=== PATIENT | female | born 1965 | race Caucasian/White ===

== ENCOUNTER 2023-10-22 05:40 | Inpatient (IN) | payer OTHER, SELFPAY ==
[2023-10-22] VITALS (8 sets, daily range): BP systolic 87–129; BP diastolic 42–85; BMI 47.0
--- NOTE | 2023-10-22 02:37 | ED.GENMED ---
History of Present Illness
<CARISSA Cuevas - Last Filed: 10/24/23 20:49>
General
Chief Complaint: Abdominal Pain
Source: patient
Exam Limitations: none
Time Seen by Provider: 10/22/23 02:37
Nursing documentation reviewed up to this point in time: agreed with
Travel History
Have you had any contact with someone who has COVID-19?: No
Do you have any symptoms of coronavirus? Fever > 100 degrees, chills, cough, shortness of breath, sore throat, loss of taste or smell, muscle aches, or headache?: Yes
Symptoms:: chills
History of Present Illness
History of Present Illness:
58-year-old female with metastatic breast cancer, issues with terminal ileum pain in the past, PE A-fib CHF DVT hyperlipidemia left lower branch block presents to the ER complaining abdominal pain. She reports pain started around 6:00 after eating.
She feels pain is in her lower abdomina rate region over her umbilical region. She is nauseous with this pain however has not vomited. She reports that she has had issues with her terminal ileum several times in the past. They are unsure of
exact cause of symptoms. She reports was last here in May for this.
Pt denies in urinary frequency urgency or dysuria l
<EILEEN Barnes - Last Filed: 10/22/23 05:29>
History of Present Illness
History of Present Illness:
58-year-old female with metastatic breast cancer, issues with terminal ileum pain in the past, PE A-fib CHF DVT hyperlipidemia left lower branch block presents to the ER complaining abdominal pain. She reports pain started around 6:00 after eating.
She feels pain is in her lower abdomen region over her umbilical region. She is nauseous with this pain however has not vomited. She reports that she has had issues with her terminal ileum several times in the past. They are unsure of exact
cause of symptoms. She reports was last here in May for this.
Pt denies in urinary frequency urgency or dysuria, fever, diarrhea, constipation, edema, cough, CP or SOB.
Past History
<CARISSA Cuevas - Last Filed: 10/24/23 20:49>
Past History
ED Past Medical History: Arrthythmia (Paroxysmal atrial fibrillation), Cancer (Metastatic breast cancer in remission), Other (IBS, diverticulosis, L BBB, Ulcers) and Other (Recurrent partial small bowel obstructions); Negative HTN,
Hypercholesterolemia or NIDDM
ED Past Surgical History: Gynecological (hysterectomy,), Urological (Partial left Nephrectomy) and Other (Skin cancer removal, right mastectomy)
Social History
Tobacco: Former smoker
Alcohol: None
Drug: None
Personal:
Living: with family
Employment: Employed
Family History
Family History: Other (Noncontributory sister passed from breast cancer father passed from gallbladder cancer)
Review of Systems
<CARISSA Cuevas - Last Filed: 10/24/23 20:49>
Review of Systems
Allergies reviewed?: Yes
All Other Systems: ROS reviewed and negative except as documented in HPI and ROS
Constitutional: Reports no symptoms; Denies fever, fatigue or chills
EENT: Reports no symptoms
Respiratory: Reports no symptoms
Cardiac: Reports no symptoms
ABD/GI: Reports abdominal pain and nausea; Denies vomiting, diarrhea or constipated
Musculoskeletal: Reports no symptoms
Skin: Reports no symptoms
Psychiatric: Reports no symptoms
<EILEEN Barnes - Last Filed: 10/22/23 05:29>
Review of Systems
: Reports no symptoms; Denies dysuria or bleeding
Phy Exam
<CARISSA Cuevas - Last Filed: 10/24/23 20:49>
General Physical Exam
General Presentation: no apparent distress
General age: appears stated age
General Skin: warm and dry
General Habitus: normal and obese
General Mental: alert
Gastrointestinal Exam
Gastrointestinal Exam: soft and other (tender joycelyn-umbilical region )
Neurological Exam
Neurological Exam: alert and oriented x3
Musculoskeletal Exam
Musculoskeletal Exam: full ROM
Skin Exam
Skin Exam: normal color and warm/dry
Psychiatric Exam
Psychiatric Exam: normal mood/affect
<EILEEN Barnes - Last Filed: 10/22/23 05:29>
General Physical Exam
General Hydration: appears well hydrated
Eye Exam
Eye Exam: PERRL
Cardiovascular Exam
Cardiovascular Exam: regular rate/rhythm, no edema, no murmur and normal peripheral pulses
Heart Sounds: normal
Pulmonary Exam
Pulmonary Exam: lungs clear, no respiratory distress, no crackles and no wheezing
Gastrointestinal Exam
Gastrointestinal Exam: normal bowel sounds
Course
<CARISSA Cuevas - Last Filed: 10/24/23 20:49>
Orders/Labs/Results
Orders:
Orders
10/22/23 02:46
CT Abd/Pel (IV only)-[facility] only Urgent
Comment:
Reason For Exam: abd pain
0.9% Sodium Chloride 1000 ml [Nss] 1,000 ml IV BOLUS
HYDROmorphone [Dilaudid] 1 mg IV NOW STA
Ondansetron Injectable [Zofran] 4 mg IV NOW STA
10/22/23 02:49
Complete Blood Count/With Diff Urgent
10/22/23 03:36
Comprehensive Metabolic Panel Urgent
Lipase Urgent
10/22/23 04:49
HYDROmorphone [Dilaudid] 0.5 mg IV NOW STA
Ondansetron Injectable [Zofran] 4 mg IV NOW STA
10/22/23 05:05
Lactic Acid Urgent
10/22/23 05:27
Admit/Transfer Patient As Directed
Co-Sign Provider:
Level of Care: Inpatient admission
Assign to:: Medical/Surgical
Physician / Group: Jaswant
Diagnosis: SBO
Reason for Hospitalization: SBO
Expected length of stay greater than two midnights?: Yes
ELOS- Estimated Length of Stay in days: 2
I certify the patient meets the requirements for IP care: Yes
10/22/23 05:28
Code Status As Directed
Resuscitation Status: Full Code
10/22/23 07:27
Acetaminophen [Tylenol] 650 mg PO Q4HPRN PRN
HYDROmorphone [Dilaudid] 0.5 mg IV Q4HPRN PRN
Ondansetron Injectable [Zofran] 4 mg IV Q6HPRN PRN
10/22/23 07:27
Consult Notification Routine
Specialty to Notify: Surgical
Date consulting provider notified: 10/22/23
Time consulting provider notified: 07:30
Notified:: Provider
Comment: TT 7:30
SURGICAL CONSULT Routine
Consulting Provider: Casey Pereira
Was physician already notified: No
Reason for consult: SBO
Activity As Directed
Activity Level: Ambulate
I/O [Intake/ Output] As Directed
Frequency: Per unit guidelines
Vital Signs As Directed
Frequency: Per unit guidelines
Weight As Directed
Frequency: Daily
Oxygen Therapy [O2 Therapy] [RESP] Routine
Titrate/Wean O2 to maintain O2 sat greater than (%): 94
DX Deep Vein Thrombosis Video Routine
10/22/23 08:00
Carvedilol [Coreg] 12.5 mg PO BID
Heparin 5,000 units SC Q12
Sacubitril 97/Valsartan 103 [Entresto 97 mg/103 mg] 1 tab PO BID
palbociclib [Ibrance] 100 mg PO DAILY
10/22/23 08:46
TSH Reflex To Free T4 Routine
10/22/23 12:00
Stsmkjxkc-Tsf-Cwdb [Femara] 2.5 mg PO DAILY@1200
10/22/23 14:45
Urinalysis Reflex To Culture Urgent
Date Specimen was Collected: 10/22/23
Time Specimen was Collected: 14:42
10/23/23 05:57
Basic Metabolic Panel IN AM
Complete Blood Count/No Diff IN AM
10/23/23 Breakfast
NPO
Allow oral meds: Yes
Allow clear liquids: Sips of Clears
NPO with Ice Chips: Yes
Abnormal Lab Results
10/22/23 10/22/23
02:49 03:36
WBC 3.9 L 10^3/uL
(4.8-10.8)
RBC 3.68 L 10^6/uL
(4.20-5.40)
Hgb 11.8 L g/dL
(12.0-16.0)
Hct 35.2 L %
(37.0-47.0)
MCH 32.1 H pg
(27.0-31.0)
RDW 15.7 H %
(11.5-14.5)
Absolute Lymphs (auto) 0.8 L 10^3/uL
(1.2-3.4)
Lymphocytes % 19.3 L %
(20.5-51.1)
Chloride 109 H mmol/L
(98-107)
Glucose 116 H mg/dl
(70-99)
Calcium 8.3 L mg/dl
(8.4-10.2)
Total Protein 6.1 L g/dl
(6.3-8.2)
10/22/23 02:49
10/22/23 03:36
Vital Signs
Initial and Last Documented VS:
Initial Vital Signs
Temp Pulse Resp BP Pulse Ox
99.3 F 101 22 112/80 97
10/22/23 01:43 10/22/23 01:43 10/22/23 01:43 10/22/23 01:43 10/22/23 01:43
Last Documented Vital Signs
Temp Pulse Resp BP Pulse Ox
98.0 F 95 16 110/66 95
10/23/23 07:00 10/23/23 07:00 10/23/23 07:00 10/23/23 08:18 10/23/23 08:20
Supply Person consulted with Physician
Supply Person consulted with physician?: Yes
Name of Physician Consulted: Benjamín
<EILEEN Barnes - Last Filed: 10/22/23 05:29>
Orders/Labs/Results
Orders:
Orders
10/22/23 02:46
CT Abd/Pel (IV only)-DH only Urgent
Comment:
Reason For Exam: abd pain
0.9% Sodium Chloride 1000 ml [Nss] 1,000 ml IV BOLUS
HYDROmorphone [Dilaudid] 1 mg IV NOW STA
Ondansetron Injectable [Zofran] 4 mg IV NOW STA
10/22/23 02:49
Complete Blood Count/With Diff Urgent
10/22/23 03:36
Comprehensive Metabolic Panel Urgent
Lipase Urgent
10/22/23 04:49
HYDROmorphone [Dilaudid] 0.5 mg IV NOW STA
Ondansetron Injectable [Zofran] 4 mg IV NOW STA
10/22/23 05:05
Lactic Acid Urgent
10/22/23 05:27
Admit/Transfer Patient As Directed
Co-Sign Provider:
Level of Care: Inpatient admission
Assign to:: Medical/Surgical
Physician / Group: Jaswant
Diagnosis: SBO
Reason for Hospitalization: SBO
Expected length of stay greater than two midnights?: Yes
ELOS- Estimated Length of Stay in days: 2
I certify the patient meets the requirements for IP care: Yes
10/22/23 05:28
Code Status As Directed
Resuscitation Status: Full Code
10/22/23 07:27
Acetaminophen [Tylenol] 650 mg PO Q4HPRN PRN
HYDROmorphone [Dilaudid] 0.5 mg IV Q4HPRN PRN
Ondansetron Injectable [Zofran] 4 mg IV Q6HPRN PRN
10/22/23 07:27
Consult Notification Routine
Specialty to Notify: Surgical
Date consulting provider notified: 10/22/23
Time consulting provider notified: 07:30
Notified:: Provider
Comment: TT 7:30
SURGICAL CONSULT Routine
Consulting Provider: Casey Pereira
Was physician already notified: No
Reason for consult: SBO
Activity As Directed
Activity Level: Ambulate
I/O [Intake/ Output] As Directed
Frequency: Per unit guidelines
Vital Signs As Directed
Frequency: Per unit guidelines
Weight As Directed
Frequency: Daily
Oxygen Therapy [O2 Therapy] [RESP] Routine
Titrate/Wean O2 to maintain O2 sat greater than (%): 94
DX Deep Vein Thrombosis Video Routine
10/22/23 08:00
Carvedilol [Coreg] 12.5 mg PO BID
Heparin 5,000 units SC Q12
Sacubitril 97/Valsartan 103 [Entresto 97 mg/103 mg] 1 tab PO BID
palbociclib [Ibrance] 100 mg PO DAILY
10/22/23 08:46
TSH Reflex To Free T4 Routine
10/22/23 12:00
Fnvzlcrsj-Tdc-Rjpo [Femara] 2.5 mg PO DAILY@1200
10/22/23 14:45
Urinalysis Reflex To Culture Urgent
Date Specimen was Collected: 10/22/23
Time Specimen was Collected: 14:42
10/23/23 05:57
Basic Metabolic Panel IN AM
Complete Blood Count/No Diff IN AM
10/23/23 Breakfast
NPO
Allow oral meds: Yes
Allow clear liquids: Sips of Clears
NPO with Ice Chips: Yes
Abnormal Lab Results
10/22/23 10/22/23
02:49 03:36
WBC 3.9 L 10^3/uL
(4.8-10.8)
RBC 3.68 L 10^6/uL
(4.20-5.40)
Hgb 11.8 L g/dL
(12.0-16.0)
Hct 35.2 L %
(37.0-47.0)
MCH 32.1 H pg
(27.0-31.0)
RDW 15.7 H %
(11.5-14.5)
Absolute Lymphs (auto) 0.8 L 10^3/uL
(1.2-3.4)
Lymphocytes % 19.3 L %
(20.5-51.1)
Chloride 109 H mmol/L
(98-107)
Glucose 116 H mg/dl
(70-99)
Calcium 8.3 L mg/dl
(8.4-10.2)
Total Protein 6.1 L g/dl
(6.3-8.2)
10/22/23 02:49
10/22/23 03:36
Vital Signs
Initial and Last Documented VS:
Initial Vital Signs
Temp Pulse Resp BP Pulse Ox
99.3 F 101 22 112/80 97
10/22/23 01:43 10/22/23 01:43 10/22/23 01:43 10/22/23 01:43 10/22/23 01:43
Last Documented Vital Signs
Temp Pulse Resp BP Pulse Ox
98.0 F 95 16 110/66 95
10/23/23 07:00 10/23/23 07:00 10/23/23 07:00 10/23/23 08:18 10/23/23 08:20
<Moise Butts DO - Last Filed: 10/22/23 04:50>
Orders/Labs/Results
Orders:
Orders
10/22/23 02:46
CT Abd/Pel (IV only)-[facility] only Urgent
Comment:
Reason For Exam: abd pain
0.9% Sodium Chloride 1000 ml [Nss] 1,000 ml IV BOLUS
HYDROmorphone [Dilaudid] 1 mg IV NOW STA
Ondansetron Injectable [Zofran] 4 mg IV NOW STA
10/22/23 02:49
Complete Blood Count/With Diff Urgent
10/22/23 03:36
Comprehensive Metabolic Panel Urgent
Lipase Urgent
10/22/23 04:49
HYDROmorphone [Dilaudid] 0.5 mg IV NOW STA
Ondansetron Injectable [Zofran] 4 mg IV NOW STA
10/22/23 05:05
Lactic Acid Urgent
10/22/23 05:27
Admit/Transfer Patient As Directed
Co-Sign Provider:
Level of Care: Inpatient admission
Assign to:: Medical/Surgical
Physician / Group: Jaswant
Diagnosis: SBO
Reason for Hospitalization: SBO
Expected length of stay greater than two midnights?: Yes
ELOS- Estimated Length of Stay in days: 2
I certify the patient meets the requirements for IP care: Yes
10/22/23 05:28
Code Status As Directed
Resuscitation Status: Full Code
10/22/23 07:27
Acetaminophen [Tylenol] 650 mg PO Q4HPRN PRN
HYDROmorphone [Dilaudid] 0.5 mg IV Q4HPRN PRN
Ondansetron Injectable [Zofran] 4 mg IV Q6HPRN PRN
10/22/23 07:27
Consult Notification Routine
Specialty to Notify: Surgical
Date consulting provider notified: 10/22/23
Time consulting provider notified: 07:30
Notified:: Provider
Comment: TT 7:30
SURGICAL CONSULT Routine
Consulting Provider: Casey Pereira
Was physician already notified: No
Reason for consult: SBO
Activity As Directed
Activity Level: Ambulate
I/O [Intake/ Output] As Directed
Frequency: Per unit guidelines
Vital Signs As Directed
Frequency: Per unit guidelines
Weight As Directed
Frequency: Daily
Oxygen Therapy [O2 Therapy] [RESP] Routine
Titrate/Wean O2 to maintain O2 sat greater than (%): 94
DX Deep Vein Thrombosis Video Routine
10/22/23 08:00
Carvedilol [Coreg] 12.5 mg PO BID
Heparin 5,000 units SC Q12
Sacubitril 97/Valsartan 103 [Entresto 97 mg/103 mg] 1 tab PO BID
palbociclib [Ibrance] 100 mg PO DAILY
10/22/23 08:46
TSH Reflex To Free T4 Routine
10/22/23 12:00
Fmthhjrlk-Vlu-Ykft [Femara] 2.5 mg PO DAILY@1200
10/22/23 14:45
Urinalysis Reflex To Culture Urgent
Date Specimen was Collected: 10/22/23
Time Specimen was Collected: 14:42
10/23/23 05:57
Basic Metabolic Panel IN AM
Complete Blood Count/No Diff IN AM
10/23/23 Breakfast
NPO
Allow oral meds: Yes
Allow clear liquids: Sips of Clears
NPO with Ice Chips: Yes
Abnormal Lab Results
10/22/23 10/22/23
02:49 03:36
WBC 3.9 L 10^3/uL
(4.8-10.8)
RBC 3.68 L 10^6/uL
(4.20-5.40)
Hgb 11.8 L g/dL
(12.0-16.0)
Hct 35.2 L %
(37.0-47.0)
MCH 32.1 H pg
(27.0-31.0)
RDW 15.7 H %
(11.5-14.5)
Absolute Lymphs (auto) 0.8 L 10^3/uL
(1.2-3.4)
Lymphocytes % 19.3 L %
(20.5-51.1)
Chloride 109 H mmol/L
(98-107)
Glucose 116 H mg/dl
(70-99)
Calcium 8.3 L mg/dl
(8.4-10.2)
Total Protein 6.1 L g/dl
(6.3-8.2)
10/22/23 02:49
10/22/23 03:36
Vital Signs
Initial and Last Documented VS:
Initial Vital Signs
Temp Pulse Resp BP Pulse Ox
99.3 F 101 22 112/80 97
10/22/23 01:43 10/22/23 01:43 10/22/23 01:43 10/22/23 01:43 10/22/23 01:43
Last Documented Vital Signs
Temp Pulse Resp BP Pulse Ox
98.0 F 95 16 110/66 95
10/23/23 07:00 10/23/23 07:00 10/23/23 07:00 10/23/23 08:18 10/23/23 08:20
<CARISSA Cuevas - Last Filed: 10/24/23 20:49>
MDM/Problems Addressed
Differential Diagnosis Includes:
Not limited to terminal ileitis, diverticulitis, constipation, biliary colic
MDM/Problems Addressed:
250:Patient with history of recurrent abdominal pain. She reports she has had terminal ileitis in the past. She reports this does feel similar. She started with abdominal pain around periumbilical area around 6 PM. Mild nausea she denies any
urine frequency urgency or dysuria. Denies any constipation or diarrhea. Patient's last CAT scan was May. She does have history of metastatic breast cancer with partial nephrectomy with normal renal function in May. Will medicate for
pain hydrate and treat nausea. Case discussed with the physician and full care transferred to DR Butts at this time.
<EILEEN Barnes - Last Filed: 10/22/23 05:29>
*Critical Care Note
Total Time (30-74mins, 75-104mins- exclusive of procedures): Not Applicable
<Moise Butts DO - Last Filed: 10/22/23 04:50>
Update Note
Update Note:
CT ABDOMEN AND PELVIS with IV contrast
IMPRESSION:
Comparison: 08/12/2023.
Findings compatible with a small bowel obstruction.
Multiple dilated loops of small bowel measuring up to 3.32 cm. Transition point in the right lower quadrant where the small bowel becomes decompressed and somewhat thickened.
Small amount of free fluid and mesenteric edema. Consider correlation with lactate levels for any signs of ischemia.
Hysterectomy.
Multiple subcentimeter low attenuation lesions in the liver. These appear increased in number compared to the prior. Follow-up advised to exclude metastatic disease.
Right-sided mastectomy.
Sclerotic focus within the L3 vertebral body, unchanged.
ED Attending Note
<CARISSA Cuevas - Last Filed: 10/24/23 20:49>
-
Portions of this chart may have been created with voice recognition software.� Occasional wrong word or��sound alike� substitutions may have occurred due to the inherent limitations of voice recognition software.
<Moise Butts DO - Last Filed: 10/22/23 04:50>
ED Attending Note
Patient seen and examined by attending physician: Yes
I performed the substantive portion of visit, reviewed & personally made and approve the management plan that is documented in note by myself or MORGAN.: Yes
ED Attending Note:
This a pleasant 58-year-old female presents with abdominal pain. She has a history of metastatic breast cancer and has had terminal ileitis in the past. She reports that the pain began around 6 PM just after finishing dinner. She states that the
pain is in her lower abdomen. She does report some nausea without vomiting. States that this pain is similar to her previous terminal ileitis in the past. She is seen by gastroenterology but they have not been able to determine the etiology.
Patient was seen in conjunction with the nurse practitioner and the PA student. I have reviewed and agree with the history and treatment plan presented. On my independent physical exam, patient is awake, alert, and oriented x3, minimal acute
distress resting comfortably on the bed. Abdomen is soft and on distended. Moves all 4 extremities. Skin is warm and dry.
Plan is lab work and CT scan.
Discharge Plan
Departure
Patient Disposition: Admit
Date of Disposition: 10/22/23
Time of Disposition: 04:50
Admit to: Telemetry
Presentation/result/management discussed w/ accepting MD/DO: Hospitalist
Condition: Fair
Discharge Problem:
Small bowel obstruction
Interventions
Interventions:
*Neglect/Abuse Screening Last Done: 10/22/23 01:43
[2023-10-22] MEDS: DILAUDID 1 MG IV (02:53)
[2023-10-22] MEDS: ZOFRAN 4 MG IV ×2 (02:53→04:56)
[2023-10-22] MEDS: NSS 1000 IV (02:53)
[2023-10-22 03:07] LABS: % Immature Granulocytes 0.3 % (0-0.5); % Lymphocytes 19.3 % (20.5-51.1); % Neutrophils 70.4 % (42.2-75.2); Absolute Lymphocytes 0.8 10^3/uL (1.2-3.4); Absolute Monocytes 0.3 10^3/uL (0.1-0.6); Absolute Neutrophils 2.7 10^3/uL (1.4-6.5); Hematocrit 35.2 % (37.0-47.0); Hemoglobin 11.8 g/dL (12.0-16.0); Mean Corp Hgb Conc. 33.5 g/dL (33.0-37.0); Mean Corpuscular Hgb 32.1 pg (27.0-31.0); Mean Corpuscular Volume 95.7 fL (81.0-99.0); Mean Platelet Volume 10.2 fL (7.4-10.4); Nucleated Red Blood Cells % 0 %; Platelet Count 195 10^3/uL (130-400); Red Blood Cell Count 3.68 10^6/uL (4.20-5.40); Red Cell Dist. Width 15.7 % (11.5-14.5); White Blood Cell Count 3.9 10^3/uL (4.8-10.8)
[2023-10-22 04:06] LABS: ALT (SGPT) 14 U/L (0-35); AST (SGOT) 20 U/L (14-36); Albumin 3.6 g/dl (3.5-5.0); Alkaline Phosphatase 87 U/L (38-126); Blood Urea Nitrogen 14 mg/dl (7-17); Calcium 8.3 mg/dl (8.4-10.2); Carbon Dioxide 25 mmol/L (22-30); Chloride 109 mmol/L (98-107); Glucose 116 mg/dl (70-99); Lipase 57 U/L (23-300); Sodium 137 mmol/L (135-145); Total Bilirubin 0.6 mg/dl (0.2-1.3); Total Protein 6.1 g/dl (6.3-8.2); eGFR > 60.00
[2023-10-22] MEDS: DILAUDID 0.5 MG IV (04:57)
--- NOTE | 2023-10-22 05:13 | HPS.HSE ---
Family Physician
-
Family Physician: Pedro Hartmann
Chief Complaint
-
Abd Pain
History of Present Illness
Patient is a 58y F with PMH significant for metastatic breast cancer, history of renal cancer and history of DVT / PE who presents to ED complaining of abdominal pain. Patient states that pain started suddenly around 6 PM this evening after
eating dinner. Patient notes pain in the center of the abdomen near the umbilicus. She reports nausea but no episodes of emesis. She had a normal BM on AM and notes that she has passed a small amount of flatus since the pain began.
Patient reports multiple prior episodes of similar symptoms since her partial L nephrectomy in 2014. Most episodes have been very mild and her last hospitalization for this was about 4 years ago.
Patient describes a 'terminal ileum problem', but it sounds more c/w RLQ transition point and recurrent SBO than IBD / terminal ileitis. She has had colonoscopies / biopsies in the past which have reportedly been normal.
Medical History
Past Medical History
Past Medical History: Reports Other
Additional Past Medical History:
Metastatic Breast Cancer
GERD / Hiatal Hernia
Left Kidney Oncocytoma
Migraine Headaches
PFO
CHF
Anxiety / Depression
Basal Cell Skin Cancer
ASCVD / Carotid Stenosis
History of PE and DVT
Past Surgical History: Reports Other
Additional Past Surgical History:
Left Partial Nephrectomy
Right Mastectomy / Axillary Dissection
Skin Cancer Excisions
EFREN / BSO
Social History
Tobacco: Former Smoker (Quit smoking 20 years ago. Approx 10 pack years total use.)
Alcohol: None
Personal:
Living: With Family
Family History
Family History: Not pertinent
Allergies / Home Medications
Allergies reflects when Allergies were last updated in [employer].
Home Medications with original date entered in [employer]
Allergy/Medication List:
Allergies
Allergy/AdvReac Type Severity Reaction Status Date / Time
No Known Allergies Allergy Verified 10/22/23 01:42
Home Medications
letrozole 2.5 mg tablet 2.5 mg PO DAILY@1200 Cancer 06/01/16
palbociclib 100 mg capsule (Ibrance) 100 mg PO UD Cancer 03/07/18
cholecalciferol (vitamin D3) 50 mcg (2,000 unit) tablet 2,000 units PO DAILY Supplement 11/18/19
Lactobac no.2-Bifidobac no.1-S. thermo 112.5 billion cell capsule (Visbiome) 1 cap PO DAILY Supplement ##0 02/05/20
omeprazole magnesium 20 mg tablet,delayed release (Prilosec OTC) 20 mg PO DAILY Gastrointestinal issue 04/29/20
acetaminophen 325 mg tablet 650 mg PO Q6HPRN PRN mild pain/ fever>100.5F 06/17/20
apixaban 5 mg tablet (Eliquis) 5 mg PO BID #60 tabs 06/18/20
ascorbic acid (vitamin C) 500 mg tablet (Vitamin C) 500 mg PO DAILY 12/16/22
carvedilol 12.5 mg tablet (Coreg) 12.5 mg PO BID 12/16/22
dapagliflozin propanediol 10 mg tablet (Farxiga) 10 mg PO DAILY 12/16/22
ezetimibe 10 mg tablet (Zetia) 10 mg PO Q48H 12/16/22
sacubitril 97 mg-valsartan 103 mg tablet (Entresto) 1 tab PO BID 12/16/22
spironolactone 25 mg tablet 12.5 mg PO DAILY 12/16/22
therapeutic multivitamin 1 tab PO DAILY 12/16/22
Review of Systems
-
History Source: Patient
A 12 point ROS was completed and negative except as noted: Yes
Constitutional: Denies Fever or Chills
Respiratory: Denies Cough or Trouble Breathing
Cardiac: Denies Chest Pain or Palpitations
Abdomen/GI: Reports Abdominal Pain and Nausea; Denies Vomiting, Diarrhea or Constipated
: Denies Dysuria or Frequency
Neurological: Denies Dizzy or Headache
Psych: Denies Depression or Anxiety
Physical Exam
Vital Signs
Vital Signs
Temp Pulse Resp BP Pulse Ox
99.3 F 77 20 102/66 96
10/22/23 01:43 10/22/23 04:00 10/22/23 04:00 10/22/23 04:00 10/22/23 04:00
Physical Exam
General: Other (58y F in mild distress due to abdominal pain.)
HEENT: Moist mucous membranes
Respiratory: Clear; No Wheezes, Rales or Rhonchi
Cardiac: S1/S2, Regular Rhythm and Murmur (II/ SOCORRO)
GI: Soft, Non Distended, Normal Bowel Sounds and Other (Mildly tender in the RUQ. No rebound / guarding. Pos BS.)
Musculoskeletal: No Clubbing, No Cyanosis and No Edema
Neuro: AO x 3
Laboratory Results
-
10/22/23 02:49
10/22/23 03:36
Laboratory Results
Total Bilirubin 0.6 mg/dl (0.2-1.3) 10/22/23 03:36
AST 20 U/L (14-36) 10/22/23 03:36
ALT 14 U/L (0-35) 10/22/23 03:36
Alkaline Phosphatase 87 U/L (38-126) 10/22/23 03:36
Lipase 57 U/L (23-300) 10/22/23 03:36
Impression/Plan
-
A/P: Patient is a 58y F with PMH significant for metastatic breast cancer and prior SBO who presents to ED complaining of abdominal pain starting this evening.
SBO
- Admit for further evaluation and treatment.
- NPO, pain control, supportive care, etc.
- Surgery evaluation.
- Consider NG decompression if symptoms worsen or patient develops emesis, etc.
Metastatic Breast Cancer
- Stable. Continue current med regimen including Letrozole and Ibrance.
Chronic HFrEF
- Stable. No evidence of significant volume overload on exam.
- Hold on 'maintenance' IVFs for now.
- Follow I/Os, daily weights, etc.
- Hold spironolactone until patient tolerating PO diet.
History of DVT / PE
DVT Prophylaxis
- Stable. Hold Eliquis for now in the event that patient requires intervention.
- Resume once patient able to take POs.
- Low-dose subcut heparin prophylaxis for now given history.
GERD / Hiatal Hernia
- Stable. Continue daily PPI.
Code Status: Full
[2023-10-22 05:34] LABS: Lactic Acid 0.9 mmol/L (0.7-2.0)
--- NOTE | 2023-10-22 09:10 | W.PN.HOSP.TC ---
Today's Communication/Plan
-
IV fluids
N.p.o.
Surgery consult
Assessment / Plan
Assessment / Plan
Gen-AAOx3, NAD, morbid obesity
HEENT-NC, AT, anicteric, clear oral mm
Neck-supple
CV-reg, no M, +S1/S2
Lungs-clear B/L
Abd-soft, tender periumbilical area, no guarding
Ext-no edema
Musculoskeletal-no cyanosis, clubbing
Skin-warm and dry
Neuro-grossly non-focal
Psych-calm, cooperative
Small bowel obstruction -this is her second episode of obstruction. Lactate level normal. Last episode was about 4 years ago. Last bowel movement was 2/8 morning. Continue n.p.o., IV fluids, antiemetics, analgesics. General surgery consult. NG
tube if her symptoms worsen.
Metastatic breast cancer -right mastectomy, axillary dissection. CT notes incidental 2 tiny subcentimeter low-attenuation right hepatic lesions too small to characterize. Recommend outpatient hepatic MRI. Sclerotic L3 vertebral focus suspicious
for bony metastatic disease. Follow-up with oncology.
Chronic heart failure reduced EF -stable.
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
GERD/hiatal hernia
History of left renal oncocytoma -left partial nephrectomy.
PFO
Anxiety/depression
Carotid stenosis
Morbid obesity due to excess calories
Full code
Anticipated Discharge: 24 - 48 hours
Subjective/Interval History
-
Date of Service: October 22, 2023
Patient seen and examined. States her abdominal pain comes and goes. Currently denies nausea.
Objective Data
-
Labs:
Laboratory Results
10/22/23 10/22/23
02:49 03:36
WBC 3.9 L
Hgb 11.8 L
Hct 35.2 L
Plt Count 195
Sodium Cancelled 137
Potassium Cancelled 4.0
Chloride Cancelled 109 H
Carbon Dioxide Cancelled 25
BUN Cancelled 14
Creatinine Cancelled 0.9
Glucose Cancelled 116 H
Calcium Cancelled 8.3 L
Total Bilirubin Cancelled 0.6
AST Cancelled 20
ALT Cancelled 14
Alkaline Phosphatase Cancelled 87
Vital Signs:
Vital Signs
Temp Pulse Resp BP Pulse Ox
97.9 F 89 20 115/80 93
10/22/23 07:30 10/22/23 07:30 10/22/23 07:30 10/22/23 07:30 10/22/23 07:30
Review of Systems
-
History Source: Patient
All other systems: Reviewed and negative
[2023-10-22] MEDS: COREG 12.5 MG PO (09:59)
[2023-10-22] MEDS: HEPARIN 5000 UNITS SC ×2 (10:00→20:10)
[2023-10-22] MEDS: ENTRESTO 97 MG/103 MG 1 TAB PO (10:00)
[2023-10-22] MEDS: 0.45%NACL 1000 IV (10:04)
[2023-10-22 10:24] LABS: TSH Reflex To Free T4 3.18 uIU/ml (0.47-4.68)
--- NOTE | 2023-10-22 12:48 | CON.GS ---
Consultation
-
Requesting Provider: Jaswant
Performing Provider: Konstantin
Reason for Consultation: Small bowel obstruction
Medical History
-
Chief Complaint: Abdominal pain, nausea
History of Present Illness:
Patient is a 58-year-old female previously known to our surgical service for prior hospitalizations due to small bowel obstructions. Last episode with surgical consultation 05/05/2020.
She has a prior abdominal surgical history including EFREN/BSO in 2004 and then a laparoscopic assisted left partial nephrectomy in 2014. It was after her partial nephrectomy that she began having symptoms of intermittent bloating, distention nausea
and vomiting. Her episodes typically rather promptly resolve. They were occurring frequently around 2019 but she has done relatively well the past few years.
Her last episode requiring emergency department evaluation alone was in May. She was in her usual baseline state of health until yesterday evening at 6 PM after having a hamburger for dinner she felt colicky abdominal plain, bloating and
nausea same as her previous episodes but more severe which prompted emergency department evaluation. She did not vomit. Her last bowel movement was yesterday and was a regular formed stool prior to her symptoms starting. She does not report any
recent dietary indiscretions that she can associate this episode with.
She states that she feels as though her symptoms have already has begun resolving. No further abdominal pain. Feels as if she has the urge to pass flatus and may be even a bowel movement soon. No nausea.
Past Medical History
Past Medical History: Other (Obesity, hypercholesterolemia, migraine headaches, recurrent small bowel obstructions, left bundle branch block, anxiety disorder, history of stage IV breast cancer with spinal metastasis)
Past Surgical History: Other (Right total mastectomy and axillary lymph node dissection in 2002, EFREN/BSO 2004, lap hand-assisted left partial nephrectomy 2014, multiple Mohs procedures for basal cell carcinoma)
Social History
Tobacco: Non-Smoker
Alcohol: None
Family History
Family History: Reviewed & Not Pertinent
Allergies / Home Medications
Allergy/AdvReac Type Severity Reaction Status Date / Time
No Known Allergies Allergy Verified 10/22/23 01:42
Medication Instructions Recorded Confirmed Type
letrozole 2.5 mg tablet 2.5 mg PO DAILY@1200 Cancer 06/01/16 10/22/23 History
palbociclib 100 mg capsule 100 mg PO DAILY Cancer 03/07/18 10/22/23 History
(Ibrance)
cholecalciferol (vitamin D3) 50 2,000 units PO DAILY Supplement 11/18/19 10/22/23 History
mcg (2,000 unit) tablet
omeprazole magnesium 20 mg 20 mg PO DAILY Gastrointestinal 04/29/20 10/22/23 History
tablet,delayed release (Prilosec issue
OTC)
apixaban 5 mg tablet (Eliquis) 5 mg PO BID #60 tabs 06/18/20 10/22/23 Rx
ascorbic acid (vitamin C) 500 mg 500 mg PO DAILY 12/16/22 10/22/23 History
tablet (Vitamin C)
carvedilol 12.5 mg tablet (Coreg) 12.5 mg PO BID 12/16/22 10/22/23 History
dapagliflozin propanediol 10 mg 10 mg PO DAILY 12/16/22 10/22/23 History
tablet (Farxiga)
ezetimibe 10 mg tablet (Zetia) 10 mg PO Q48H 12/16/22 10/22/23 History
sacubitril 97 mg-valsartan 103 mg 1 tab PO BID 12/16/22 10/22/23 History
tablet (Entresto)
spironolactone 25 mg tablet 12.5 mg PO DAILY 12/16/22 10/22/23 History
Review of Systems
-
History Source: Patient
All other systems: Negative unless noted
A 10 point review of systems was completed, and was negative except as per HPI.
Physical Exam
Vital Signs
Temp Pulse Resp BP Pulse Ox
97.9 F 89 20 115/80 93
10/22/23 07:30 10/22/23 09:59 10/22/23 07:30 10/22/23 09:59 10/22/23 07:30
10/21/23 10/22/23 10/23/23
06:59 06:59 06:59
Actual Weight 127 kg
Lab Results
10/22/23 02:49
10/22/23 03:36
WBC 3.9 10^3/uL (4.8-10.8) L 10/22/23 02:49
Hgb 11.8 g/dL (12.0-16.0) L 10/22/23 02:49
Hct 35.2 % (37.0-47.0) L 10/22/23 02:49
Plt Count 195 10^3/uL (130-400) 10/22/23 02:49
Abs Immat Gran (auto) 0.0 10^3/uL (0-0.05) 10/22/23 02:49
Neutrophils % 70.4 % (42.2-75.2) 10/22/23 02:49
Physical Exam
General: Well Developed, Well Nourished, No Apparent Distress, Comfortable and Other (Lying in hospital bed in her room)
HEENT: Normocephalic, Anicteric and Moist Mucous Membranes
Respiratory: Non Labored Respirations
Cardiac: Regular Rhythm
GI: Soft, Obese and Other (Slightly distended. Minimal periumbilical tenderness. No rebound rigidity or guarding.)
Musculoskeletal: No Edema
Skin: Warm
Neuro: AO x 3
Psych: Calm
Data Reviewed
-
CT Scan: Image Personally Visualized and interpreted, Report Reviewed by me and Discussed with Patient
Labs: Labs Reviewed by me
Assessment / Plan
-
Assessment: 58-year-old female presenting with small bowel obstruction, probable partial with clinical improvement already since emergency department evaluation and admission overnight.
She has had numerous previous occurrences which have all resolved with conservative measures. CT imaging 10/22/2023 reviewed. Approximately moderately dilated loops of small bowel, fluid-filled with small bowel feces sign and transition point
towards the right lower quadrant without evidence of closed-loop obstruction. Some surrounding inflammatory changes but no pneumatosis, no free air, no significant ascites.
In comparison to previous CT imaging this appears very similar to her prior partial obstructions.
Plan: Given clinical stability, improvement since initial evaluation overnight and CT imaging without any radiographic signs suggestive of bowel compromise or immediate threat recommended continued medical management.
Can omit NG tube as she is feeling better and without nausea or vomiting.
Okay for sips of clears/ice chips but would not start clear liquid trays at today
IV fluid hydration
Will see in follow-up tomorrow
[2023-10-22] MEDS: FEMARA 2.5 MG PO (12:58)
--- NOTE | 2023-10-22 15:22 | CM ---
Addendum entered by Milla Araiza 10/22/23 15:26:
Patient reports having VN 20 years ago after breast cancer, denies SNF. Patient confirms Dr. Hartmann as PCP, pharmacy used [facility]. Patient hopeful for discharge tomorrow. CM will continue to follow for discharge planning needs.
Plan; home no needs anticipated.
Original Note:
Patient seen bedside, initial assessment completed. Patient reports she resides with her and son in a multiple story home, is independent with ADLs/IADLs.
[2023-10-22 15:24] LABS: Urine Albumin Negative (Neg - Trace); Urine Bilirubin Negative (Negative); Urine Character Clear (Clear); Urine Color Yellow; Urine Glucose 3+ (Negative); Urine Ketone Negative (Negative); Urine Leukocyte Negative (Negative); Urine Nitrite Negative (Negative); Urine Occult Blood 1+ (Negative); Urine Urobilinogen Negative (Neg - 1+)
[2023-10-22 15:42] LABS: Urine White Cell 0-2 /HPF (0-5)
--- NOTE | 2023-10-22 15:58 | PTCARENOTE ---
Lia Funk, 415-1 bp is 87/42, HR 59. Took readings from both arms. consistant. She has a headache, (possible caffiene withdrawal) Is looking pale. Dr notified. Bolus ordered.
[2023-10-22] MEDS: NSS 500 IV (16:29)
[2023-10-22] MEDS: TYLENOL 650 MG PO (16:32)
--- NOTE | 2023-10-22 16:57 | PTCARENOTE ---
Pt hasn't had a BM today. She reports that she's been passing gas regularly.
[2023-10-22] MEDS: ENTRESTO 97 MG/103 MG PO (20:10)
[2023-10-23] MEDS: 0.45%NACL 1000 IV (00:17)
[2023-10-23 06:00] VITALS: BMI 44.1
[2023-10-23 06:08] LABS: Hematocrit 31.8 % (37.0-47.0); Hemoglobin 10.5 g/dL (12.0-16.0); Mean Corpuscular Hgb 32.5 pg (27.0-31.0); Mean Corpuscular Volume 98.5 fL (81.0-99.0); Mean Platelet Volume 9.6 fL (7.4-10.4); Platelet Count 148 10^3/uL (130-400); Red Blood Cell Count 3.23 10^6/uL (4.20-5.40); Red Cell Dist. Width 15.4 % (11.5-14.5)
[2023-10-23 06:25] LABS: White Blood Cell Count 2.3 10^3/uL (4.8-10.8)
[2023-10-23 06:45] LABS: Blood Urea Nitrogen 10 mg/dl (7-17); Calcium 8.5 mg/dl (8.4-10.2); Carbon Dioxide 23 mmol/L (22-30); Chloride 106 mmol/L (98-107); Estimated Creatinine Clearance 97 ml/min; Glucose 98 mg/dl (70-99); Potassium 3.7 mmol/L (3.5-5.1); Sodium 136 mmol/L (135-145); eGFR > 60.00
[2023-10-23 07:00] VITALS: BP 110/66
[2023-10-23] MEDS: HEPARIN 5000 UNITS SC (08:18)
[2023-10-23] MEDS: ENTRESTO 97 MG/103 MG 1 TAB PO (08:18)
--- NOTE | 2023-10-23 10:51 | W.PN.HOSP.TC ---
Today's Communication/Plan
-
Discharge
Assessment / Plan
Assessment / Plan
Gen-AAOx3, NAD, morbid obesity
HEENT-NC, AT, anicteric, clear oral mm
Neck-supple
CV-reg, no M, +S1/S2
Lungs-clear B/L
Abd-soft, tender periumbilical area, no guarding
Ext-no edema
Musculoskeletal-no cyanosis, clubbing
Skin-warm and dry
Neuro-grossly non-focal
Psych-calm, cooperative
Small bowel obstruction -this is her second episode of obstruction. Lactate level normal. Last episode was about 4 years ago. Last bowel movement was 10/21 morning. Clinically improved. Diet advanced to low residue by general surgery. Patient
eager to go home today.
Metastatic breast cancer -right mastectomy, axillary dissection. CT notes incidental 2 tiny subcentimeter low-attenuation right hepatic lesions too small to characterize. Recommend outpatient hepatic MRI. Sclerotic L3 vertebral focus suspicious
for bony metastatic disease. Follow-up with oncology.
Chronic leukopenia -likely due to Ibrance. Monitor as outpatient.
Chronic heart failure reduced EF -stable.
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
GERD/hiatal hernia
History of left renal oncocytoma -left partial nephrectomy.
PFO
Anxiety/depression
Carotid stenosis
Morbid obesity due to excess calories
Full code
Dispo -stable for discharge today. Outpatient follow-up. updated at the bedside.
32 minutes spent in discharge process.
Anticipated Discharge: Today
Subjective/Interval History
-
Date of Service: October 23, 2023
Patient seen and examined. Feeling much better. Eager to go home today. No complaints.
Objective Data
-
Labs:
Laboratory Results
10/23/23
05:57
WBC 2.3 L*
Hgb 10.5 L
Hct 31.8 L
Plt Count 148 D
Sodium 136
Potassium 3.7
Chloride 106
Carbon Dioxide 23
BUN 10
Creatinine 0.8
Glucose 98
Calcium 8.5
Vital Signs:
Vital Signs
Temp Pulse Resp BP Pulse Ox
98.0 F 95 16 110/66 95
10/23/23 07:00 10/23/23 07:00 10/23/23 07:00 10/23/23 08:18 10/23/23 08:20
I&O
10/22/23 10/23/23 10/24/23
06:59 06:59 06:59
Intake Total 600 / 600
Balance 600 / 600
Review of Systems
-
History Source: Patient
All other systems: Reviewed and negative
--- NOTE | 2023-10-23 10:54 | W.DS.TRANS ---
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
-
Discharge Instructions:
Discharge Diagnosis/Procedures Small bowel obstruction
Diet Low Residue
Activity As tolerated
Driving Restrictions As prior to admission
Bathing Restrictions None
Instructions:
Stand-Alone Forms:
Changes to Home Medications: No
Discharge Medications:
DC Medications w/original date entered in [email or web address]
letrozole 2.5 mg tablet 2.5 mg PO DAILY@1200 Cancer 06/01/16
palbociclib 100 mg capsule (Ibrance) 100 mg PO DAILY Cancer 03/07/18
cholecalciferol (vitamin D3) 50 mcg (2,000 unit) tablet 2,000 units PO DAILY Supplement 11/18/19
omeprazole magnesium 20 mg tablet,delayed release (Prilosec OTC) 20 mg PO DAILY Gastrointestinal issue 04/29/20
apixaban 5 mg tablet (Eliquis) 5 mg PO BID #60 tabs 06/18/20
ascorbic acid (vitamin C) 500 mg tablet (Vitamin C) 500 mg PO DAILY 12/16/22
carvedilol 12.5 mg tablet (Coreg) 12.5 mg PO BID 12/16/22
dapagliflozin propanediol 10 mg tablet (Farxiga) 10 mg PO DAILY 12/16/22
ezetimibe 10 mg tablet (Zetia) 10 mg PO Q48H 12/16/22
sacubitril 97 mg-valsartan 103 mg tablet (Entresto) 1 tab PO BID 12/16/22
spironolactone 25 mg tablet 12.5 mg PO DAILY 12/16/22
Home Medication Changes
Pending Results: No
--- NOTE | 2023-10-23 11:34 | W.PN.GS2 ---
Addendum entered and electronically signed by Ramón Mojica MD 10/23/23 11:56:
I saw and examined the patient.
The Trouble Tracer's note was reviewed and I agree with the note.
Comment: Doing well post-op, abd exam nt, nd, meets criteria for DC
Original Note:
Today's Communication / Plan
-
Dispo planning
Assessment / Plan
-
58 yo female with recurrent sbo's presenting with partial SBO now resolving
AFVSS
Mild leukopenia noted, otherwise labs unremarkable
--Advance to LRD
--Clear for d/c from surgical standpoint once tolerating diet
--OP follow up with Dr. Pryor
Subjective Data
-
Date of Service: October 23, 2023
Patient seen and examined with Dr. Mojica around 0915 this am. She denies n/v. Hungry. Passing flatus. Eager to go home.
Objective Data
-
Intake and Output
10/22/23 10/23/23 10/24/23
06:59 06:59 06:59
Intake Total 600 / 600
Balance 600 / 600
Intake:
Oral fluids 0 / 0
IV fluids (Total) 600 / 600
Other:
Number of approximated MODERATE 3
amounts of urine
Vital Signs
Temp Pulse Resp BP Pulse Ox
98.0 F 95 16 110/66 95
10/23/23 07:00 10/23/23 07:00 10/23/23 07:00 10/23/23 08:18 10/23/23 08:20
Lab Results
10/23/23 05:57
10/23/23 05:57
Calcium 8.5 mg/dl (8.4-10.2) 10/23/23 05:57
Total Bilirubin 0.6 mg/dl (0.2-1.3) 10/22/23 03:36
AST 20 U/L (14-36) 10/22/23 03:36
ALT 14 U/L (0-35) 10/22/23 03:36
Alkaline Phosphatase 87 U/L (38-126) 10/22/23 03:36
Total Protein 6.1 g/dl (6.3-8.2) L 10/22/23 03:36
Albumin 3.6 g/dl (3.5-5.0) 10/22/23 03:36
Physical Exam
-
NAD
ABD soft, nt, nd, inpatient services rn
== END 2023-10-23 12:26 | disposition home or self-care (01) | DRG 389 ==
LOC: 4 WEST ACU 05:40
PROVIDERS: Nurse Practitioner; ADMITTING PHYSICIAN Hospitalist; ATTENDING PHYSICIAN Hospitalist; EMERGENCY PHYSICIAN Student in an Organized Health Care Education/Training Program; FAMILY PHYSICIAN Family Medicine; OTHER PHYSICIAN Surgery
DX: K56.600 Partial intestinal obstruction, unspecified as to cause (principal); C79.51 Secondary malignant neoplasm of bone; I50.22 Chronic systolic (congestive) heart failure; Q21.12 Patent foramen ovale; Z68.41 Body mass index [BMI] 40.0-44.9, adult; E78.00 Pure hypercholesterolemia, unspecified; E11.9 Type 2 diabetes mellitus without complications; I48.0 Paroxysmal atrial fibrillation; I44.7 Left bundle-branch block, unspecified; K21.9 Gastro-esophageal reflux disease without esophagitis; K44.9 Diaphragmatic hernia without obstruction or gangrene; G43.909 Migraine, unspecified, not intractable, without status migrainosus; F32.A Depression, unspecified; F41.9 Anxiety disorder, unspecified; I25.10 Atherosclerotic heart disease of native coronary artery without angina pectoris; D72.819 Decreased white blood cell count, unspecified; I65.29 Occlusion and stenosis of unspecified carotid artery; E66.01 Morbid (severe) obesity due to excess calories; Z85.3 Personal history of malignant neoplasm of breast; Z80.3 Family history of malignant neoplasm of breast; Z87.891 Personal history of nicotine dependence; Z86.718 Personal history of other venous thrombosis and embolism; Z90.5 Acquired absence of kidney; Z90.710 Acquired absence of both cervix and uterus; Z90.11 Acquired absence of right breast and nipple; Z85.828 Personal history of other malignant neoplasm of skin; Z86.711 Personal history of pulmonary embolism
CPT/HCPCS: 74177; 80048; 80053; 81003; 81015; 83605; 83690; 84443; 85025; 85027; 96361; 96374; 96375; 96376; 99285; Q9967

== ENCOUNTER → 2023-12-24 10:01 | Outpatient (REF) | payer OTHER, SELFPAY | LOC: PAVMRI 10:01 | PROVIDERS: ATTENDING PHYSICIAN Internal Medicine Medical Oncology; FAMILY PHYSICIAN Family Medicine | DX: C50.919 Malignant neoplasm of unspecified site of unspecified female breast (principal) | CPT/HCPCS: 74181 ==

== ENCOUNTER 2024-01-01 05:38 | Observation (INO) | payer OTHER, SELFPAY ==
[2024-01-01] VITALS (17 sets, daily range): BP systolic 65–147; BP diastolic 33–77; BMI 47.8; BMI 44.5
[2024-01-01 02:10] LABS: % Basophils 1.7 % (0-2); % Eosinophils 0.6 % (0-6); % Immature Granulocytes 0.4 % (0-0.5); % Lymphocytes 17.9 % (20.5-51.1); % Monocytes 7.3 % (1.7-9.3); % Neutrophils 72.1 % (42.2-75.2); Absolute Basophils 0.1 10^3/uL (0-0.2); Absolute Lymphocytes 0.9 10^3/uL (1.2-3.4); Absolute Monocytes 0.4 10^3/uL (0.1-0.6); Absolute Neutrophils 3.5 10^3/uL (1.4-6.5); Hematocrit 32.7 % (37.0-47.0); Hemoglobin 11.1 g/dL (12.0-16.0); Mean Corp Hgb Conc. 33.9 g/dL (33.0-37.0); Mean Corpuscular Hgb 32.7 pg (27.0-31.0); Mean Corpuscular Volume 96.5 fL (81.0-99.0); Mean Platelet Volume 9.9 fL (7.4-10.4); Nucleated Red Blood Cells % 0 %; Platelet Count 293 10^3/uL (130-400); Red Blood Cell Count 3.39 10^6/uL (4.20-5.40); Red Cell Dist. Width 16.3 % (11.5-14.5); White Blood Cell Count 4.8 10^3/uL (4.8-10.8)
--- NOTE | 2024-01-01 02:14 | ED.GENMED ---
History of Present Illness
General
Chief Complaint: Abdominal Pain
Source: patient
Exam Limitations: none
Time Seen by Provider: 01/01/24 01:31
Nursing documentation reviewed up to this point in time: agreed with
Travel History
Have you had any contact with someone who has COVID-19?: No
Do you have any symptoms of coronavirus? Fever > 100 degrees, chills, cough, shortness of breath, sore throat, loss of taste or smell, muscle aches, or headache?: No
History of Present Illness
History of Present Illness:
The patient is a pleasant 58-year-old female with a past medical history of breast cancer, bowel obstruction, partial nephrectomy, and hysterectomy who comes in with complaints of abdominal pain. Patient reports that the pain started about 24 hours
ago. Is associated with nausea but no vomiting. She reports it feels like obstruction but she is not sure. She reports her pain is primarily in the bellybutton area.
Past History
Past History
ED Past Medical History: Arrthythmia (Paroxysmal atrial fibrillation), Cancer (Metastatic breast cancer in remission) and Other (IBS, diverticulosis, L BBB, Ulcers)
ED Past Surgical History: Gynecological (hysterectomy,), Urological (Partial left Nephrectomy) and Other (Skin cancer removal, right mastectomy)
Social History
Tobacco: Former smoker
Alcohol: None
Drug: None
Personal:
Living: with family
Employment: Other
Family History
Family History: Other (Noncontributory sister passed from breast cancer father passed from gallbladder cancer)
Review of Systems
Review of Systems
Allergies reviewed?: Yes
All Other Systems: ROS reviewed and negative except as documented in HPI and ROS
Constitutional: Reports no symptoms
EENT: Reports no symptoms
Respiratory: Reports no symptoms
Cardiac: Reports no symptoms
ABD/GI: Reports abdominal pain and nausea
: Reports no symptoms
Musculoskeletal: Reports no symptoms
Skin: Reports no symptoms
Neurological: Reports no symptoms
Endocrine: Reports no symptoms
Hematologic/Lymphatic: Reports no symptoms
Psychiatric: Reports no symptoms
Phy Exam
Physical Exam
Physical Exam:
Physical Exam
General: Patient appears uncomfortable
Neck: supple.
Heart: s1/s2 regular rate and rhythm, no murmur. equal radial pulses.
Lungs: no acute respiratory distress. clear bilaterally
Abdomen, slightly diminished bowel sounds. Abdomen is diffusely tender without rebound or guarding. No pulsatile mass
Neuro: alert and oriented. no focal neurological deficits
Skin: no rash
Psychiatric: well kept. interactive and cooperative
Extremities: no edema. no calf tenderness. negative homans. good distal pulses
Course
Orders/Labs/Results
Orders:
Orders
01/01/24 01:24
IV Insert/Care/Rem.- Treatment PRN
01/01/24 01:43
Complete Blood Count/With Diff Urgent
Comprehensive Metabolic Panel Urgent
Lipase Urgent
01/01/24 02:13
0.9% Sodium Chloride 1000 ml [Nss] 1,000 ml IV BOLUS
HYDROmorphone [Dilaudid] 0.5 mg IV NOW STA
01/01/24 02:14
CT Abd/pelvis W Iv Cont Urgent
Comment:
Reason For Exam: periumbilical pain
Ondansetron Injectable [Zofran] 4 mg IV NOW STA
01/01/24 03:20
Morphine Sulfate 4 mg IV NOW STA
01/01/24 04:10
0.9% Sodium Chloride 500 ml [Nss] 500 ml IV ONCE
01/01/24 04:31
0.9% Sodium Chloride 1000 ml [Nss] 1,000 ml IV BOLUS
01/01/24 05:24
Admit/Transfer Patient As Directed
Co-Sign Provider:
Level of Care: Observation services
Assign to:: Medical/Surgical
Physician / Group: Jaswant
Diagnosis: SBO
01/01/24 05:25
Code Status As Directed
Resuscitation Status: Full Code
01/01/24 06:07
Ketorolac [Toradol] 15 mg IV Q6HPRN PRN
Abnormal Lab Results
01/01/24
01:43
RBC 3.39 L 10^6/uL
(4.20-5.40)
Hgb 11.1 L g/dL
(12.0-16.0)
Hct 32.7 L %
(37.0-47.0)
MCH 32.7 H pg
(27.0-31.0)
RDW 16.3 H %
(11.5-14.5)
Absolute Lymphs (auto) 0.9 L 10^3/uL
(1.2-3.4)
Lymphocytes % 17.9 L %
(20.5-51.1)
BUN 18 H mg/dl
(7-17)
Glucose 124 H mg/dl
(70-99)
01/01/24 01:43
01/01/24 01:43
Vital Signs
Initial and Last Documented VS:
Initial Vital Signs
Temp Pulse Resp BP Pulse Ox
99.3 F 99 22 147/77 97
01/01/24 01:09 01/01/24 01:09 01/01/24 01:09 01/01/24 01:09 01/01/24 01:09
Last Documented Vital Signs
Temp Pulse Resp BP Pulse Ox
99.3 F 99 22 110/59 97
01/01/24 01:09 01/01/24 01:09 01/01/24 01:09 01/01/24 05:30 01/01/24 05:30
MDM/Problems Addressed
Differential Diagnosis Includes:
Acute small bowel obstruction, acute diverticulitis, acute appendicitis, acute cholecystitis
MDM/Problems Addressed:
Patient presents with acute abdominal pain
Chronic conditions affecting care: Previous abdomnial surgery
Acute Exacerbation and/or Progression of Chronic Illness:
Patient may have acute on chronic bowel function
*Pulse Oximetry
Patient hypoxic: no
*EKG
Interpreted by ED Provider?: NA
*Spanish Tutor Interpretation
Rate: normal
Interpretation: normal
Rhythm: sinus
*Critical Care Note
Total Time (30-74mins, 75-104mins- exclusive of procedures): Not Applicable
Data Reviewed
Review of Other/Old Records Reveals: Discharge Summary (Discharge summary reviewed from October 2023 when patient was admitted for abdominal pain and found to have a small bowel obstruction)
Source: patient
Patient Management
Discussion with other providers: Hospitalist
ED Attending Note
-
Portions of this chart may have been created with voice recognition software.� Occasional wrong word or��sound alike� substitutions may have occurred due to the inherent limitations of voice recognition software.
Discharge Plan
Departure
Patient Disposition: Admit
Date of Disposition: 01/01/24
Time of Disposition: 04:23
Admit to: Med/Surg
Presentation/result/management discussed w/ accepting MD/DO: Hospitalist
Patient with high blood pressure during this ER visit?: No
Condition: Good
Covid-19: Not Applicable
Discharge Problem:
Small bowel obstruction
Interventions
Interventions:
*Risk Screen - Suicide Last Done: 01/01/24 01:09
*General Assessment Last Done: 01/01/24 01:09
*Neglect/Abuse Screening Last Done: 01/01/24 01:09
*ED COVID-19 Vaccine History Last Done: 01/01/24 01:09
VM-[id number]-[id number] Assessment Last Done: 01/01/24 01:41
[2024-01-01] MEDS: DILAUDID 0.5 MG IV ×2 (02:24→11:42)
[2024-01-01] MEDS: ZOFRAN 4 MG IV (02:25)
[2024-01-01] MEDS: NSS 1000 IV ×3 (02:26→11:43)
--- NOTE | 2024-01-01 02:42 | EDRN ---
Pt placed on 2L NC d/t desating to 88%.
[2024-01-01 02:48] LABS: ALT (SGPT) 17 U/L (0-35); AST (SGOT) 32 U/L (14-36); Albumin 4.3 g/dl (3.5-5.0); Alkaline Phosphatase 79 U/L (38-126); Blood Urea Nitrogen 18 mg/dl (7-17); Calcium 9.4 mg/dl (8.4-10.2); Carbon Dioxide 25 mmol/L (22-30); Chloride 107 mmol/L (98-107); Estimated Creatinine Clearance 85 ml/min; Glucose 124 mg/dl (70-99); Lipase 69 U/L (23-300); Potassium 4.9 mmol/L (3.5-5.1); Sodium 136 mmol/L (135-145); Total Bilirubin 0.7 mg/dl (0.2-1.3); Total Protein 7.2 g/dl (6.3-8.2); eGFR > 60.00
[2024-01-01] MEDS: MORPHINE SULFATE 4 MG IV (03:26)
[2024-01-01] MEDS: NSS 500 IV (04:11)
--- NOTE | 2024-01-01 05:28 | HPS.HSE ---
Family Physician
-
Family Physician: PHYSICIAN PRIVATE
Chief Complaint
-
Abd Pain
History of Present Illness
Patient is a 58y F with PMH significant for metastatic breast cancer, history of renal cancer and history of DVT / PE who presents to ED complaining of abdominal pain that started this evening. Patient has a prior history of recurrent SBO with
her last hospitalization 10/22 - 10/23. Patient states that she had been feeling well until 8:30 PM this evening when she developed sudden onset of abdominal pain. Patient has some nausea but has had no emesis. She presented to the ED for further
evaluation.
CT scan was done in the ED which shows RLQ transition point with associated SBO - similar to her previous CT findings.
Medical History
Past Medical History
Past Medical History: Reports Other
Additional Past Medical History:
Metastatic Breast Cancer
GERD / Hiatal Hernia
Left Kidney Oncocytoma
Migraine Headaches
PFO
CHF
Anxiety / Depression
Basal Cell Skin Cancer
ASCVD / Carotid Stenosis
History of PE and DVT
Past Surgical History: Reports Other
Additional Past Surgical History:
Left Partial Nephrectomy
Right Mastectomy / Axillary Dissection
Skin Cancer Excisions
EFREN / BSO
Social History
Tobacco: Former Smoker (Quit smoking 20 years ago. Approx 10 pack years total use.)
Alcohol: None
Personal:
Living: With Family
Family History
Family History: Not pertinent
Allergies / Home Medications
Allergies reflects when Allergies were last updated in [email or web address].
Home Medications with original date entered in [email or web address]
Allergy/Medication List:
Allergies
Allergy/AdvReac Type Severity Reaction Status Date / Time
No Known Allergies Allergy Verified 01/01/24 01:07
Home Medications
letrozole 2.5 mg tablet 2.5 mg PO DAILY@1200 Cancer 06/01/16
palbociclib 100 mg capsule (Ibrance) 100 mg PO DAILY Cancer 03/07/18
cholecalciferol (vitamin D3) 50 mcg (2,000 unit) tablet 2,000 units PO DAILY Supplement 11/18/19
omeprazole magnesium 20 mg tablet,delayed release (Prilosec OTC) 20 mg PO DAILY Gastrointestinal issue 04/29/20
apixaban 5 mg tablet (Eliquis) 5 mg PO BID #60 tabs 06/18/20
ascorbic acid (vitamin C) 500 mg tablet (Vitamin C) 500 mg PO DAILY 12/16/22
carvedilol 12.5 mg tablet (Coreg) 12.5 mg PO BID 12/16/22
dapagliflozin propanediol 10 mg tablet (Farxiga) 10 mg PO DAILY 12/16/22
ezetimibe 10 mg tablet (Zetia) 10 mg PO Q48H 12/16/22
sacubitril 97 mg-valsartan 103 mg tablet (Entresto) 1 tab PO BID 12/16/22
spironolactone 25 mg tablet 12.5 mg PO DAILY 12/16/22
Review of Systems
-
History Source: Patient
A 12 point ROS was completed and negative except as noted: Yes
Constitutional: Denies Fever or Chills
Respiratory: Denies Cough or Trouble Breathing
Cardiac: Denies Chest Pain or Palpitations
Abdomen/GI: Reports Abdominal Pain and Nausea; Denies Vomiting, Diarrhea or Constipated
: Denies Dysuria or Frequency
Neurological: Denies Dizzy or Headache
Psych: Denies Depression or Anxiety
Physical Exam
Vital Signs
Vital Signs
Temp Pulse Resp BP Pulse Ox
99.3 F 99 22 83/44 98
01/01/24 01:09 01/01/24 01:09 01/01/24 01:09 01/01/24 04:14 01/01/24 04:14
Physical Exam
General: Other (58y F in mild distress due to abdominal pain.)
HEENT: Moist mucous membranes
Respiratory: Clear; No Wheezes, Rales or Rhonchi
Cardiac: S1/S2, Regular Rhythm and Murmur (II/ SOCORRO)
GI: Soft, Non Distended, Normal Bowel Sounds and Other (Mildly tender in the mid-abdomen. No rebound / guarding. Pos BS.)
Musculoskeletal: No Clubbing, No Cyanosis and No Edema
Neuro: AO x 3
Laboratory Results
-
01/01/24:
01/01/24:43
Laboratory Results
Total Bilirubin 0.7 mg/dl (0.2-1.3) 01/01/24:
AST 32 U/L (14-36) 01/01/24:43
ALT 17 U/L (0-35) 01/01/24:43
Alkaline Phosphatase 79 U/L (38-126) 01/01/24:
Lipase 69 U/L (23-300) 01/01/24:43
Impression/Plan
-
A/P: Patient is a 58y F with PMH significant for metastatic breast cancer and prior SBO who presents to ED complaining of abdominal pain starting this evening.
SBO
- Admit for further evaluation and treatment.
- NPO, pain control, supportive care, etc.
- Consider NG decompression if symptoms worsen or patient develops emesis, etc.
- Consider Surgery evaluation if symptoms do not resolve quickly with supportive measures alone.
Metastatic Breast Cancer
- Stable. Continue current med regimen including Letrozole and Ibrance.
- Scheduled for MRI for follow-up of recently noted liver changes.
- Follow-up with usual Oncologist as an outpatient.
Chronic HFrEF
- Stable. No evidence of significant volume overload on exam.
- Follow I/Os, daily weights, etc.
- Hold spironolactone / Farxiga until patient tolerating POs.
History of DVT / PE
DVT Prophylaxis
- Continue Eliquis.
GERD / Hiatal Hernia
- Stable. Continue daily PPI.
Code Status: Full
[2024-01-01] MEDS: TORADOL 15 MG IV (06:15)
--- NOTE | 2024-01-01 10:06 | W.PN.UPDATE ---
Addendum entered and electronically signed by Westley Ivey MD 01/01/24 11:03:
CM contacted that patient having repeat abd pain 04/22
will cancel the discharge
order for IVF/pain meds released for OUTSIDE CUTTER to use
continue on CL diet.
Original Note:
Update Note
Progress Note Update
Patient requested to be discharged home as clinically feeling better
Denies ongoing abdominal pain nausea vomiting
Bowel sound present, passing gas.
Tolerating clear liquid breakfast.
Patient stated of having gone through multiple episodes of ileus/small bowel obstruction and planning to stay on liquid diet for next day or 2 followed by increasing to mechanical soft and low residue diet.
Patient will be discharged home
--- NOTE | 2024-01-01 11:02 | CM ---
CM reviewed medical records. CM met with patient in room. OBS letter signed. Patient is independent and lives with spouse. Patient is active with her PCP.
Patient was due to discharge, but complained to this CM of 8/10 abdominal pain. CM updated bedside RN and hospitalist.
PLAN: home no needs.
[2024-01-01] MEDS: FEMARA 2.5 MG PO (13:05)
[2024-01-01] MEDS: COREG 12.5 MG PO (13:06)
[2024-01-01] MEDS: ENTRESTO 97 MG/103 MG 1 TAB PO ×2 (13:06→20:57)
[2024-01-01] MEDS: PROTONIX IV 40 MG IV (13:07)
[2024-01-01] MEDS: NSS (PRESERVATIVE FREE) 10 ML IV (13:07)
[2024-01-01] MEDS: COREG PO (21:01)
[2024-01-02] MEDS: NSS 1000 IV (02:23)
[2024-01-02 06:00] VITALS: BMI 44.4
[2024-01-02 06:49] LABS: Hematocrit 30.4 % (37.0-47.0); Mean Corp Hgb Conc. 32.9 g/dL (33.0-37.0); Mean Corpuscular Hgb 32.5 pg (27.0-31.0); Mean Corpuscular Volume 98.7 fL (81.0-99.0); Mean Platelet Volume 9.9 fL (7.4-10.4); Platelet Count 262 10^3/uL (130-400); Red Blood Cell Count 3.08 10^6/uL (4.20-5.40); Red Cell Dist. Width 16.5 % (11.5-14.5)
[2024-01-02 07:22] LABS: Blood Urea Nitrogen 8 mg/dl (7-17); Calcium 8.5 mg/dl (8.4-10.2); Carbon Dioxide 21 mmol/L (22-30); Chloride 112 mmol/L (98-107); Estimated Creatinine Clearance > 125 ml/min; Glucose 98 mg/dl (70-99); Potassium 4.3 mmol/L (3.5-5.1); Sodium 136 mmol/L (135-145); eGFR > 60.00
[2024-01-02 07:51] VITALS: BP 92/51
[2024-01-02] MEDS: COREG 12.5 MG PO (08:55)
[2024-01-02] MEDS: ENTRESTO 97 MG/103 MG 1 TAB PO (08:57)
[2024-01-02] MEDS: PROTONIX IV 40 MG IV (08:57)
[2024-01-02] MEDS: NSS (PRESERVATIVE FREE) 10 ML IV (08:57)
--- NOTE | 2024-01-02 11:35 | W.PN.HOSP.TC ---
Addendum entered and electronically signed by Anjum Kessler MD 01/04/24 15:47:
[id number]
Original Note:
Today's Communication/Plan
-
dc today if tolerating lrd
close surgery, pcp f/u.
Assessment / Plan
Assessment / Plan
General: NAD
HEENT: Moist mucous membranes
Respiratory: Clear; No Wheezes, Rales or Rhonchi
Cardiac: S1/S2, Regular Rhythm and Murmur (II/ SOCORRO)
GI: Soft, Non Distended, Normal Bowel Sounds; Non tender; No rebound / guarding. Pos BS.)
Musculoskeletal: No Clubbing, No Cyanosis and No Edema
Neuro: AO x 3
A/P: Patient is a 58y F with PMH significant for metastatic breast cancer and prior SBO who presents to ED complaining of abdominal pain starting this evening.
SBO
- Admit for further evaluation and treatment.
- Patient passing gas, tolerating CLD; If can tolerate LRD - patient desires to be discharged without seeing surgery and understands risks/benefits. Patient non toxic, non distended. will see outpatient surgery
- symptoms resolved
Metastatic Breast Cancer
- Stable. Continue current med regimen including Letrozole and Ibrance.
- Scheduled for MRI for follow-up of recently noted liver changes.
- Follow-up with usual Oncologist as an outpatient.
Chronic HFrEF
- Stable. No evidence of significant volume overload on exam.
- Follow I/Os, daily weights, etc.
- Hold spironolactone / Farxiga until patient tolerating POs.
History of DVT / PE
DVT Prophylaxis
- Continue Eliquis.
GERD / Hiatal Hernia
- Stable. Continue daily PPI.
Code Status: Full
More than 30 minutes spent in discharge including
Final examination of the patient
Summarizing hospital stay
Instructions for continuing care to all relevant caregivers
Preparation of discharge records, prescriptions, and referral forms
Total time spent (35 in minutes):
Anticipated Discharge: Today
Subjective/Interval History
-
Date of Service: January 02, 2024
passing gas on cld. desires to advance diet and dc
Objective Data
-
Labs:
Laboratory Results
01/02/24
06:28
WBC 3.0 L
Hgb 10.0 L
Hct 30.4 L
Plt Count 262
Sodium 136
Potassium 4.3
Chloride 112 H
Carbon Dioxide 21 L
BUN 8
Creatinine 0.6
Glucose 98
Calcium 8.5
Vital Signs:
Vital Signs
Temp Pulse Resp BP Pulse Ox
98.2 F 84 16 92/51 95
01/02/24 07:51 01/02/24 07:51 01/02/24 07:51 01/02/24 07:51 01/02/24 07:51
I&O
01/01/24 01/02/24 01/03/24
06:59 06:59 06:59
Intake Total 990 / 990
Balance 990 / 990
Review of Systems
-
History Source: Patient
All other systems: Reviewed and negative
Data Reviewed
-
CT Scan: Image personally visualized and interpreted and Report Reviewed by me
Labs: Labs Reviewed by me
--- NOTE | 2024-01-02 11:39 | W.DS.TRANS ---
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
-
Discharge Instructions:
Sleep Apnea Risk Low
Discharge Diagnosis/Procedures Mild ileus/sbo
Diet Other diet
Additional Diets low residue diet
Activity As tolerated
Driving Restrictions As prior to admission
Bathing Restrictions OK to Shower
Blood Work bmp in 1 week with pcp
Instructions: Small Bowel Obstruction (DC)
Stand-Alone Forms:
Changes to Home Medications: Yes
Discharge Medications:
DC Medications w/original date entered in [facility]
letrozole 2.5 mg tablet 2.5 mg PO DAILY@1200 Cancer 06/01/16
palbociclib 100 mg capsule (Ibrance) 100 mg PO UD Cancer 03/07/18
cholecalciferol (vitamin D3) 50 mcg (2,000 unit) tablet 2,000 units PO DAILY Supplement 11/18/19
omeprazole magnesium 20 mg tablet,delayed release (Prilosec OTC) 20 mg PO DAILY Gastrointestinal issue 04/29/20
ascorbic acid (vitamin C) 500 mg tablet (Vitamin C) 500 mg PO DAILY Supplement 12/16/22
carvedilol 12.5 mg tablet (Coreg) 12.5 mg PO BID Blood Pressure 12/16/22
dapagliflozin propanediol 10 mg tablet (Farxiga) 10 mg PO DAILY Diabetes 12/16/22
ezetimibe 10 mg tablet (Zetia) 10 mg PO DAILY High Cholesterol 12/16/22
sacubitril 97 mg-valsartan 103 mg tablet (Entresto) 1 tab PO BID Blood Pressure 12/16/22
spironolactone 25 mg tablet 12.5 mg PO DAILY Fluid Retention/Swelling 12/16/22
polyethylene glycol 3350 17 gram oral powder packet (Miralax) 17 g PO DAILY #30 ea 01/01/24
apixaban 5 mg tablet (Eliquis) 5 mg PO BID Blood Clot Prevention/Tx 01/02/24
Home Medication Changes
polyethylene glycol 3350 17 gram oral powder packet (Miralax) 17 g PO DAILY #30 ea 01/01/24
Pending Results: No
[2024-01-02] MEDS: FEMARA 2.5 MG PO (11:58)
--- NOTE | 2024-01-02 12:09 | CM ---
Pt for d/c today
Has ride home with
CM consulted re advance directive
Given information packet on Advance Directives
Plan - home no needs anticipated
[2024-01-02 12:25] VITALS: BP 107/67
== END 2024-01-02 12:33 | disposition home or self-care (01) ==
LOC: 3 WEST ACU 05:38
PROVIDERS: ADMITTING PHYSICIAN Hospitalist; ATTENDING PHYSICIAN Internal Medicine; EMERGENCY PHYSICIAN Emergency Medicine
DX: K56.600 Partial intestinal obstruction, unspecified as to cause (principal); K56.7 Ileus, unspecified; R10.9 Unspecified abdominal pain; K58.9 Irritable bowel syndrome, unspecified; I48.0 Paroxysmal atrial fibrillation; K44.9 Diaphragmatic hernia without obstruction or gangrene; I50.22 Chronic systolic (congestive) heart failure; K21.9 Gastro-esophageal reflux disease without esophagitis; I25.10 Atherosclerotic heart disease of native coronary artery without angina pectoris; Q21.12 Patent foramen ovale; F41.9 Anxiety disorder, unspecified; F32.A Depression, unspecified; Z79.811 Long term (current) use of aromatase inhibitors; Z79.01 Long term (current) use of anticoagulants; Z85.3 Personal history of malignant neoplasm of breast; Z90.5 Acquired absence of kidney; Z79.84 Long term (current) use of oral hypoglycemic drugs; Z86.711 Personal history of pulmonary embolism; Z87.891 Personal history of nicotine dependence; Z90.11 Acquired absence of right breast and nipple; Z90.710 Acquired absence of both cervix and uterus; Z85.828 Personal history of other malignant neoplasm of skin; Z80.0 Family history of malignant neoplasm of digestive organs; Z80.3 Family history of malignant neoplasm of breast; Z86.718 Personal history of other venous thrombosis and embolism; Z85.528 Personal history of other malignant neoplasm of kidney
CPT/HCPCS: 74177; 80048; 80053; 83690; 85025; 85027; 96361; 96374; 96375; 99285; G0378; Q9967

== ENCOUNTER → 2024-01-28 11:02 | Outpatient (REF) | payer OTHER, SELFPAY | LOC: PAVMRI 11:02 | PROVIDERS: ATTENDING PHYSICIAN Internal Medicine Medical Oncology; FAMILY PHYSICIAN Family Medicine | DX: C50.919 Malignant neoplasm of unspecified site of unspecified female breast (principal) | CPT/HCPCS: 74183; A9575 ==

== ENCOUNTER → 2024-02-04 08:28 | Outpatient (REF) | payer OTHER, SELFPAY | LOC: RAD 08:28 | PROVIDERS: ATTENDING PHYSICIAN Internal Medicine Medical Oncology; FAMILY PHYSICIAN Family Medicine | DX: C50.919 Malignant neoplasm of unspecified site of unspecified female breast (principal) | CPT/HCPCS: 71250; 78306; A9503 ==

== ENCOUNTER 2024-04-30 23:55 | Observation (INO) | payer OTHER, SELFPAY ==
[2024-04-30 18:59] VITALS: BMI 44.6
[2024-04-30 19:03] VITALS: BP 152/90
[2024-04-30] MEDS: ZOFRAN 4 MG IV (19:16)
[2024-04-30 19:22] LABS: Hematocrit 34.6 % (37.0-47.0); Hemoglobin 11.8 g/dL (12.0-16.0); Mean Corp Hgb Conc. 34.1 g/dL (33.0-37.0); Mean Corpuscular Volume 96.6 fL (81.0-99.0); Mean Platelet Volume 9.6 fL (7.4-10.4); Platelet Count 258 10^3/uL (130-400); Red Blood Cell Count 3.58 10^6/uL (4.20-5.40); Red Cell Dist. Width 16.4 % (11.5-14.5); White Blood Cell Count 4.6 10^3/uL (4.8-10.8)
[2024-04-30 19:32] LABS: Lactic Acid 1.2 mmol/L (0.7-2.0)
[2024-04-30 19:35] LABS: ALT (SGPT) 16 U/L (0-35); AST (SGOT) 24 U/L (14-36); Albumin 4.5 g/dl (3.5-5.0); Alkaline Phosphatase 85 U/L (38-126); Blood Urea Nitrogen 14 mg/dl (7-17); Calcium 9.8 mg/dl (8.4-10.2); Carbon Dioxide 24 mmol/L (22-30); Chloride 104 mmol/L (98-107); Glucose 114 mg/dl (70-99); Lipase 69 U/L (23-300); Potassium 4.3 mmol/L (3.5-5.1); Sodium 137 mmol/L (135-145); Total Bilirubin 0.6 mg/dl (0.2-1.3); Total Protein 7.1 g/dl (6.3-8.2); eGFR > 60.00
[2024-04-30 19:40] LABS: % Basophils 1.1 % (0-2); % Eosinophils 0.9 % (0-6); % Immature Granulocytes 0.4 % (0-0.5); % Lymphocytes 29.9 % (20.5-51.1); % Monocytes 9.3 % (1.7-9.3); % Neutrophils 58.4 % (42.2-75.2); Absolute Basophils 0.1 10^3/uL (0-0.2); Absolute Lymphocytes 1.4 10^3/uL (1.2-3.4); Absolute Monocytes 0.4 10^3/uL (0.1-0.6); Absolute Neutrophils 2.7 10^3/uL (1.4-6.5); Nucleated Red Blood Cells % 0 %
[2024-04-30] MEDS: MORPHINE SULFATE 4 MG IV (20:12)
[2024-04-30 20:45] VITALS: BP 110/61
[2024-04-30 21:00] VITALS: BP 106/60
--- NOTE | 2024-04-30 21:24 | ED.GENMED ---
History of Present Illness
General
Chief Complaint: Abdominal Pain
Source: patient
Exam Limitations: none
Time Seen by Provider: 04/30/24 19:38
History of Present Illness
History of Present Illness:
58-year-old female presents with nausea, abdominal pain and abdominal distention. Patient states she has a history of bowel obstructions and 'inflammation of the ileum'. Patient states she has been considered for surgery. Symptoms began earlier
this afternoon. No chest pain. No fevers. No hematochezia or melena.
Past History
Past History
ED Past Medical History: Arrthythmia (Paroxysmal atrial fibrillation), Cancer (Metastatic breast cancer in remission) and Other (IBS, diverticulosis, L BBB, Ulcers, small bowel obstruction)
ED Past Surgical History: Gynecological (hysterectomy,), Urological (Partial left Nephrectomy) and Other (Skin cancer removal, right mastectomy)
Social History
Tobacco: Former smoker
Alcohol: None
Drug: None
Personal:
Living: with family
Employment: Other
Family History
Family History: Other (Noncontributory sister passed from breast cancer father passed from gallbladder cancer)
Phy Exam
Physical Exam
Physical Exam:
CONSTITUTIONAL Patient alert and oriented to person, place and time. Well-appearing. Vital signs reviewed.
HEAD atraumatic, normocephalic.
EYES eyelids normal to inspection, Pupils equally round and reactive to light, Extraocular muscles intact, Conjunctiva normal, Sclera normal.
NECK normal range of motion, Trachea midline, no jugular venous distention.
RESPIRATORY CHEST No respiratory distress noted, Chest expansion equal,
ABDOMEN mild gross distention of the abdomen. Normoactive bowel sounds. Moderate periumbilical tenderness
BACK normal inspection, no obvious deformities
UPPER EXTREMITY range of motion normal, Motor strength normal, no cyanosis, no edema.
LOWER EXTREMITY range of motion normal, Motor strength normal, no cyanosis, no edema.
NEURO Speech normal, No focal motor deficits, [place] coma scale 15, Memory normal, Cranial Nerves intact to screening exam.
SKIN skin warm, dry, and normal in color.
PSYCHIATRIC patient oriented to person place and time, Normal affect.
Course
Orders/Labs/Results
Orders:
Orders
04/30/24 19:13
CBC/With Diff [Complete Blood Count/With Diff] Urgent
CMP [Comprehensive Metabolic Panel] Urgent
Lactate Level [Lactic Acid] Urgent
Lipase Urgent
04/30/24 19:15
Ondansetron Injectable [Zofran] 4 mg .ROUTE .STK-MED ONE
04/30/24 19:16
Ondansetron Injectable [Zofran] 4 mg IV NOW STA
04/30/24 19:52
Morphine Sulfate 4 mg IV NOW STA
04/30/24 19:53
CT Abd/pelvis W Iv Cont Urgent
Comment:
Reason For Exam: periumbilical pain
04/30/24 22:00
Flush (0.9% Sodium Chloride) [Flush (Nss)] See Dose Instructions IV PER PROTOCOL
04/30/24 22:04
NSS 1000mL Bolus WIDE OPEN 0.9% Sodium Chloride 1000 ml [Nss] 1,000 ml IV BOLUS
Abnormal Lab Results
04/30/24
19:13
WBC 4.6 L 10^3/uL
(4.8-10.8)
RBC 3.58 L 10^6/uL
(4.20-5.40)
Hgb 11.8 L g/dL
(12.0-16.0)
Hct 34.6 L %
(37.0-47.0)
MCH 33.0 H pg
(27.0-31.0)
RDW 16.4 H %
(11.5-14.5)
Glucose 114 H mg/dl
(70-99)
04/30/24 19:13
04/30/24 19:13
Vital Signs
Initial and Last Documented VS:
Initial Vital Signs
Temp Pulse Resp BP Pulse Ox
98.1 F 99 22 152/90 98
04/30/24 19:03 04/30/24 19:03 04/30/24 19:03 04/30/24 19:03 04/30/24 19:03
Last Documented Vital Signs
Temp Pulse Resp BP Pulse Ox
98.1 F 99 22 106/60 96
04/30/24 19:03 04/30/24 19:03 04/30/24 19:03 04/30/24 21:00 04/30/24 21:15
MDM/Problems Addressed
MDM/Problems Addressed:
Partial small bowel obstruction, internal hernia
*Radiology
Radiology exam reviewed: preliminary read by ED provider (No free air noted) and radiology read reviewed
*Pulse Oximetry
Patient hypoxic: no
*Critical Care Note
Total Time (30-74mins, 75-104mins- exclusive of procedures): Not Applicable
Data Reviewed
Review of Other/Old Records Reveals: Discharge Summary (Prior discharge summary reviewed)
Source: patient and spouse
Further Testing Considered But Not Given:
Considered NG tube the patient feels a bit better.
Patient Management
Discussion with other providers: Hospitalist
Escalation/DeEscalation of care consider admission/obs:
58-year-old female presents with abdominal pain distention. This time appears to be partial small bowel obstruction. Given her history, admit. Stable
ED Attending Note
-
Portions of this chart may have been created with voice recognition software.� Occasional wrong word or��sound alike� substitutions may have occurred due to the inherent limitations of voice recognition software.
Discharge Plan
Departure
Patient Disposition: Admit
Date of Disposition: 04/30/24
Time of Disposition: 21:24
Admit to: Med/Surg
Presentation/result/management discussed w/ accepting MD/DO: Hospitalist
Discharge Problem:
Partial small bowel obstruction
Prescriptions:
No Action
letrozole 2.5 MG tablet
2.5 mg PO DAILY@1200
Ibrance 100 MG capsule
100 mg PO UD
Patient Comments:
12/16/22--21 days on; 7 days off, PATIENT WILL START HER 7 DAYS OFF ON 12/17/22
Rx Instructions:
take for 21 days then off for 7 days
cholecalciferol (vitamin D3) 2,000 UNITS tablet
2,000 units PO DAILY
omeprazole magnesium [Prilosec OTC] 20 MG tablet,delayed release (DR/EC)
20 mg PO DAILY
carvedilol [Coreg] 12.5 mg Tablet
12.5 mg PO BID
spironolactone 25 mg Tablet
12.5 mg PO DAILY
ascorbic acid (vitamin C) [Vitamin C] 500 mg Tablet
500 mg PO DAILY
ezetimibe [Zetia] 10 mg Tablet
10 mg PO DAILY
dapagliflozin propanediol [Farxiga] 10 mg tablet
10 mg PO DAILY
Entresto 97-103 mg Tablet
1 tab PO BID
polyethylene glycol 3350 [Miralax] 17 gram powder in packet
17 g PO DAILY Qty: 30 2RF
Eliquis 5 MG tablet
5 mg PO BID
Referrals:
Pedro Hartmann DO [Family Provider] -
Interventions
Interventions:
*Risk Screen - Suicide Last Done: 04/30/24 20:39
*General Assessment Last Done: 04/30/24 20:39
*Neglect/Abuse Screening Last Done: 04/30/24 20:39
*ED COVID-19 Vaccine History Last Done: 04/30/24 20:39
KD-Xsvksi-[id number] Assessment Last Done: 04/30/24 20:39
Discharge Date and Time
Print Language: ALBANIAN
[2024-04-30 22:00] VITALS: BP 106/62
[2024-04-30] MEDS: NSS 1000 IV (22:22)
[2024-04-30 23:00] VITALS: BP 104/56
--- NOTE | 2024-04-30 23:15 | HPS.HSE ---
Family Physician
-
Family Physician: Pedro Hartmann
Chief Complaint
-
n/v, abdominal pain
History of Present Illness
The patient is a 58 yo woman with PMH significant for metastatic breast cancer, history of renal cancer and history of DVT / PE, multiple admissions for SBO, recent admission 12/2023 here for mild ileus and SBO, who presents due to mid abdominal pain
that started this afternoon around 1 pm, associated with nausea and dry heaving. Prior to this, she was feeling well. She is followed by Oncology outpatient for liver lesions suspected to be metastatic lesions from breast cancer, with serial
imaging, not on active chemotherapy. She said she just passed gas this evening. No bowel movements, and has had some easing up of abdominal pain since receiving pain meds and anti-emetics in the ED. No fever, no CP, no SOB, no CARMONA, no active n/v, no
diarrhea, no bleeding.
Medical History
Past Medical History
Past Medical History: Reports Other
Additional Past Medical History:
Metastatic Breast Cancer
GERD / Hiatal Hernia
Left Kidney Oncocytoma
Migraine Headaches
PFO
CHF
Anxiety / Depression
Basal Cell Skin Cancer
ASCVD / Carotid Stenosis
History of PE and DVT
Past Surgical History: Reports Other
Additional Past Surgical History:
Left Partial Nephrectomy
Right Mastectomy / Axillary Dissection
Skin Cancer Excisions
EFREN / BSO
Social History
Tobacco: Former Smoker (Quit smoking 20 years ago. Approx 10 pack years total use.)
Alcohol: None
Personal:
Living: With Family
Family History
Family History: Not pertinent
Allergies / Home Medications
Allergies reflects when Allergies were last updated in [facility].
Home Medications with original date entered in [facility]
Allergy/Medication List:
Allergies
Allergy/AdvReac Type Severity Reaction Status Date / Time
No Known Allergies Allergy Verified 04/30/24 19:06
Home Medications
letrozole 2.5 mg tablet 2.5 mg PO DAILY@1200 Cancer 06/01/16
palbociclib 100 mg capsule (Ibrance) 100 mg PO UD Cancer 03/07/18
cholecalciferol (vitamin D3) 50 mcg (2,000 unit) tablet 2,000 units PO DAILY Supplement 11/18/19
omeprazole magnesium 20 mg tablet,delayed release (Prilosec OTC) 20 mg PO DAILY Gastrointestinal issue 04/29/20
ascorbic acid (vitamin C) 500 mg tablet (Vitamin C) 500 mg PO DAILY Supplement 12/16/22
carvedilol 12.5 mg tablet (Coreg) 12.5 mg PO BID Blood Pressure 12/16/22
dapagliflozin propanediol 10 mg tablet (Farxiga) 10 mg PO DAILY Diabetes 12/16/22
ezetimibe 10 mg tablet (Zetia) 10 mg PO DAILY High Cholesterol 12/16/22
sacubitril 97 mg-valsartan 103 mg tablet (Entresto) 1 tab PO BID Blood Pressure 12/16/22
spironolactone 25 mg tablet 12.5 mg PO DAILY Fluid Retention/Swelling 12/16/22
apixaban 5 mg tablet (Eliquis) 5 mg PO BID Blood Clot Prevention/Tx 01/02/24
Review of Systems
-
A 12 point ROS was completed and negative except as noted: Yes
Physical Exam
Vital Signs
Vital Signs
Temp Pulse Resp BP Pulse Ox
98.1 F 99 22 106/60 96
04/30/24 19:03 04/30/24 19:03 04/30/24 19:03 04/30/24 21:00 04/30/24 21:15
Physical Exam
General: Well Developed, Well Nourished, No Apparent Distress, Comfortable and Conversant
HEENT: NormoCephalic, Anicteric and Moist mucous membranes
Respiratory: Clear
Cardiac: S1/S2 and Regular Rhythm
GI: Soft, Tender (mild tenderness mid abdominal region, without peritoneal signs) and Other (decreased bowel sounds)
Musculoskeletal: No Clubbing, No Cyanosis and No Edema
Skin: Warm and Dry
Neuro: AO x 3 and No Motor Deficits
Laboratory Results
-
04/30/24 19:
04/30/24:
Laboratory Results
Lactic Acid 1.2 mmol/L (0.7-2.0) 04/30/24:
Total Bilirubin 0.6 mg/dl (0.2-1.3) 04/30/24:
AST 24 U/L (14-36) 04/30/24:
ALT 16 U/L (0-35) 04/30/24:
Alkaline Phosphatase 85 U/L (38-126) 04/30/24:
Lipase 69 U/L (23-300) 04/30/24:
Data Reviewed
-
CT Scan: Report Reviewed by me
Impression/Plan
-
IMPRESSION:The patient is a 58 yo woman with PMH significant for metastatic breast cancer, history of renal cancer s/p partial nephrectomy, and history of DVT / PE, multiple admissions for SBO, recent admission 12/2023 here for mild ileus and SBO,
who presents due to mid abdominal pain that started this afternoon around 1 pm, associated with nausea and dry heaving. Prior to this, she was feeling well. She is followed by Oncology outpatient for liver lesions suspected to be metastatic lesions
from breast cancer (followed for over 20 years) with serial imaging, not on active chemotherapy. She said she passed gas this evening. No bowel movements, and has had some easing up of abdominal pain since receiving pain meds and anti-emetics in the
ED. No fever, no CP, no SOB, no CARMONA, no active n/v, no diarrhea, no bleeding.
#Partial SBO
-admit obs status, close clinical monitoring
-CT abdomen and pelvis: 1. Partial distal small bowel obstruction with likely a few low-grade transition points possibly in the setting of internal hernia(s). 2. Slight interval progression of scattered small hypoattenuating hepatic lesions,
suspicious for metastatic disease.
-Surgery consultation placed
-cont IVF
-IV pain meds prn, IV anti-emetics prn
-bowel rest overnight
-NG tube if vomiting
-repeat labs in am
#Known liver metastatic lesions
-follows OP with Oncology
Chronic medical conditions:
Metastatic Breast Cancer
GERD / Hiatal Hernia
Left Kidney Oncocytoma
Migraine Headaches
PFO
CHF
Anxiety / Depression
Basal Cell Skin Cancer
ASCVD / Carotid Stenosis
History of PE and DVT
DVT proph - PCDs
Full code
[2024-05-01 00:24] VITALS: BP 102/55
--- NOTE | 2024-05-01 02:00 | PTCARENOTE ---
Pt arrived from ED via stretcher, ambulated independently to bed. no issues. aaox3, cooperative. denies nausea. c/o mild abd pain, states 'It's better than when I came in. I passed from gas downstairs.' Oriented to room. call calvert within reach.
[2024-05-01 02:10] VITALS: BP 119/50
[2024-05-01 02:11] VITALS: BMI 43.7
[2024-05-01 02:21] VITALS: BMI 43.7
[2024-05-01] MEDS: NSS 1000 IV (02:23)
--- NOTE | 2024-05-01 06:37 | W.PN.HOSP.TC ---
Today's Communication/Plan
-
discharge
Assessment / Plan
Assessment / Plan
Physical Exam
General: Well Developed, Well Nourished, No Apparent Distress, Comfortable and Conversant
HEENT: NormoCephalic, Anicteric and Moist mucous membranes
Respiratory: Clear
Cardiac: S1/S2 and Regular Rhythm
GI: Soft nontender bowel sounds present
Musculoskeletal: No Clubbing, No Cyanosis and No Edema
Skin: Warm and Dry
Neuro: AO x 3 and No Motor Deficits
IMPRESSION:The patient is a 58 yo woman with PMH significant for metastatic breast cancer, history of renal cancer s/p partial nephrectomy, and history of DVT / PE, multiple admissions for SBO, recent admission 12/2023 here for mild ileus and SBO,
who presents due to mid abdominal pain that started this afternoon around 1 pm, associated with nausea and dry heaving. Prior to this, she was feeling well. She is followed by Oncology outpatient for liver lesions suspected to be metastatic lesions
from breast cancer (followed for over 20 years) with serial imaging, not on active chemotherapy. She said she passed gas this evening. No bowel movements, and has had some easing up of abdominal pain since receiving pain meds and anti-emetics in the
ED. No fever, no CP, no SOB, no CARMONA, no active n/v, no diarrhea, no bleeding.
#Partial SBO
-CT abdomen and pelvis: 1. Partial distal small bowel obstruction with likely a few low-grade transition points possibly in the setting of internal hernia(s). 2. Slight interval progression of scattered small hypoattenuating hepatic lesions,
suspicious for metastatic disease.
-Surgery consultation appreciated
-Pain since resolved overnight after passing gas, endorses flatus, tolerated low residue diet breakfast
#Known liver metastatic lesions
-follows OP with Oncology
Chronic medical conditions:
Metastatic Breast Cancer
GERD / Hiatal Hernia
Left Kidney Oncocytoma
Migraine Headaches
PFO
CHF
Anxiety / Depression
Basal Cell Skin Cancer
ASCVD / Carotid Stenosis
History of PE and DVT
DVT proph - PCDs
Full code
Medically stable for discharge home with outpatient follow up recommendations.
Discussed with patient and patient's Riccardo at bedside.
Total Time Preparing Discharge __40 minutes including examination of the patient, summary of the hospital stay, instructions for continuing care to all relevant caregivers; and preparation of discharge records, prescriptions, and referral
forms if necessary.
Anticipated Discharge: Today
Subjective/Interval History
-
Date of Service: May 01, 2024
Reports feeling well. Tolerated low residue diet this morning. Denies current abd pain. Endorses flatus. Denies new acute issues. Eager to go home. Riccardo present during evaluation.
Objective Data
-
Labs:
Laboratory Results
04/30/24 05/01/24
19:13 06:00
WBC 4.6 L Pending
Hgb 11.8 L Pending
Hct 34.6 L Pending
Plt Count 258 Pending
Sodium 137 Pending
Potassium 4.3 Pending
Chloride 104 Pending
Carbon Dioxide 24 Pending
BUN 14 Pending
Creatinine 1.0 Pending
Glucose 114 H Pending
Calcium 9.8 Pending
Total Bilirubin 0.6
AST 24
ALT 16
Alkaline Phosphatase 85
Vital Signs:
Vital Signs
Temp Pulse Resp BP Pulse Ox
98.2 F 80 16 119/50 94
05/01/24 02:10 05/01/24 02:10 05/01/24 02:10 05/01/24 02:10 05/01/24 03:11
[2024-05-01 07:50] VITALS: BP 106/48
[2024-05-01] MEDS: COREG 12.5 MG PO (08:13)
[2024-05-01] MEDS: ALDACTONE 12.5 MG PO (08:13)
[2024-05-01] MEDS: VITAMIN D3 (cholecalciferol) 50 MCG PO (08:14)
[2024-05-01] MEDS: ENTRESTO 97 MG/103 MG 1 TAB PO (08:14)
[2024-05-01] MEDS: PROTONIX 40 MG PO (08:14)
[2024-05-01] MEDS: ELIQUIS 5 MG PO (08:14)
[2024-05-01] MEDS: FARXIGA 10 MG PO (08:14)
[2024-05-01] MEDS: VITAMIN C 500 MG PO (08:14)
--- NOTE | 2024-05-01 09:26 | CON.GS ---
Medical History
-
Chief Complaint: abdominal pain
History of Present Illness:
58 yo female with a history of dvt/pe on Eliquis, breast cancer dx in 2002 with mets to spine tx with XRT in 2014 and recent possible mets to liver although not confirmed with biopsy on Ibrance and letrozole, partial left nephrectomy with path
benign, EFREN/BSO in 2004 and history of recurrent sbo's which she notes began after her nephrectomy with pain usually near the umbilicus, last admitted in december for the same. She notes that she developed this pain again yesterday afternoon with
nausea and dry heaving. She presented through the ED for evaluation and was admitted for management. Since presentation, she has had interim resolution of pain. No further nausea and vomiting. On exam, the abdomen is not tender or distended.
Past Medical History
Past Medical History: Cancer (Basal cell of skin: Mohs. Breast: dx 2002 with spinal mets in 2014 for which she had xrt, new ?liver mets but too small to bx (follows at [facility])), Hypercholesterolemia and Other (migraines, obesity, recurrent SBO's,
left BBB, anxiety)
Past Surgical History: Gynecological (EFREN/BSO 2004), Urological (robotic partial left nephrectomy (benign mass) 2014) and Other (Mohs for basal cell ca)
Social History
Tobacco: Non-Smoker
Alcohol: None
Family History
Family History: Reviewed & Not Pertinent
Allergies / Home Medications
Allergy/AdvReac Type Severity Reaction Status Date / Time
No Known Allergies Allergy Verified 04/30/24 19:06
�Medication �Instructions �Recorded �Confirmed �Type
letrozole 2.5 mg tablet 2.5 mg PO DAILY@1200 Cancer 06/01/16 04/30/24 History
palbociclib 100 mg capsule 100 mg PO UD Cancer 03/07/18 04/30/24 History
(Ibrance)
cholecalciferol (vitamin D3) 50 2,000 units PO DAILY Supplement 11/18/19 04/30/24 History
mcg (2,000 unit) tablet
omeprazole magnesium 20 mg 20 mg PO DAILY Gastrointestinal 04/29/20 04/30/24 History
tablet,delayed release (Prilosec issue
OTC)
ascorbic acid (vitamin C) 500 mg 500 mg PO DAILY Supplement 12/16/22 04/30/24 History
tablet (Vitamin C)
carvedilol 12.5 mg tablet (Coreg) 12.5 mg PO BID Blood Pressure 12/16/22 04/30/24 History
dapagliflozin propanediol 10 mg 10 mg PO DAILY Diabetes 12/16/22 04/30/24 History
tablet (Farxiga)
ezetimibe 10 mg tablet (Zetia) 10 mg PO DAILY High Cholesterol 12/16/22 04/30/24 History
sacubitril 97 mg-valsartan 103 mg 1 tab PO BID Blood Pressure 12/16/22 04/30/24 History
tablet (Entresto)
spironolactone 25 mg tablet 12.5 mg PO DAILY Fluid 12/16/22 04/30/24 History
Retention/Swelling
apixaban 5 mg tablet (Eliquis) 5 mg PO BID Blood Clot 01/02/24 04/30/24 History
Prevention/Tx
Review of Systems
-
History Source: Patient
All other systems: Negative unless noted
A 10 point review of systems was completed, and was negative except as per HPI.
Physical Exam
Vital Signs
Temp Pulse Resp BP Pulse Ox
98.1 F 78 16 106/48 95
05/01/24 07:50 05/01/24 08:13 05/01/24 07:50 05/01/24 08:14 05/01/24 07:50
04/30/24 05/01/24 05/02/24
06:59 06:59 06:59
Actual Weight 119.04 kg
Body Mass Index (BMI) 43.7
Lab Results
WBC 4.6 10^3/uL (4.8-10.8) L 08/18/24 19:13
Hgb 11.8 g/dL (12.0-16.0) L 04/30/24 19:13
Hct 34.6 % (37.0-47.0) L 04/30/24 19:13
Plt Count 258 10^3/uL (130-400) 04/30/24 19:13
Abs Immat Gran (auto) 0.0 10^3/uL (0-0.05) 04/30/24 19:13
Neutrophils % 58.4 % (42.2-75.2) 04/30/24 19:13
Physical Exam
General: Well Developed and Well Nourished
HEENT: Moist Mucous Membranes
Respiratory: Non Labored Respirations
GI: Soft, Non Tender and Non Distended
Skin: Warm
Neuro: Awake, Alert and AO x 3
Psych: Calm
Assessment / Plan
-
58 yo female with a history of dvt/pe on Eliquis, breast cancer dx in 2002 with mets to spine tx with XRT in 2014 and recent possible mets to liver although not confirmed with biopsy on Ibrance and letrozole, partial left nephrectomy with path
benign, EFREN/BSO in 2004 and history of recurrent sbo's. CT imaging reviewed which is similar to prior partial obstructions with transition point in the lower abdomen. She has had interim resolution of symptoms. Passing flatus. Exam is benign. AFVSS.
No leukoctyosis.
--Will advance diet to low residue
--Clear for d/c later today if tolerating diet
--Discussed outpatient follow up for scheduled dx lap given pattern of recurrence, she will d/w her oncologist.
--- NOTE | 2024-05-01 10:34 | CM ---
Reviewed the chart notes and spoke with the patient at the bedside. The patient is admitted under observational status. The observational letter was provided and explained. The patient had no questions with regards to the letter.
The patient resides with her spouse in a two story home with one step to enter. The patient reports no DME/SNF in the past, but had VN years ago after breast surgery. Patient could not recall the name of the agency. The patient confirmed her
pharmacy of choice is the [facility] Yarely Dang continues to be available to patient/family and is monitoring medical plan for needs at discharge.
Plan: Discharge to home when medically stable. No needs anticipated at this time.
[2024-05-01 10:45] LABS: Blood Urea Nitrogen 13 mg/dl (7-17); Calcium 8.9 mg/dl (8.4-10.2); Carbon Dioxide 23 mmol/L (22-30); Chloride 109 mmol/L (98-107); Estimated Creatinine Clearance 98 ml/min; Glucose 100 mg/dl (70-99); Magnesium 2.1 mg/dl (1.6-2.3); Potassium 4.3 mmol/L (3.5-5.1); Sodium 136 mmol/L (135-145); eGFR > 60.00
[2024-05-01 10:56] LABS: Hemoglobin 10.3 g/dL (12.0-16.0); Mean Corp Hgb Conc. 33.2 g/dL (33.0-37.0); Mean Corpuscular Hgb 32.9 pg (27.0-31.0); Mean Platelet Volume 9.8 fL (7.4-10.4); Platelet Count 199 10^3/uL (130-400); Red Blood Cell Count 3.13 10^6/uL (4.20-5.40); Red Cell Dist. Width 16.6 % (11.5-14.5); White Blood Cell Count 2.8 10^3/uL (4.8-10.8)
[2024-05-01] MEDS: FEMARA 2.5 MG PO (11:46)
--- NOTE | 2024-05-01 11:55 | W.DCSUMMARY ---
Discharge Summary
Discharge Data
Date of Admission: 04/30/24
Date of Discharge: 05/01/24
-
Pending Results: No
Discharge Plan
-
Patient Disposition: Home (Routine Discharge)
Discharge Diagnosis/Procedures: Partial Small Bowel Obstruction
Mild Anemia
Metastatic Breast Cancer
Condition: Fair
Diet: Low Fiber
Activity: As tolerated
Driving Restrictions: As prior to admission
Bathing Restrictions: None
Blood Work: Please repeat CBC, obtain B12 Folate levels, and iron studies with Primary Care Provider in 1 week of discharge- for further evaluation mild anemia
Activity Restrictions/Additional Instructions:
Please follow up with primary care provider and oncologist in 1 week of discharge. Follow up with surgeon in 4-6 weeks of discharge.
Instructions: Low Fiber Diet
Referrals:
Pedro Hartmann DO [Family Provider] - in one week
Casey Pereira MD [Active] - in four to six weeks
Prescriptions:
Continued
letrozole 2.5 MG tablet
2.5 mg PO DAILY@1200
Ibrance 100 MG capsule
100 mg PO UD
Patient Comments:
12/16/22--21 days on; 7 days off, PATIENT WILL START HER 7 DAYS OFF ON 12/17/22
Rx Instructions:
take for 21 days then off for 7 days
cholecalciferol (vitamin D3) 2,000 UNITS tablet
2,000 units PO DAILY
omeprazole magnesium [Prilosec OTC] 20 MG tablet,delayed release (DR/EC)
20 mg PO DAILY
carvedilol [Coreg] 12.5 mg Tablet
12.5 mg PO BID
spironolactone 25 mg Tablet
12.5 mg PO DAILY
ascorbic acid (vitamin C) [Vitamin C] 500 mg Tablet
500 mg PO DAILY
ezetimibe [Zetia] 10 mg Tablet
10 mg PO DAILY
dapagliflozin propanediol [Farxiga] 10 mg tablet
10 mg PO DAILY
Entresto 97-103 mg Tablet
1 tab PO BID
Eliquis 5 MG tablet
5 mg PO BID
Discharge Orders:
Discharge Patient (As Directed); Ordered 05/01/24
Ordered By: Leonardo Ray
Discharge Date and Time
Print Language: [place] ISLAND[place]
[2024-05-01 12:33] VITALS: BP 94/41
[2024-05-01 12:40] VITALS: BP 102/62
== END 2024-05-01 13:22 | disposition home or self-care (01) ==
LOC: 2 SOUTH 23:55
PROVIDERS: ADMITTING PHYSICIAN Internal Medicine; ATTENDING PHYSICIAN Internal Medicine; CONSULT PHYSICIAN Surgery; EMERGENCY PHYSICIAN Emergency Medicine; FAMILY PHYSICIAN Family Medicine
DX: K56.600 Partial intestinal obstruction, unspecified as to cause (principal); D64.9 Anemia, unspecified; R10.9 Unspecified abdominal pain; I48.0 Paroxysmal atrial fibrillation; K58.9 Irritable bowel syndrome, unspecified; K44.9 Diaphragmatic hernia without obstruction or gangrene; C78.7 Secondary malignant neoplasm of liver and intrahepatic bile duct; C50.919 Malignant neoplasm of unspecified site of unspecified female breast; E66.9 Obesity, unspecified; E78.00 Pure hypercholesterolemia, unspecified; K21.9 Gastro-esophageal reflux disease without esophagitis; G43.909 Migraine, unspecified, not intractable, without status migrainosus; Q21.12 Patent foramen ovale; F41.9 Anxiety disorder, unspecified; F32.A Depression, unspecified; I25.10 Atherosclerotic heart disease of native coronary artery without angina pectoris; Z85.3 Personal history of malignant neoplasm of breast; Z85.038 Personal history of other malignant neoplasm of large intestine; Z87.891 Personal history of nicotine dependence; Z90.11 Acquired absence of right breast and nipple; Z90.710 Acquired absence of both cervix and uterus; Z85.828 Personal history of other malignant neoplasm of skin; Z90.5 Acquired absence of kidney; Z80.0 Family history of malignant neoplasm of digestive organs; Z80.3 Family history of malignant neoplasm of breast; Z85.528 Personal history of other malignant neoplasm of kidney; Z86.718 Personal history of other venous thrombosis and embolism; Z86.711 Personal history of pulmonary embolism; Z79.811 Long term (current) use of aromatase inhibitors; Z79.84 Long term (current) use of oral hypoglycemic drugs; Z68.41 Body mass index [BMI] 40.0-44.9, adult; Z92.3 Personal history of irradiation
CPT/HCPCS: 74177; 80048; 80053; 83605; 83690; 83735; 85025; 85027; 96361; 96374; 96375; 99285; G0378; Q9967

== ENCOUNTER → 2024-06-12 08:17 | Outpatient (REF) | payer OTHER, SELFPAY ==
--- NOTE | 2024-06-12 09:50 | CARDSERVLU ---
Echocardiogram with Lumason completed after protocol screening completed. Allergies verified.
Patent IV site: __left AC___
IV site flushed with 0.9% NaCl pre and post administration.
Diluted bolus method utilized to enhance visualization of ventricular mcadams.
Total volume given: _3.0__ mL
Patient tolerated all procedures well without complications.
#22 sary placed Left AC. INT removed. dsg applied. pressure held. No bleeding noted.
== END ==
LOC: RCS 08:17
PROVIDERS: ATTENDING PHYSICIAN Internal Medicine Cardiovascular Disease; FAMILY PHYSICIAN Family Medicine
DX: I42.0 Dilated cardiomyopathy (principal)
CPT/HCPCS: 93307; Q9957

== ENCOUNTER 2024-06-25 02:37 | Emergency (ER) | payer OTHER, SELFPAY ==
[2024-06-25 02:38] VITALS: BP 126/64
--- NOTE | 2024-06-25 02:56 | ED.GENMED ---
History of Present Illness
<Omari Singh MD, Resident - Last Filed: 06/25/24 04:41>
General
Chief Complaint: Cough
Source: patient, records and family
Time Seen by Provider: 06/25/24 02:45
Travel History
Have you traveled to any high risk areas for coronavirus over the past 14 days?: No
Have you had any contact with someone who has COVID-19?: No
Do you have any symptoms of coronavirus? Fever > 100 degrees, chills, cough, shortness of breath, sore throat, loss of taste or smell, muscle aches, or headache?: No
History of Present Illness
History of Present Illness:
Lia Funk, 58-year-old female with metastatic breast cancer on palbociclib, history of recurrent neutropenia and chronic heart failure with reduced ejection fraction, has had worsening cough, sore throat, and chest congestion over the past
couple of days. Also notes intermittent chills and fatigue. She was scheduled to see pulmonology for suspected asthma/COPD since she has had chronic cough for the past 2 years, but came to the emergency when the cough got significantly worse acutely.
Past History
<Omari Singh MD, Resident - Last Filed: 06/25/24 04:41>
Past History
ED Past Medical History: Arrthythmia (Paroxysmal atrial fibrillation), Cancer (Metastatic breast cancer) and Other (IBS, diverticulosis, L BBB, Ulcers, small bowel obstruction)
ED Past Surgical History: Gynecological (hysterectomy,), Urological (Partial left Nephrectomy) and Other (Skin cancer removal, right mastectomy)
Social History
Tobacco: Former smoker
Alcohol: None
Drug: None
Personal:
Living: with family
Employment: Other
Family History
Family History: Other (Noncontributory sister passed from breast cancer father passed from gallbladder cancer)
Review of Systems
<Omari Singh MD, Resident - Last Filed: 06/25/24 04:41>
Review of Systems
Allergies reviewed?: Yes
All Other Systems: ROS reviewed and negative except as documented in HPI and ROS
Phy Exam
<Omari Singh MD, Resident - Last Filed: 06/25/24 04:41>
General Physical Exam
General Presentation: well appearing and no apparent distress
General Skin: warm and dry
General Habitus: normal
General Mental: alert
General Hydration: appears well hydrated
ENT Exam
ENT Exam: EOMI, pharynx normal, neck supple and normocephalic
Eye Exam
Eye Exam: PERRL, cornea clear and conjunctiva normal
Cardiovascular Exam
Cardiovascular Exam: regular rate/rhythm, no edema, no murmur and normal peripheral pulses
Pulmonary Exam
Pulmonary Exam: lungs clear, no respiratory distress, no stridor and other (coarse breath sounds at bases)
Gastrointestinal Exam
Gastrointestinal Exam: normal bowel sounds, non tender, soft, no organomegaly, no pulsatile mass and non distended
Neurological Exam
Neurological Exam: alert, oriented x3, no motor deficits and speech normal
Musculoskeletal Exam
Musculoskeletal Exam: full ROM and no edema
Skin Exam
Skin Exam: normal color, warm/dry, no rash and no petechia
Psychiatric Exam
Psychiatric Exam: normal mood/affect
Course
<Omari Singh MD, Resident - Last Filed: 06/25/24 04:41>
Orders/Labs/Results
Orders:
Orders
06/25/24 02:45
CR Chest - 2 Views Urgent
Comment:
Reason For Exam: cough; chest congestion
06/25/24 03:24
COVID-19 Antigen Urgent
Source: Nasal Swab
Complete Blood Count/With Diff Urgent
Comprehensive Metabolic Panel Urgent
Lactic Acid Urgent
Influenza A+B Rapid Molecular Urgent
ANNALISA Source: Nasal Swab
Specimen Description:
06/25/24 03:47
Acetaminophen [Tylenol] 1,000 mg PO NOW STA
06/25/24 03:56
Add On- LAB Stat
Tests Added?: diff to CBC
06/25/24 03:59
Ipratropium/Albuterol Sulfate [Duoneb] 3 ml INH R NOW STA
06/25/24 04:31
Dexamethasone [Decadron] 10 mg PO NOW STA
Abnormal Lab Results
06/25/24
03:24
WBC 2.4 L* 10^3/uL
(4.8-10.8)
RBC 3.25 L 10^6/uL
(4.20-5.40)
Hgb 10.5 L g/dL
(12.0-16.0)
Hct 31.2 L %
(37.0-47.0)
MCH 32.3 H pg
(27.0-31.0)
RDW 15.6 H %
(11.5-14.5)
Glucose 118 H mg/dl
(70-99)
SARS-CoV-2 Antigen Positive A
(Negative)
06/25/24 03:24
06/25/24 03:24
Vital Signs
Initial and Last Documented VS:
Initial Vital Signs
Temp Pulse Resp BP
98.8 F 102 26 126/64
06/25/24 02:38 06/25/24 02:38 06/25/24 02:38 06/25/24 02:38
Last Documented Vital Signs
Temp Pulse Resp BP Pulse Ox
98.8 F 89 20 136/66 98
06/25/24 02:38 06/25/24 04:00 06/25/24 04:00 06/25/24 04:00 06/25/24 04:00
<Tyler Rogers MD - Last Filed: 06/25/24 04:38>
Orders/Labs/Results
Orders:
Orders
06/25/24 02:45
CR Chest - 2 Views Urgent
Comment:
Reason For Exam: cough; chest congestion
06/25/24 03:24
COVID-19 Antigen Urgent
Source: Nasal Swab
Complete Blood Count/With Diff Urgent
Comprehensive Metabolic Panel Urgent
Lactic Acid Urgent
Influenza A+B Rapid Molecular Urgent
ANNALISA Source: Nasal Swab
Specimen Description:
06/25/24 03:47
Acetaminophen [Tylenol] 1,000 mg PO NOW STA
06/25/24 03:56
Add On- LAB Stat
Tests Added?: diff to CBC
06/25/24 03:59
Ipratropium/Albuterol Sulfate [Duoneb] 3 ml INH R NOW STA
06/25/24 04:31
Dexamethasone [Decadron] 10 mg PO NOW STA
Abnormal Lab Results
06/25/24
03:24
WBC 2.4 L* 10^3/uL
(4.8-10.8)
RBC 3.25 L 10^6/uL
(4.20-5.40)
Hgb 10.5 L g/dL
(12.0-16.0)
Hct 31.2 L %
(37.0-47.0)
MCH 32.3 H pg
(27.0-31.0)
RDW 15.6 H %
(11.5-14.5)
Glucose 118 H mg/dl
(70-99)
SARS-CoV-2 Antigen Positive A
(Negative)
06/25/24 03:24
06/25/24 03:24
Vital Signs
Initial and Last Documented VS:
Initial Vital Signs
Temp Pulse Resp BP
98.8 F 102 26 126/64
06/25/24 02:38 06/25/24 02:38 06/25/24 02:38 06/25/24 02:38
Last Documented Vital Signs
Temp Pulse Resp BP Pulse Ox
98.8 F 89 20 136/66 98
06/25/24 02:38 06/25/24 04:00 06/25/24 04:00 06/25/24 04:00 06/25/24 04:00
<Omari Singh MD, Resident - Last Filed: 06/25/24 04:41>
*Critical Care Note
Total Time (30-74mins, 75-104mins- exclusive of procedures): Not Applicable
ED Attending Note
<Omari Singh MD, Resident - Last Filed: 06/25/24 04:41>
-
Portions of this chart may have been created with voice recognition software.� Occasional wrong word or��sound alike� substitutions may have occurred due to the inherent limitations of voice recognition software.
<Tyler Rogers MD - Last Filed: 06/25/24 04:38>
ED Attending Note
Patient seen and examined by attending physician: Yes
I performed a history and physical exam of patient and discussed management with resident, I reviewed resident's note and agree with documented findings and plan of care.: Yes
ED Attending Note:
I have seen and evaluated the patient with a [id number] encounter. I have spoken to the resident and involved in the medical history, the physical exam, medical decision making.
Evaluation and management service: agree unless noted differently below.
Results interpretation: agree unless noted differently below.
Focused HPI: 58-year-old female with past medical history of hypertension, hyperlipidemia, CHF, atrial fibrillation, DVT on Eliquis, metastatic breast cancer currently on chemotherapy via [facility]; she presents today for evaluation of
worsening cough and sore throat. Patient reports that she has a chronic cough but over the past 4 days cough has worsened particularly when she lays flat at night. She says that she is having significant sore throat. She says she is having
generalized bodyaches and she is coughing so hard she has some soreness in her ribs. She denies any shortness of breath. She denies any abdominal pain, nausea or diarrhea; she has had 1 or 2 episodes of posttussive emesis but no other vomiting.
She has had some hoarseness. She says that her son was sick recently with similar.
Physical exam: Tachycardic, mild tachypnea with respiratory rate of 20, normal pulse ox on room air. She has scattered wheezing bilaterally, no increased work of breathing. No cardiac rubs gallops or murmurs. Abdomen soft nontender. No edema in
her extremities. She has some slight pharyngeal injection, no tonsillar enlargement or exudate and midline uvula, no trismus, no drooling.
Medical Decision Makin-year-old female presents with acute on chronic cough and sore throat, malaise for the past 4 days. Vitals and exam as above. Check labs including a CBC and a CMP. Check COVID and flu. Check chest x-ray. Can treat
with a DuoNeb and Tylenol. Reassess after the above.
Labs reviewed: CBC shows stable leukopenia, stable anemia, CMP no clinically significant abnormalities. COVID was positive which fits with clinical picture. Chest x-ray reviewed by me shows no pneumonia or other acute pathology. Clinical
reassessment patient feeling better, no wheezing on lung auscultation still occasional coughing. Had a long discussion with the patient�we spoke about potentially starting on Paxlovid but patient declined. Prefers to pursue supportive care. Given
that she did have wheezing and has significant sore throat reasonable to give a dose of dexamethasone here. Can prescribe albuterol for home. Advised to take Tylenol as needed and drink plenty of fluids. Spoke in detail about return precautions.
All questions answered.
Discharge Plan
Departure
Patient Disposition: Home (Routine Discharge)
Date of Disposition: 06/25/24
Time of Disposition: 04:36
Patient with high blood pressure during this ER visit?: No
Discharge Problem:
COVID-19, Bronchitis, Pharyngitis
Instructions: COVID-19 ED
Prescriptions:
New
albuterol sulfate 90 mcg/actuation HFA aerosol inhaler
2 puff inhalation Q6H PRN (Reason: shortness of breath or wheezing) Qty: 6.7 0RF
No Action
letrozole 2.5 MG tablet
2.5 mg PO DAILY@1200
Ibrance 100 MG capsule
100 mg PO UD
Patient Comments:
12/16/22--21 days on; 7 days off, PATIENT WILL START HER 7 DAYS OFF ON 12/17/22
Rx Instructions:
take for 21 days then off for 7 days
cholecalciferol (vitamin D3) 2,000 UNITS tablet
2,000 units PO DAILY
omeprazole magnesium [Prilosec OTC] 20 MG tablet,delayed release (DR/EC)
20 mg PO DAILY
carvedilol [Coreg] 12.5 mg Tablet
12.5 mg PO BID
spironolactone 25 mg Tablet
12.5 mg PO DAILY
ascorbic acid (vitamin C) [Vitamin C] 500 mg Tablet
500 mg PO DAILY
ezetimibe [Zetia] 10 mg Tablet
10 mg PO DAILY
dapagliflozin propanediol [Farxiga] 10 mg tablet
10 mg PO DAILY
Entresto 97-103 mg Tablet
1 tab PO BID
Eliquis 5 MG tablet
5 mg PO BID
Referrals:
Pedro Hartmann DO [Family Provider] - Call in 1-3 days for appt
Stand Alone Forms: Return to Work
Activity Restrictions/Additional Instructions:
Thank you for visiting the Emergency Department at [facility].
1. Please schedule a follow up appointment as directed. Call first thing tomorrow morning to make an appointment.
2. If indicated, please take your medications as instructed and indicated on discharge paperwork.
3. If any of your symptoms do not improve, or persist, or become more severe within 6-12 hours, please return to the emergency department for further care.
4. Please return to the emergency department if you develop a headache, neck pain/stiffness, fever greater than 100.4F, chest pain, shortness of breath, persistent nausea, vomiting, slurred speech, difficulty walking, numbness/tingling, weakness,
signs of infection or any other symptoms that are worrisome to you.
Please call [phone] if you have any questions.
Interventions
Interventions:
*Risk Screen - Suicide Last Done: 06/25/24 02:38
*General Assessment Last Done: 06/25/24 03:14
*Neglect/Abuse Screening Last Done: 06/25/24 02:38
*ED COVID-19 Vaccine History Last Done: 06/25/24 03:14
ED-EENT Assessment Last Done: 06/25/24 03:36
ED- Pulmonary Assessment Last Done: 06/25/24 03:36
Discharge Date and Time
Print Language: COLOMBI[place]
[2024-06-25 03:43] LABS: COVID-19 Antigen Positive (Negative)
[2024-06-25 03:48] LABS: Hematocrit 31.2 % (37.0-47.0); Hemoglobin 10.5 g/dL (12.0-16.0); Mean Corp Hgb Conc. 33.7 g/dL (33.0-37.0); Mean Corpuscular Hgb 32.3 pg (27.0-31.0); Mean Platelet Volume 10.2 fL (7.4-10.4); Platelet Count 191 10^3/uL (130-400); Red Blood Cell Count 3.25 10^6/uL (4.20-5.40); Red Cell Dist. Width 15.6 % (11.5-14.5); White Blood Cell Count 2.4 10^3/uL (4.8-10.8)
[2024-06-25 03:49] LABS: Lactic Acid 0.7 mmol/L (0.7-2.0)
[2024-06-25 03:50] LABS: ALT (SGPT) 20 U/L (0-35); AST (SGOT) 29 U/L (14-36); Albumin 3.9 g/dl (3.5-5.0); Alkaline Phosphatase 73 U/L (38-126); Blood Urea Nitrogen 11 mg/dl (7-17); Calcium 8.7 mg/dl (8.4-10.2); Carbon Dioxide 22 mmol/L (22-30); Chloride 107 mmol/L (98-107); Glucose 118 mg/dl (70-99); Potassium 3.8 mmol/L (3.5-5.1); Sodium 142 mmol/L (135-145); Total Bilirubin 0.3 mg/dl (0.2-1.3); Total Protein 6.6 g/dl (6.3-8.2); eGFR > 60.00
[2024-06-25 04:00] VITALS: BP 136/66
[2024-06-25] MEDS: TYLENOL 1000 MG PO (04:02)
[2024-06-25] MEDS: DUONEB 3 ML INH (04:02)
[2024-06-25] MEDS: DECADRON 10 MG PO (04:38)
[2024-06-25 05:23] LABS: Absolute Neutrophils -Man Diff 1.2 10^3/uL (1.4-6.5); Anisocytosis 1+; Atypical Lymphocytes 5 %; Band Neutrophils 3 % (0-3); Eosinophils 3 % (0-6); Lymphocytes 22 % (20-51); Monocytes 16 % (2-9); Normal RBC Morphology No; Platelets Checked Yes; Segmented Neutrophils 50 % (42-75); Total Cells Counted 100
[2024-06-25 05:24] LABS: Ovalocytes 1+; Target Cells 1+
[2024-06-25 05:28] LABS: Hypochromasia 1+; Stomatocytes 2+; Tear Drop Red Blood Cells Occasional
== END 2024-06-25 04:45 | disposition home or self-care (01) ==
LOC: EMR 02:37
PROVIDERS: Student in an Organized Health Care Education/Training Program; EMERGENCY PHYSICIAN Emergency Medicine; FAMILY PHYSICIAN Family Medicine
DX: U07.1 COVID-19 (principal); J40 Bronchitis, not specified as acute or chronic; J02.9 Acute pharyngitis, unspecified; C50.919 Malignant neoplasm of unspecified site of unspecified female breast; I48.0 Paroxysmal atrial fibrillation; I50.22 Chronic systolic (congestive) heart failure; Z90.710 Acquired absence of both cervix and uterus; Z90.11 Acquired absence of right breast and nipple; Z87.891 Personal history of nicotine dependence; Z90.5 Acquired absence of kidney
CPT/HCPCS: 94640; 99284; 71046; 80053; 83605; 85025; 87502; 87811

== ENCOUNTER 2024-08-01 10:19 | Inpatient (IN) | payer OTHER, SELFPAY ==
[2024-08-01] VITALS (20 sets, daily range): BP systolic 90–150; BP diastolic 35–88; BMI 42.1; BMI 41.8
--- NOTE | 2024-08-01 03:22 | ED.GENMED ---
History of Present Illness
General
Chief Complaint: Abdominal Pain
Source: patient
Exam Limitations: none
Time Seen by Provider: 08/01/24 02:24
Nursing documentation reviewed up to this point in time: agreed with
History of Present Illness
History of Present Illness:
Patient presents to ED secondary to sudden onset of flank/back pain radiating to her lower abdomen, shortly after having dinner around 7 PM. Patient reports intermittent symptoms since then, along with nausea sensation without vomiting. Denies
diarrhea. Denies fever. Denies trauma. Denies difficulty urination. Patient unfortunately has had similar symptoms in the past, including recent admission to the hospital for partial bowel obstruction. Patient is currently receiving active
chemo treatment for metastatic breast cancer.
Past History
Past History
ED Past Medical History: Arrthythmia (Paroxysmal atrial fibrillation), Cancer (Metastatic breast cancer) and Other (IBS, diverticulosis, L BBB, Ulcers, small bowel obstruction)
ED Past Surgical History: Gynecological (hysterectomy,), Urological (Partial left Nephrectomy) and Other (Skin cancer removal, right mastectomy)
Social History
Tobacco: Former smoker
Alcohol: None
Drug: None
Personal:
Living: with family
Employment: Other
Family History
Family History: Other (Noncontributory sister passed from breast cancer father passed from gallbladder cancer)
Review of Systems
Review of Systems
Allergies reviewed?: Yes
All Other Systems: ROS reviewed and negative except as documented in HPI and ROS
Constitutional: Reports no symptoms
Cardiac: Reports no symptoms
ABD/GI: Reports abdominal pain and nausea; Denies vomiting
: Reports flank pain
Musculoskeletal: Reports no symptoms
Skin: Reports no symptoms
Neurological: Reports no symptoms
Phy Exam
Physical Exam
Physical Exam:
Physical Exam
General: mild painful distress, not acutely ill. afebrile
Head: nc/at. eomi
Neck: supple. no meningeal signs.
Heart: s1/s2 regular rate and rhythm, no murmur. equal radial pulses.
Lungs: no acute respiratory distress. clear bilaterally
Abdomen: normal bowel sounds. mild RUQ/epigastric tenderness to palpation
Neuro: alert and oriented. no focal neurological deficits
Skin: no rash
Psychiatric: well kept. interactive and cooperative
Extremities: no edema. no calf tenderness.
Course
Orders/Labs/Results
Orders:
Orders
08/01/24 02:55
HYDROmorphone [Dilaudid] 0.5 mg IV NOW STA
Ondansetron Injectable [Zofran] 4 mg IV NOW STA
US Abdomen Complete/Upper Urgent
Comment:
Reason For Exam: RUQ pain
08/01/24 02:56
CR Obstruct Series W/pa Chest Urgent
Comment:
Reason For Exam: abdominal pain
08/01/24 03:22
Complete Blood Count/With Diff Urgent
Comprehensive Metabolic Panel Urgent
Lipase Urgent
08/01/24 05:14
HYDROmorphone [Dilaudid] 0.5 mg IV NOW STA
Iohexol [Omnipaque] See Protocol PO NOW STA
Pantoprazole [Protonix IV] 40 mg IV NOW STA
08/01/24 05:15
CT Abd/pel W Iv And Oral Contr Urgent
Comment:
Reason For Exam: abdominal pain
08/01/24 Breakfast
NPO
Allow oral meds: Yes
Allow clear liquids: Sips of Clears
08/01/24 07:27
Urinalysis Reflex To Culture Urgent
Date Specimen was Collected: 08/01/24
Time Specimen was Collected: 06:09
Urine Microscopic Reflex Cult Urgent
Urine Culture Urgent
ANNALISA Source: U
Specimen Description:
Date Specimen was Collected: 08/01/24
Time Specimen was Collected: 06:09
08/01/24 09:35
Admit/Transfer Patient As Directed
Co-Sign Provider:
Level of Care: Inpatient admission
Assign to:: Medical/Surgical
Physician / Group: Lonnie Castillo
Transfer to: Telemetry
Diagnosis: Small bowel obstruction
Patient Condition: Fair
Reason for Telemetry: Medication for Arrhythmia
Date to Stop Telemetry: 08/03/24
Time to Stop Telemetry: 11:00
Reason for Hospitalization: Small bowel obstruction
Expected length of stay greater than two midnights?: Yes
ELOS- Estimated Length of Stay in days: 3
I certify the patient meets the requirements for IP care: Yes
Reason for Overnight Stay: Standard of Care
PRN Pain Medication Management As Directed
May give lesser potent ordered pain med per pt: Yes
preference::
Protocol:: Medication orders for pain may be administered in a
manner that supports deferring to patient preference
when the pt is:
- Requesting an ordered lesser potent pain medication.
Least to most potent pain medications are defined
as: acetaminophen < NSAID < tramadol < opioids
(morphine, oxycodone, hydromorphone).
- Requesting a lesser dose of the same medication IF
ORDERED.
- Requesting a less intrusive route of administration
if both routes are prescribed by the provider (PO <
IV).
08/01/24 10:14
Ondansetron Injectable [Zofran] 4 mg IV Q6HPRN PRN
08/01/24 12:15
EKG [Electrocardiogram (*1)] Routine
Reason for Study: QTc Monitoring
08/01/24 13:28
DX DVT Prevention Inpt Video Routine
DX Deep Vein Thrombosis Video Routine
08/01/24 14:30
Heparin 5,000 units SC Q12
08/01/24 20:00
Carvedilol [Coreg] 12.5 mg PO BID
Fluticasone/Salmeterol 115/21 [Advair Hfa 115/21 Mcg Inhaler] 2 puff INH R BID
Sacubitril 97/Valsartan 103 [Entresto 97 mg/103 mg] 1 tab PO BID
08/02/24 08:00
Dapagliflozin [Farxiga] 10 mg PO DAILY
Ezetimibe [Zetia] 10 mg PO DAILY
Pantoprazole [Protonix IV] 40 mg IV DAILY
Spironolactone [Aldactone] 12.5 mg PO DAILY
08/03/24 11:00
DC Protocol for Telemetry ONCE
Abnormal Lab Results
08/01/24 08/01/24
03:22 07:27
RBC 3.42 L 10^6/uL
(4.20-5.40)
Hgb 11.1 L g/dL
(12.0-16.0)
Hct 34.9 L %
(37.0-47.0)
MCV 102.0 H fL
(81.0-99.0)
MCH 32.5 H pg
(27.0-31.0)
MCHC 31.8 L g/dL
(33.0-37.0)
RDW 17.6 H %
(11.5-14.5)
Absolute Lymphs (auto) 0.8 L 10^3/uL
(1.2-3.4)
Absolute Monos (auto) 0.8 H 10^3/uL
(0.1-0.6)
Neutrophils % 76.6 H %
(42.2-75.2)
Lymphocytes % 11.1 L %
(20.5-51.1)
Monocytes % 10.4 H %
(1.7-9.3)
Glucose 123 H mg/dl
(70-99)
Ur Occult Blood Reflex 2+ A
(Negative)
Leukocyte Esterase Rfl 2+ A
(Negative)
Urine RBC 11-15 A /HPF
(0-2)
Urine WBC (Reflex) 26-30 A /HPF
(0-5)
Urine Bacteria (Reflex) Few A
(Negative)
Urine Glucose 3+ A
(Negative)
08/01/24 03:22
08/01/24 03:22
Vital Signs
Initial and Last Documented VS:
Initial Vital Signs
Temp Pulse Resp BP Pulse Ox
99.0 F 95 20 133/77 96
08/01/24 02:03 08/01/24 02:03 08/01/24 02:03 08/01/24 02:03 08/01/24 02:03
Last Documented Vital Signs
Temp Pulse Resp BP Pulse Ox
98.7 F 88 18 108/51 96
08/02/24 11:05 08/02/24 11:05 08/02/24 11:05 08/02/24 11:05 08/02/24 11:05
MDM/Problems Addressed
MDM/Problems Addressed:
Patient with an unremarkable initial workup, including blood work, x-ray, and abdominal ultrasound. However, in light of patient's ongoing persistent abdominal pain, as well as previous history of bowel obstruction, will order CT abdomen pelvis at
this time.
*Critical Care Note
Total Time (30-74mins, 75-104mins- exclusive of procedures): Not Applicable
ED Attending Note
-
Portions of this chart may have been created with voice recognition software.� Occasional wrong word or��sound alike� substitutions may have occurred due to the inherent limitations of voice recognition software.
Discharge Plan
Departure
Patient Disposition: Admit
Date of Disposition: 08/01/24
Time of Disposition: 08:54
Admit to: Med/Surg
Presentation/result/management discussed w/ accepting MD/DO: Hospitalist
Condition: Fair
Discharge Problem:
Small bowel obstruction
Interventions
Interventions:
*Risk Screen - Suicide Last Done: 08/01/24 02:03
*General Assessment Last Done: 08/01/24 02:03
*Neglect/Abuse Screening Last Done: 08/01/24 02:03
ED- Fall Risk Assessment Last Done: 08/01/24 02:03
*ED COVID-19 Vaccine History Last Done: 08/01/24 02:03
*Nursing Disposition Last Done: 08/01/24 16:23
JL-Oacetg-Ogbmkyvaoi Assessment Last Done: 08/01/24 07:32
Discharge Date and Time
Discharge Date/Time: 08/01/24 16:23
[2024-08-01] MEDS: ZOFRAN 4 MG IV ×2 (03:25→12:00)
[2024-08-01] MEDS: DILAUDID 0.5 MG IV ×2 (03:26→05:27)
[2024-08-01 03:41] LABS: % Basophils 0.7 % (0-2); % Eosinophils 1.1 % (0-6); % Immature Granulocytes 0.1 % (0-0.5); % Lymphocytes 11.1 % (20.5-51.1); % Monocytes 10.4 % (1.7-9.3); % Neutrophils 76.6 % (42.2-75.2); Absolute Basophils 0.1 10^3/uL (0-0.2); Absolute Eosinophils 0.1 10^3/uL (0-0.7); Absolute Lymphocytes 0.8 10^3/uL (1.2-3.4); Absolute Monocytes 0.8 10^3/uL (0.1-0.6); Absolute Neutrophils 5.7 10^3/uL (1.4-6.5); Hematocrit 34.9 % (37.0-47.0); Hemoglobin 11.1 g/dL (12.0-16.0); Mean Corp Hgb Conc. 31.8 g/dL (33.0-37.0); Mean Corpuscular Hgb 32.5 pg (27.0-31.0); Mean Platelet Volume 10.2 fL (7.4-10.4); Nucleated Red Blood Cells % 0 %; Platelet Count 206 10^3/uL (130-400); Red Blood Cell Count 3.42 10^6/uL (4.20-5.40); Red Cell Dist. Width 17.6 % (11.5-14.5); White Blood Cell Count 7.4 10^3/uL (4.8-10.8)
[2024-08-01 04:02] LABS: ALT (SGPT) 30 U/L (0-35); AST (SGOT) 35 U/L (14-36); Albumin 3.7 g/dl (3.5-5.0); Alkaline Phosphatase 90 U/L (38-126); Blood Urea Nitrogen 14 mg/dl (7-17); Calcium 9.1 mg/dl (8.4-10.2); Carbon Dioxide 26 mmol/L (22-30); Chloride 106 mmol/L (98-107); Estimated Creatinine Clearance 99 ml/min; Glucose 123 mg/dl (70-99); Lipase 107 U/L (23-300); Potassium 4.3 mmol/L (3.5-5.1); Sodium 140 mmol/L (135-145); Total Bilirubin 0.8 mg/dl (0.2-1.3); Total Protein 6.4 g/dl (6.3-8.2); eGFR > 60.00
[2024-08-01] MEDS: PROTONIX IV 40 MG IV (05:30)
[2024-08-01] MEDS: OMNIPAQUE 50 ML PO (05:33)
[2024-08-01 08:12] LABS: Urine Albumin Negative (Neg - Trace); Urine Bilirubin Negative (Negative); Urine Character Clear (Clear); Urine Color Yellow; Urine Glucose 3+ (Negative); Urine Ketone Negative (Negative); Urine Leukocyte 2+ (Negative); Urine Nitrite Negative (Negative); Urine Occult Blood 2+ (Negative); Urine Specific Gravity 1.025 (<1.030); Urine Urobilinogen Negative (Neg - 1+)
[2024-08-01 08:27] LABS: Urine Squamous Cell 16-20 /LPF (Few); Urine Urothelial Cell 0-2 /LPF (FEW)
[2024-08-01 08:29] LABS: Urine Bacteria Few (Negative); Urine White Cell 26-30 /HPF (0-5)
--- NOTE | 2024-08-01 10:49 | EDRN ---
I texted the attending to place a PRN pain med order for this pt
--- NOTE | 2024-08-01 10:58 | CON.GS ---
Medical History
-
Chief Complaint: Abdominal pain and nausea
History of Present Illness:
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
spine tx with XRT in 2014 and presumed liver mets (no biopsy) follows at [facility] on Capecitabine. Ms. Funk has had recurrent issues with SBO's with previous admissions this year in October, December, and most recently in April. Previous episodes
have resolved quickly with medical management. Current episode began yesterday evening. Was feeling well prior to this. No clear dietary indiscretion, last meal was a turkey sandwich with lettuce and tomato. Continues to have some crampy
abdominal discomfort and mild nausea. No episodes of emesis. No fevers or chills. No flatus or SBO since onset of symptoms.
Past Medical History
Past Medical History: Cancer (Skin, stage IV Breast with known mets or spine and liver) and Other (Obesity, DVT/PE)
Past Surgical History: Gynecological (EFREN/BSO), Urological (RAL L partial nephrectomy) and Other (R mastectomy and ALND)
Social History
Tobacco: Non-Smoker
Alcohol: None
Drug: None
Family History
Family History: Reviewed & Not Pertinent
Allergies / Home Medications
Allergy/AdvReac Type Severity Reaction Status Date / Time
No Known Allergies Allergy Verified 08/01/24 02:02
�Medication �Instructions �Recorded �Confirmed �Type
cholecalciferol (vitamin D3) 50 2,000 units PO DAILY Supplement 11/18/19 08/01/24 History
mcg (2,000 unit) tablet
omeprazole magnesium 20 mg 20 mg PO DAILY Gastrointestinal 04/29/20 08/01/24 History
tablet,delayed release (Prilosec issue
OTC)
ascorbic acid (vitamin C) 500 mg 500 mg PO DAILY Supplement 12/16/22 08/01/24 History
tablet (Vitamin C)
carvedilol 12.5 mg tablet (Coreg) 12.5 mg PO BID Blood Pressure 12/16/22 08/01/24 History
dapagliflozin propanediol 10 mg 10 mg PO DAILY Diabetes 12/16/22 08/01/24 History
tablet (Farxiga)
ezetimibe 10 mg tablet (Zetia) 10 mg PO DAILY High Cholesterol 12/16/22 08/01/24 History
sacubitril 97 mg-valsartan 103 mg 1 tab PO BID Heart Failure 12/16/22 08/01/24 History
tablet (Entresto)
spironolactone 25 mg tablet 12.5 mg PO DAILY heart failure/BP 12/16/22 08/01/24 History
apixaban 5 mg tablet (Eliquis) 5 mg PO BID Blood Clot 01/02/24 08/01/24 History
Prevention/Tx
benzonatate 100 mg capsule 100 mg PO TID PRN cough 08/01/24 08/01/24 History
capecitabine 500 mg tablet 1,500 mg PO UD Cancer 08/01/24 08/01/24 History
eqqaosyrv-DQZ-oenqcyyocvrbf tablet 1 tab PO DAILYPRN PRN cough 08/01/24 08/01/24 History
fluticasone propionate 115 2 puff inhalation R BID 08/01/24 08/01/24 History
mcg-salmeterol 21 mcg/actuation Lung/Breathing Issues
HFA inhaler
Review of Systems
-
A 10 point review of systems was completed, and was negative except as per HPI.
Physical Exam
Vital Signs
Temp Pulse Resp BP Pulse Ox
99.0 F 87 22 150/58 95
08/01/24 02:03 08/01/24 10:19 08/01/24 10:19 08/01/24 10:19 08/01/24 10:00
07/31/24 08/01/24 08/02/24
06:59 06:59 06:59
Actual Weight 118.2 kg
Body Mass Index (BMI) 42.1
Lab Results
08/01/24 03:22
08/01/24 03:22
WBC 7.4 10^3/uL (4.8-10.8) 08/01/24 03:22
Hgb 11.1 g/dL (12.0-16.0) L 08/01/24 03:22
Hct 34.9 % (37.0-47.0) L 08/01/24 03:22
Plt Count 206 10^3/uL (130-400) 08/01/24 03:22
Abs Immat Gran (auto) 0.0 10^3/uL (0-0.05) 08/01/24 03:22
Neutrophils % 76.6 % (42.2-75.2) H 08/01/24 03:22
Physical Exam
General: Well Developed, Well Nourished, No Apparent Distress and Pain
HEENT: Normocephalic and Anicteric
Respiratory: Non Labored Respirations
Cardiac: Regular Rhythm
GI: Soft, Tender (mild RIGHT abdomen and epigastrium), Obese and Other (No diffuse peritonitis)
Skin: Warm and Dry
Neuro: Nonfocal/Grossly Intact
Data Reviewed
-
CT Scan: Image Personally Visualized and interpreted and Report Reviewed by me
Labs: Labs Reviewed by me
Old Records: Reviewed
Assessment / Plan
-
Patient is a 58 yo F p/w recurrent SBO secondary to adhesions possible malignant
Patient well versed on the natural history and pathophysiology of bowel obstructions. Recent CT scan imaging with increased number of hepatic lesions was relayed to the patient. High risk for surgical intervention at this time given recent Eliquis
use. High risk for wound related complications secondary to obesity, diabetes, and chemotherapy. Given her persistent issues she likely will need operative intervention at some point in time. Recommend medical management for now with bowel rest,
fluid hydration, and NGT compression as needed. Repeat abdominal x-ray to follow contrast progression later this afternoon. All questions answered.
-- NPO, IVF
-- NGT if persistent nausea or emesis, risks and benefits relayed
-- Repeat abd X-ray this afternoon for contrast progression
-- Hold Eliquis
[2024-08-01] MEDS: DILAUDID 1 MG IV (11:54)
--- NOTE | 2024-08-01 14:21 | EDRN ---
Pharmacy was asked at [id number] to verify ordered meds and schedule them for admin
--- NOTE | 2024-08-01 14:27 | HPS.HSE ---
Addendum entered and electronically signed by Lonnie Castillo MD 08/02/24 00:41:
Attending Addendum-
I performed a history and physical exam of the patient and discussed his management with the resident. I reviewed the resident's note and agree with the documented findings and plan of care CC/HPI- patient with multiple episodes of SBO. Presents
from home with with complaints of worsening abd distention vomiting x 1. last BM 2 days ago not passing flatus Full 12 point ROS reviewed and negative except as documented Exam- vitals reviewed in EMR GEN-NAD heart tachycardic lungs clear
abd distended decreased BS TTP generalized no rebound guarding LE no edema
Plan:
# SBO
- monitor closely
- malignancy related
- CT a/p 08/01-
1. Distal small bowel obstruction with transition point in the right lower quadrant.
2. Interval progression of hepatic metastases.
- NPO/IVF
- surg c/s- may need surgical intervention
# Chronic HFrEF
- monitor fluid status closely
- cont IVF for now while npo
- last echo 06/12- EF 35-40%
- cont spirino, entresto, farxiga
- strict I and O/daily wts
# Stage IV Breast Ca
- met to liver
- appears worse per CT
- hold cepecitabine for now
# Paroxysmal A fib with RVR
- tele
- start lopressor IV
- hold coreg
- hold eliquis
# H/O DVT/PE
- hold eliquis
-cont DVT proph
# HLD
- hold zetia
# GERD
- cont IV protonix
Time spent coordinating care, review of plan of care with resident, personally reviewed previous records in EMR, med rec, labs, radiology, d/w nursing, family �- 79 mins
Original Note:
Family Physician
-
Family Physician: Pedro Hartmann
Chief Complaint
-
Abdominal pain, nausea, emesis.
History of Present Illness
58-year-old female with past medical history significant for paroxysmal A-fib, metastatic breast cancer currently on capecitabine chemotherapy (14 days on 7 days off cycle), recurrent partial small bowel obstructions, IBS, diverticulosis, HFrEF
presents to the hospital for evaluation of sudden onset back and abdominal pain, nausea associated with emesis for 4 hours. She had a sudden onset right sided back pain/flank pain that radiated into her right lower quadrant, was sharp and and
cramping in nature, 7-8/10 in intensity when she came to the ER, associated with mild nausea and she threw up her dinner (turkey sandwich) but no bilious or bloody emesis. She reports to have had similar symptoms before but they would subside in
few hours with passing of flatus.
Her last bowel movement was day before yesterday night, she did not have bowel movements after that, she states that she has IBS and her bowel movements has not changed from her baseline. Denies having diarrhea or blood in her stools. She denies
having fever, chest pain, shortness of breath, blurring of vision, dizziness, lightheadedness, increased or decreased urinary frequency, hesitancy, urgency, recent weight gain greater than 5 pounds in 1 week. She continues to have some intermittent
cramping abdominal discomfort, and mild nausea but no emesis over the last 12 hours.
Of note she was admitted to hospital for partial small bowel obstruction in October, December and April of 2024, that spontaneously resolved in 2 days.
Medical History
Past Medical History
Past Medical History: Reports Other (Paroxysmal A-fib, obesity, anxiety, DVT/PE (on Eliquis, last dose scheduled for 07/31), metastatic breast cancer with mets to liver, no biopsy done, IBS, diverticulosis, LBBB, small bowel obstruction, ulcers,
HFrEF-EF 36 to 40%, and mets to spine s/p radiation therapy in 2014.)
Past Surgical History: Reports Other (Basal cell carcinoma excision from face, robotic partial left nephrectomy, status post open abdominal EFREN/BSO )
Social History
Tobacco: Former Smoker (20 pack years, quit smoking in 2002.)
Alcohol: None
Drug: None
Personal:
Living: With Family
Employment: Employed
Family History
Family History: Not pertinent
Allergies / Home Medications
Allergies reflects when Allergies were last updated in [facility].
Home Medications with original date entered in [facility]
Allergy/Medication List:
Allergies
Allergy/AdvReac Type Severity Reaction Status Date / Time
No Known Allergies Allergy Verified 08/01/24 02:02
Home Medications
cholecalciferol (vitamin D3) 50 mcg (2,000 unit) tablet 2,000 units PO DAILY Supplement 11/18/19
omeprazole magnesium 20 mg tablet,delayed release (Prilosec OTC) 20 mg PO DAILY Gastrointestinal issue 04/29/20
ascorbic acid (vitamin C) 500 mg tablet (Vitamin C) 500 mg PO DAILY Supplement 12/16/22
carvedilol 12.5 mg tablet (Coreg) 12.5 mg PO BID Blood Pressure 12/16/22
dapagliflozin propanediol 10 mg tablet (Farxiga) 10 mg PO DAILY Diabetes 12/16/22
ezetimibe 10 mg tablet (Zetia) 10 mg PO DAILY High Cholesterol 12/16/22
sacubitril 97 mg-valsartan 103 mg tablet (Entresto) 1 tab PO BID Heart Failure 12/16/22
spironolactone 25 mg tablet 12.5 mg PO DAILY heart failure/BP 12/16/22
apixaban 5 mg tablet (Eliquis) 5 mg PO BID Blood Clot Prevention/Tx 01/02/24
benzonatate 100 mg capsule 100 mg PO TID PRN cough 08/01/24
capecitabine 500 mg tablet 1,500 mg PO UD Cancer 08/01/24
jajfxkbzd-ZOO-lawnfxieayyjw tablet 1 tab PO DAILYPRN PRN cough 08/01/24
fluticasone propionate 115 mcg-salmeterol 21 mcg/actuation HFA inhaler 2 puff inhalation R BID Lung/Breathing Issues 08/01/24
Review of Systems
-
History Source: Patient
Constitutional: Reports No Symptoms
EENT: Reports No Symptoms
Respiratory: Reports No Symptoms
Cardiac: Reports No Symptoms
Abdomen/GI: Reports Abdominal Pain, Nausea, Vomiting and Other (bloated, no flatus)
: Reports Flank Pain
Musculoskeletal: Reports No Symptoms
Skin: Reports No Symptoms
Neurological: Reports No Symptoms
Endocrine: Reports No Symptoms
Hematologic/Lymphatic: Reports No Symptoms
Psych: Reports No Symptoms
Physical Exam
Vital Signs
Vital Signs
Temp Pulse Resp BP Pulse Ox
99.0 F 96 22 127/88 96
08/01/24 02:03 08/01/24 14:00 08/01/24 11:00 08/01/24 14:00 08/01/24 14:00
Physical Exam
General: No Apparent Distress, Comfortable and Obese
HEENT: Moist mucous membranes and Atraumatic
Respiratory: Clear; No Wheezes, Rales or Rhonchi
Cardiac: S1/S2, Regular Rhythm and Tachycardia
GI: Soft, Non Tender and Other (obese, could not comment on distension, bowel sounds diminished.)
Genito-urinary: Clear Urine
Musculoskeletal: Other (b/l ankle edema notes, patient states that oit is her baseline)
Skin: Warm
Neuro: Awake and Nonfocal/grossly intact
Hematologic/Lymphatic: No Lymphadenopathy
Psych: Calm
Laboratory Results
-
08/01/24 03:22
08/01/24 03:22
Laboratory Results
Total Bilirubin 0.8 mg/dl (0.2-1.3) 08/01/24 03:22
AST 35 U/L (14-36) 08/01/24 03:22
ALT 30 U/L (0-35) 08/01/24 03:22
Alkaline Phosphatase 90 U/L (38-126) 08/01/24 03:22
Lipase 107 U/L (23-300) 08/01/24 03:22
Impression/Plan
-
IMPRESSION:
58-year-old female with past medical history of recurrent partial small bowel obstructions, paroxysmal A-fib, breast carcinoma with mets to liver on capecitabine therapy, IBS, diverticulosis, HFrEF with EF 35 to 40%, presents to the hospital for
evaluation of right lower quadrant pain, nausea and emesis-diagnosed with small bowel obstruction.
PLAN:
Small bowel obstruction-
As evidenced by CT abdomen-distal small bowel obstruction with transition point in right lower quadrant.
She is mildly nauseous but does not have active emesis.
Currently patient's vital signs are stable except for tachypnea and mild hypoxia secondary to pain.
N.p.o., IV maintenance fluids at 80
Repeat abdominal x-ray in the noon to assess for the contrast progression.
General surgery consulted, on board, appreciate inputs.
Patient on Eliquis, Eliquis held.
Chronic HFrEF-
Most recent echo on 06/12/2024-showed evidence of reduced ejection fraction at 35 to 40%
Patient on guideline directed medical therapy, dapagliflozin, Entresto, spironolactone, carvedilol.
Hold patient dapagliflozin because of her n.p.o.
Carvedilol oral medication held, patient started on IV metoprolol with holding parameters.
Monitor I's and O's, monitor weight, monitor renal function closely.
Paroxysmal A-fib-
Patient is on rate control with carvedilol and Eliquis for stroke prevention.
[id number] score-at 5.
Eliquis held for SBO management.
Hypertension-
Metoprolol IV 5 mg every 6 hourly with holding parameters.
Metastatic breast carcinoma-
Mets to spine, XRT in 2015, spine mets in remission.
Mets to liver, no biopsy done.
Today the CT abdomen showed worsening liver mets.
On capecitabine 14 days on, 7 days of regimen. Last dose on 07/31 morning.
DVT/PE -
On Eliquis. Eliquis on hold. Patient is started on heparin 5000 units.
DVT prophylaxis-
Heparin 5000 units SC every 12 hours.
CODE STATUS full code
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
[2024-08-01] MEDS: HEPARIN 5000 UNITS SC ×2 (14:43→20:53)
[2024-08-01] MEDS: NSS 1000 IV (15:12)
--- NOTE | 2024-08-01 16:39 | PTCARENOTE ---
Pt received from ED via stretcher. Pt AAOX3. Pt ambulated with steady gait to stretcher and then to 338-2. Pt oriented to staff and environment.
[2024-08-01] MEDS: ADVAIR HFA 115/21 MCG INHALER 2 PUFF INH (19:52)
[2024-08-01] MEDS: ENTRESTO 97 MG/103 MG 1 TAB PO (20:53)
[2024-08-01] MEDS: LOPRESSOR IV (23:36)
[2024-08-02 03:00] VITALS: BP 107/63
[2024-08-02] MEDS: NSS 1000 IV ×2 (03:47→15:31)
[2024-08-02] MEDS: LOPRESSOR IV (05:29)
[2024-08-02 05:42] LABS: Hematocrit 33.7 % (37.0-47.0); Hemoglobin 10.6 g/dL (12.0-16.0); Mean Corp Hgb Conc. 31.5 g/dL (33.0-37.0); Mean Corpuscular Hgb 32.9 pg (27.0-31.0); Mean Corpuscular Volume 104.7 fL (81.0-99.0); Mean Platelet Volume 10.5 fL (7.4-10.4); Platelet Count 182 10^3/uL (130-400); Red Blood Cell Count 3.22 10^6/uL (4.20-5.40); Red Cell Dist. Width 17.7 % (11.5-14.5); White Blood Cell Count 6.1 10^3/uL (4.8-10.8)
[2024-08-02 06:04] LABS: Blood Urea Nitrogen 10 mg/dl (7-17); Calcium 8.2 mg/dl (8.4-10.2); Carbon Dioxide 24 mmol/L (22-30); Chloride 106 mmol/L (98-107); Estimated Creatinine Clearance 113 ml/min; Glucose 99 mg/dl (70-99); Potassium 3.9 mmol/L (3.5-5.1); Sodium 138 mmol/L (135-145); eGFR > 60.00
[2024-08-02 07:15] VITALS: BP 99/55
[2024-08-02] MEDS: ADVAIR HFA 115/21 MCG INHALER 2 PUFF INH ×2 (07:46→20:00)
[2024-08-02] MEDS: NSS (PRESERVATIVE FREE) 10 ML IV (08:28)
[2024-08-02] MEDS: FARXIGA 10 MG PO (08:28)
[2024-08-02] MEDS: ENTRESTO 97 MG/103 MG 1 TAB PO ×2 (08:28→20:45)
[2024-08-02] MEDS: ZETIA 10 MG PO (08:28)
[2024-08-02] MEDS: HEPARIN 5000 UNITS SC ×2 (08:29→20:45)
[2024-08-02] MEDS: ALDACTONE 12.5 MG PO (08:29)
[2024-08-02] MEDS: PROTONIX IV 40 MG IV (08:29)
--- NOTE | 2024-08-02 08:37 | W.PN.HOSP.TC ---
Addendum entered and electronically signed by Lonnie Castillo MD 08/02/24 23:20:
Attending Addendum-
I saw and evaluated the patient. I reviewed the resident�s note and agree with findings and plan as documented in the resident�s note. Sub- patient crying when advised to stay. 'This cancer is getting worse and i wanna go home!' No BM states she
passed flatus. Full 12 point ROS reviewed and negative except as documented Exam- vitals reviewed in EMR GEN-NAD heart RRR no M/R/Glungs clear abd mild distended decreased BS mild TTP generalized no rebound guarding LE no edema
Plan:
# SBO
- resolving
- malignancy related
- CT a/p 08/01-
1. Distal small bowel obstruction with transition point in the right lower quadrant.
2. Interval progression of hepatic metastases.
- abd x ray 08/01- personally reviewed contrast passing through colon
- advance to CLD->LRD if lawanda
# Chronic HFrEF
- monitor fluid status closely
- restart meds
- DC IVF
- last echo 06/12- EF 35-40%
- cont spirino, entresto, farxiga
- strict I and O/daily wts
# Stage IV Breast Ca
- met to spine and liver
- liver mets appears worse per CT
- hold cepecitabine for now
- send images to patients primary onc
# Paroxysmal A fib with RVR
- tele
- resolved
- restart coreg
- restart eliquis as OP
# H/O DVT/PE
- hold eliquis
- cont DVT proph
# HLD
- hold zetia
# GERD
- cont IV protonix
CODE- FULL
Dispo DC in am
Patient consented to discuss, was alone, time spent explanation of advance directives, changes in health status, patient�s health care wishes if the patient becomes unable to make health decisions, goals of care, code status, and prognosis 'im still
going to fight this!' - 16 minutes
Time spent coordinating care, review of plan of care with resident, personally reviewed previous records in EMR, med rec, labs, radiology, d/w nursing/surg, total time documented is exclusive of any additional time listed that was spent in advance
care planning discussion -� 55 minutes
Original Note:
Today's Communication/Plan
-
discontinue IV lopressor
Resume home dose medications - Carvedilol and Farxiga.
Clear liquids till noon, and advance to low residue in the night.
If tolerates well, plan for discharge tomorrow.
Assessment / Plan
Assessment / Plan
Assessment -
58-year-old female with a past medical history significant for GERD and bowel obstructions, A-fib, metastatic breast cancer cardiology on capecitabine therapy presented to the hospital for abdominal pain nausea and emesis and is diagnosed with,
small bowel obstruction.
Plan -
Small bowel obstruction-
As evidenced by CT abdomen-distal small bowel obstruction with transition point in right lower quadrant.
Patient's nausea improved, and stated that she passed significant amount of gas however with no bowel movements.
Currently patient's vital signs are stable, no
N.p.o., IV maintenance fluids at 80
Repeat abdominal x-ray in the evening yesterday-transition of contrast into the colon present
General surgery on board,
Patient on Eliquis, Eliquis held.
Chronic HFrEF-
Most recent echo on 06/12/2024-showed evidence of reduced ejection fraction at 35 to 40%
Patient on guideline directed medical therapy, dapagliflozin, Entresto, spironolactone, carvedilol.
Resume dapaglifozin
resume carvedilol.
Monitor I's and O's, monitor weight, monitor renal function closely.
Paroxysmal A-fib-
Patient is on rate control with carvedilol and Eliquis for stroke prevention.
[id number] score-at 5.
Eliquis held for SBO management. Will resume Eliquis beginning tomorrow if cleared from surgery.
Hypertension-
Metoprolol IV 5 mg every 6 hourly with holding parameters.
Metastatic breast carcinoma-
Mets to spine, XRT in 2014, spine mets in remission.
Mets to liver, no biopsy done.
Today the CT abdomen showed worsening liver mets.
On capecitabine 14 days on, 7 days of regimen. Last dose on 07/31 morning.
DVT/PE -
On Eliquis. Eliquis on hold. Patient is started on heparin 5000 units.
DVT prophylaxis-
Heparin 5000 units SC every 12 hours.
CODE STATUS full code
Anticipated Discharge: Within 24 hours
Subjective/Interval History
-
Date of Service: August 02, 2024
Patient stated that she passed gas, she was not in pain overnight. However she did not have a bowel movement. Patient is requesting if she can go home as she knows the whole drill.
Objective Data
-
Labs:
Laboratory Results
08/02/24
05:13
WBC 6.1
Hgb 10.6 L
Hct 33.7 L
Plt Count 182
Sodium 138
Potassium 3.9
Chloride 106
Carbon Dioxide 24
BUN 10
Creatinine 0.7
Glucose 99
Calcium 8.2 L
Vital Signs:
Vital Signs
Temp Pulse Resp BP Pulse Ox
98.6 F 88 16 99/55 96
08/02/24 07:15 08/02/24 07:50 08/02/24 07:50 08/02/24 07:15 08/02/24 07:50
I&O
08/01/24 08/02/24 08/03/24
06:59 06:59 06:59
Intake Total 0 / 0
Balance 0 / 0
Review of Systems
-
History Source: Patient
Constitutional: Reports No Symptoms
EENT: Reports No Symptoms Reported
Respiratory: Reports No Symptoms
Cardiac: Reports No Symptoms
Abdomen/GI: Reports Nausea and Constipated; Denies Vomiting, Pain or Bloated
Breast: Reports No Symptoms
Genitourinary: Reports No Symptoms
Musculoskeletal: Reports No Symptoms
Skin: Reports No Symptoms
Neuro: Reports No Symptoms
Endocrine: Reports No Symptoms
Hematologic / Lymphatic: Reports No Symptoms
Allergy / Immunology: Reports No Symptoms
Physical Exam
-
General: No Apparent Distress and Comfortable
HEENT: Moist Mucous Membranes
Respiratory: Clear to Auscultation; Negative Wheezes, Rales or Rhonchi
Cardiac: Regular Rhythm, S1/S2 and Tachycardic; Negative Murmur, Rub or Gallop
GI: Soft, Nontender, Nondistended and Normal Bowel Sounds
Genito-urinary: No Costovertebral Tender
Musculoskeletal: No Clubbing, No Cyanosis and No Edema
Skin: Warm
Neuro: AO x 3 and No Motor Deficits
Psych: Calm
[2024-08-02 10:26] VITALS: BMI 41.9
--- NOTE | 2024-08-02 10:31 | W.PN.GS2 ---
Today's Communication / Plan
-
CLD --> LRD
Assessment / Plan
-
58F with resolving pSBO
AFVSS, pain and nausea resolved, passing flatus
She is well versed in SBO mgmt, having been through this many times
Plan to trial CLD, if she tolerates can do LRD next meal and DC when tolerating
Subjective Data
-
Date of Service: August 02, 2024
Resolution of symptoms, denies n/v, passing flatus, denies abd pain, anxious to adv diet
Objective Data
-
Intake and Output
08/01/24 08/02/24 08/03/24
06:59 06:59 06:59
Intake Total 0 / 0
Balance 0 / 0
Intake:
Oral fluids 0 / 0
Other:
Number of approximated MODERATE 2
amounts of urine
Vital Signs
Temp Pulse Resp BP Pulse Ox
98.6 F 88 16 99/55 96
08/02/24 07:15 08/02/24 07:50 08/02/24 07:50 08/02/24 07:15 08/02/24 07:50
Lab Results
08/02/24 05:13
08/02/24 05:13
Calcium 8.2 mg/dl (8.4-10.2) L 08/02/24 05:13
Total Bilirubin 0.8 mg/dl (0.2-1.3) 08/01/24 03:22
AST 35 U/L (14-36) 08/01/24 03:22
ALT 30 U/L (0-35) 08/01/24 03:22
Alkaline Phosphatase 90 U/L (38-126) 08/01/24 03:22
Total Protein 6.4 g/dl (6.3-8.2) 08/01/24 03:22
Albumin 3.7 g/dl (3.5-5.0) 08/01/24 03:22
Physical Exam
-
Gen: NAD
Abd: soft, nt, nd, obese
[2024-08-02 11:05] VITALS: BP 108/51
[2024-08-02 11:35] LABS: Folate 17.7 ng/ml (2.76-20); Vitamin B12 341 pg/ml (239-931)
[2024-08-02] MEDS: LOPRESSOR 5 MG IV (12:13)
[2024-08-02 15:09] VITALS: BP 114/60
--- NOTE | 2024-08-02 16:29 | CM ---
Alert awake oriented patient who lives with her Lyndon in a 2 story home with 2 steps to enter and 11 steps to bed/bathroom. She is independent in activates of daily living.She does drive .Offered VN she declined need. Observation letter
given explained signed on chart.
No VN in past . No SNF hx
Pharmacy [facility]
PCP Dr Hartmann
PLAN Home with no needs
[2024-08-02 19:15] VITALS: BP 110/47
[2024-08-02 23:02] VITALS: BP 104/49
[2024-08-03 03:10] VITALS: BP 109/47
[2024-08-03] MEDS: NSS 1000 IV (04:23)
[2024-08-03 05:38] LABS: Hematocrit 31.8 % (37.0-47.0); Mean Corp Hgb Conc. 31.4 g/dL (33.0-37.0); Mean Corpuscular Hgb 32.7 pg (27.0-31.0); Mean Corpuscular Volume 103.9 fL (81.0-99.0); Mean Platelet Volume 10.3 fL (7.4-10.4); Platelet Count 183 10^3/uL (130-400); Red Blood Cell Count 3.06 10^6/uL (4.20-5.40); White Blood Cell Count 4.9 10^3/uL (4.8-10.8)
[2024-08-03 06:00] VITALS: BMI 41.9
[2024-08-03 06:07] LABS: Blood Urea Nitrogen 8 mg/dl (7-17); Calcium 8.4 mg/dl (8.4-10.2); Carbon Dioxide 22 mmol/L (22-30); Chloride 108 mmol/L (98-107); Estimated Creatinine Clearance 113 ml/min; Glucose 89 mg/dl (70-99); Potassium 3.9 mmol/L (3.5-5.1); Sodium 139 mmol/L (135-145); eGFR > 60.00
[2024-08-03 07:22] VITALS: BP 122/70
--- NOTE | 2024-08-03 08:09 | W.PN.HOSP.TC ---
Addendum entered and electronically signed by Lonnie Castillo MD 08/04/24 00:14:
Attending Addendum-
I saw and evaluated the patient. I reviewed the resident�s note and agree with findings and plan as documented in the resident�s note. Sub- No BM states she passed flatus. no n/v. lawanda diet 'Im going home today!' Full 12 point ROS reviewed and
negative except as documented Exam- vitals reviewed in EMR GEN-NAD heart RRR no M/R/Glungs clear abd mild distended decreased BS mild TTP generalized no rebound guarding LE no edema
Plan:
# SBO
- resolved
- malignancy related
- CT a/p 08/01-
1. Distal small bowel obstruction with transition point in the right lower quadrant.
2. Interval progression of hepatic metastases.
- abd x ray 08/01- personally reviewed contrast passing through colon
- lawanda LRD- DC home d/w surg
# Chronic HFrEF
- last echo 06/12- EF 35-40%
- cont spirino, entresto, farxigas
# Stage IV Breast Ca
- met to spine and liver
- liver mets appears worse per CT
- hold cepecitabine for now
- send images to patients primary onc
- f/u as OP
# Paroxysmal A fib with RVR
- tele
- resolved
- restart coreg
- restart eliquis as OP
# H/O DVT/PE
- hold eliquis
- cont DVT proph
# HLD
- hold zetia
# GERD
- cont IV protonix
CODE- FULL
Dispo DC home
Time spent coordinating care, DC planning, review of DC plan of care with resident, transition of care, review of records, med rec/scripts sent electronically, consults, notes, d/w consultants/surg, nursing, family, and CM� 35 mins
Original Note:
Today's Communication/Plan
-
[facility] for discharge if cleared by surgery.
Assessment / Plan
Assessment / Plan
Assessment -
58-year-old female with a past medical history significant for GERD and bowel obstructions, A-fib, metastatic breast cancer cardiology on capecitabine therapy presented to the hospital for abdominal pain nausea and emesis and is diagnosed with,
small bowel obstruction.
Plan -
Small bowel obstruction-
As evidenced by CT abdomen-distal small bowel obstruction with transition point in right lower quadrant.
Patient's nausea improved, and stated that she passed significant amount of gas however with no bowel movements.
Currently patient's vital signs are stable, no
Diet advanced to Low residue yesteray, Patient tolerated low residue diet well.
Repeat abdominal x-ray in the evening yesterday-transition of contrast into the colon present
General surgery on board,
Patient on Eliquis, Eliquis held.
Chronic HFrEF-
Most recent echo on 06/12/2024-showed evidence of reduced ejection fraction at 35 to 40%
Patient on guideline directed medical therapy, dapagliflozin, Entresto, spironolactone, carvedilol.
Resume dapaglifozin
resume carvedilol.
Monitor I's and O's, monitor weight, monitor renal function closely.
Paroxysmal A-fib-
Patient is on rate control with carvedilol and Eliquis for stroke prevention.
[id number] score-at 5.
Eliquis held for SBO management. Will resume Eliquis beginning tomorrow if cleared from surgery.
Hypertension-
Metoprolol IV 5 mg every 6 hourly with holding parameters.
Metastatic breast carcinoma-
Mets to spine, XRT in 2014, spine mets in remission.
Mets to liver, no biopsy done.
Today the CT abdomen showed worsening liver mets.
On capecitabine 14 days on, 7 days of regimen. Last dose on 07/31 morning.
DVT/PE -
On Eliquis. Eliquis on hold. Patient is started on heparin 5000 units.
DVT prophylaxis-
Heparin 5000 units SC every 12 hours.
CODE STATUS full code
Anticipated Discharge: Within 24 hours
Subjective/Interval History
-
Date of Service: August 03, 2024
No symptoms overnight, No bowel movements yet, but was able to tolerate low residue diet, and pass flatus.
Objective Data
-
Labs:
Laboratory Results
08/03/24
05:09
WBC 4.9
Hgb 10.0 L
Hct 31.8 L
Plt Count 183
Sodium 139
Potassium 3.9
Chloride 108 H
Carbon Dioxide 22
BUN 8
Creatinine 0.7
Glucose 89
Calcium 8.4
Vital Signs:
Vital Signs
Temp Pulse Resp BP Pulse Ox
98 F 90 18 122/70 93
08/03/24 07:22 08/03/24 07:22 08/03/24 07:22 08/03/24 07:22 08/03/24 07:22
I&O
08/02/24 08/03/24 08/04/24
06:59 06:59 06:59
Intake Total 0 / 0 2700 / 2700
Balance 0 / 0 2700 / 2700
Physical Exam
-
General: No Apparent Distress and Comfortable
HEENT: Moist Mucous Membranes
Respiratory: Clear to Auscultation; Negative Wheezes, Rales or Rhonchi
Cardiac: S1/S2; Negative Murmur, Rub or Gallop
GI: Soft, Nontender, Nondistended and Normal Bowel Sounds
Musculoskeletal: No Edema
Neuro: AO x 3
Psych: Calm
[2024-08-03] MEDS: ADVAIR HFA 115/21 MCG INHALER 2 PUFF INH (08:17)
[2024-08-03 08:53] VITALS: BP 126/82
[2024-08-03] MEDS: PROTONIX IV 40 MG IV (10:19)
[2024-08-03] MEDS: HEPARIN SC ×2 (10:20→10:49)
[2024-08-03] MEDS: NSS (PRESERVATIVE FREE) 10 ML IV (10:20)
[2024-08-03] MEDS: ENTRESTO 97 MG/103 MG 1 TAB PO (10:22)
[2024-08-03] MEDS: FARXIGA 10 MG PO (10:23)
[2024-08-03] MEDS: ZETIA 10 MG PO (10:23)
[2024-08-03] MEDS: ALDACTONE 12.5 MG PO (10:24)
--- NOTE | 2024-08-03 10:32 | W.DS.TRANS ---
DC Summary - Business Support Liaison
-
Discharge Instructions:
Sleep Apnea Risk Intermediate
Discharge Diagnosis/Procedures Partial small bowel obstruction
Diet Low Residue
Additional Diets Advance diet as tolerated
Activity No restrictions
Driving Restrictions As prior to admission
Bathing Restrictions None
Instructions: Small Bowel Obstruction (DC)
Stand-Alone Forms:
Changes to Home Medications: No
Discharge Medications:
DC Medications w/original date entered in Evernote
cholecalciferol (vitamin D3) 50 mcg (2,000 unit) tablet 2,000 units PO DAILY Supplement 11/18/19
omeprazole magnesium 20 mg tablet,delayed release (Prilosec OTC) 20 mg PO DAILY Gastrointestinal issue 04/29/20
ascorbic acid (vitamin C) 500 mg tablet (Vitamin C) 500 mg PO DAILY Supplement 12/16/22
carvedilol 12.5 mg tablet (Coreg) 12.5 mg PO BID Blood Pressure 12/16/22
dapagliflozin propanediol 10 mg tablet (Farxiga) 10 mg PO DAILY Diabetes 12/16/22
ezetimibe 10 mg tablet (Zetia) 10 mg PO DAILY High Cholesterol 12/16/22
sacubitril 97 mg-valsartan 103 mg tablet (Entresto) 1 tab PO BID Heart Failure 12/16/22
spironolactone 25 mg tablet 12.5 mg PO DAILY heart failure/BP 12/16/22
apixaban 5 mg tablet (Eliquis) 5 mg PO BID Blood Clot Prevention/Tx 01/02/24
benzonatate 100 mg capsule 100 mg PO TID PRN cough 08/01/24
capecitabine 500 mg tablet 1,500 mg PO UD Cancer 08/01/24
kxowcariw-QDO-nftcwtrifueyp tablet 1 tab PO DAILYPRN PRN cough 08/01/24
fluticasone propionate 115 mcg-salmeterol 21 mcg/actuation HFA inhaler 2 puff inhalation R BID Lung/Breathing Issues 08/01/24
dapagliflozin propanediol 10 mg tablet 10 mg PO DAILY Heart Failure 30 days #30 tabs 08/03/24
ondansetron HCl 4 mg tablet 4 mg PO DAILY PRN nausea and vomiting 3 days #10 tabs 08/03/24
Home Medication Changes
Pending Results: No
--- NOTE | 2024-08-03 10:33 | W.DCSUMMARY ---
Addendum entered and electronically signed by Lonnie Castillo MD 08/04/24 00:14:
Read, reviewed, and agree. See same day progress note for additional details. Adamant about going home. No BM pos flatus.
Darian Castillo MD
Original Note:
Documented by User: Jenna Ward MD, Resident 08/03/24 10:39
Discharge Summary
Discharge Data
Date of Admission: 08/01/24
Date of Discharge: 08/03/24
-
Pending Results: No
Hospital Course
Assessment -
58-year-old female with past medical history significant for GERD, recurrent bowel obstructions, A-fib, metastatic breast cancer, with mets to liver on capecitabine therapy presented to the hospital for abdominal pain, nausea and emesis-and is
diagnosed with small bowel obstruction.
Hospital course -
Upon admission to the hospital patient was suspected to have small bowel obstruction with transition point in the right lower quadrant. She was made n.p.o., IV fluids were started, her Eliquis was held, she received heparin DVT prophylaxis, and she
was on IV fluids. Her heart failure medications Farxiga and Coreg were held, and she was given IV metoprolol instead. Towards evening a repeat x-ray was ordered to evaluate for progression of the contrast dye, and patient was found to have dye in
her colon that is evident for resolving small bowel obstruction. Overnight she remained on sips of clears on day 1, and her diet was advanced yesterday to clear liquids and low residue diet overnight patient tolerated low residue diet with no
nausea, emesis and abdominal pain. Upon arrival to the ER or throughout her 2-day hospital course she did not have an elevated white blood cell count or hypotension or tachycardia or fevers. Did not meet SIRS criteria hence patient did not receive
any antibiotics.
Conditions BUDDER -
Chronic HFrEF continued Entresto, spironolactone. Held Farxiga and carvedilol on day 1 but resumed it on day 2.
Paroxysmal A-ncm-Givowva was held for stroke, patient received IV metoprolol, [id number] score at 5, will resume Eliquis upon discharge.
Metastatic breast cancer-capecitabine held for 2 days, can resume capecitabine today
Discharge Plan
-
Patient Disposition: Home (Routine Discharge)
Discharge Diagnosis/Procedures: Partial small bowel obstruction
Condition: Fair
Diet: Low Residue
Additional Diets: Advance diet as tolerated
Activity: No restrictions
Driving Restrictions: As prior to admission
Bathing Restrictions: None
Instructions: Small Bowel Obstruction (DC)
Referrals:
Pedro Hartmann DO [Family Provider] -
Prescriptions:
New
dapagliflozin propanediol 10 mg Tablet
10 mg PO DAILY 30 Days Qty: 30 1RF
ondansetron HCl 4 mg tablet
4 mg PO DAILY MDD 12mg PRN (Reason: nausea and vomiting) 3 Days Qty: 10 0RF
Continued
cholecalciferol (vitamin D3) 2,000 UNITS tablet
2,000 units PO DAILY
omeprazole magnesium [Prilosec OTC] 20 MG tablet,delayed release (DR/EC)
20 mg PO DAILY
carvedilol [Coreg] 12.5 mg Tablet
12.5 mg PO BID
spironolactone 25 mg Tablet
12.5 mg PO DAILY
ascorbic acid (vitamin C) [Vitamin C] 500 mg Tablet
500 mg PO DAILY
ezetimibe [Zetia] 10 mg Tablet
10 mg PO DAILY
dapagliflozin propanediol [Farxiga] 10 mg tablet
10 mg PO DAILY
sacubitril-valsartan [Entresto] 97-103 mg Tablet
1 tab PO BID
Eliquis 5 MG tablet
5 mg PO BID
capecitabine 500 mg Tablet
1,500 mg PO UD
Rx Instructions:
twice a day for 14 days, then off for 7 days
benzonatate 100 mg Capsule
100 mg PO TID PRN (Reason: cough)
kownauvzr-HDE-fbxejrvknpujy Tablet
1 tab PO DAILYPRN PRN (Reason: cough)
fluticasone propion-salmeterol 115-21 mcg/actuation HFA aerosol inhaler
2 puff INHALATION R BID
Discharge Orders:
Discharge Patient (As Directed); Ordered 08/03/24
Ordered By: Jenna Ward
Discharge Date and Time
Discharge Date/Time: 08/03/24 11:30
Print Language: UKRAINIAN

Documented by User: Lonnie Castillo MD 08/04/24 00:10
Discharge Summary
Discharge Data
Date of Admission: 08/01/24
Date of Discharge: 08/04/24
Discharge Plan
-
Patient Disposition: Home (Routine Discharge)
Discharge Diagnosis/Procedures: Partial small bowel obstruction
Condition: Fair
Diet: Low Residue
Additional Diets: Advance diet as tolerated
Activity: No restrictions
Driving Restrictions: As prior to admission
Bathing Restrictions: None
Instructions: Small Bowel Obstruction (DC)
Referrals:
Pedro Hartmann DO [Family Provider] -
Prescriptions:
New
dapagliflozin propanediol 10 mg Tablet
10 mg PO DAILY 30 Days Qty: 30 1RF
ondansetron HCl 4 mg tablet
4 mg PO DAILY MDD 12mg PRN (Reason: nausea and vomiting) 3 Days Qty: 10 0RF
Continued
cholecalciferol (vitamin D3) 2,000 UNITS tablet
2,000 units PO DAILY
omeprazole magnesium [Prilosec OTC] 20 MG tablet,delayed release (DR/EC)
20 mg PO DAILY
carvedilol [Coreg] 12.5 mg Tablet
12.5 mg PO BID
spironolactone 25 mg Tablet
12.5 mg PO DAILY
ascorbic acid (vitamin C) [Vitamin C] 500 mg Tablet
500 mg PO DAILY
ezetimibe [Zetia] 10 mg Tablet
10 mg PO DAILY
dapagliflozin propanediol [Farxiga] 10 mg tablet
10 mg PO DAILY
sacubitril-valsartan [Entresto] 97-103 mg Tablet
1 tab PO BID
Eliquis 5 MG tablet
5 mg PO BID
capecitabine 500 mg Tablet
1,500 mg PO UD
Rx Instructions:
twice a day for 14 days, then off for 7 days
benzonatate 100 mg Capsule
100 mg PO TID PRN (Reason: cough)
yfnteqqjy-PRG-fxlgahabkkkjs Tablet
1 tab PO DAILYPRN PRN (Reason: cough)
fluticasone propion-salmeterol 115-21 mcg/actuation HFA aerosol inhaler
2 puff INHALATION R BID
Discharge Orders:
Discharge Patient (As Directed); Ordered 08/03/24
Ordered By: Jenna Ward
Discharge Date and Time
Discharge Date/Time: 08/03/24 11:30
Print Language: UKRAINIAN
--- NOTE | 2024-08-03 11:05 | CM ---
Patient seen bedside.
Per patient for d/c home today.
Denies home care needs.
Daughter in law will transport.
Plan: home no needs.
== END 2024-08-03 11:30 | disposition home or self-care (01) | DRG 389 ==
LOC: 3 WEST ACU 10:19
PROVIDERS: Student in an Organized Health Care Education/Training Program; ADMITTING PHYSICIAN Family Medicine; EMERGENCY PHYSICIAN Emergency Medicine; FAMILY PHYSICIAN Family Medicine; OTHER PHYSICIAN Surgery
DX: K56.600 Partial intestinal obstruction, unspecified as to cause (principal); C78.7 Secondary malignant neoplasm of liver and intrahepatic bile duct; I50.22 Chronic systolic (congestive) heart failure; C79.51 Secondary malignant neoplasm of bone; Z68.41 Body mass index [BMI] 40.0-44.9, adult; Z87.891 Personal history of nicotine dependence; Z79.01 Long term (current) use of anticoagulants; I11.0 Hypertensive heart disease with heart failure; C50.919 Malignant neoplasm of unspecified site of unspecified female breast; I48.0 Paroxysmal atrial fibrillation; K21.9 Gastro-esophageal reflux disease without esophagitis; E78.5 Hyperlipidemia, unspecified; E66.9 Obesity, unspecified
CPT/HCPCS: 74018; 74022; 74177; 76700; 80048; 80053; 81003; 81015; 82607; 82746; 83690; 85025; 85027; 87086; 93005; 94640; 96374; 96375; 96376; 99285; Q9967

== ENCOUNTER → 2024-09-15 08:41 | Outpatient (REF) | payer OTHER, SELFPAY | LOC: RAD 08:41 | PROVIDERS: ATTENDING PHYSICIAN Internal Medicine Medical Oncology; FAMILY PHYSICIAN Family Medicine | DX: C50.919 Malignant neoplasm of unspecified site of unspecified female breast (principal) | CPT/HCPCS: 71260; 74177; Q9967 ==

== ENCOUNTER 2024-10-12 19:48 | Outpatient (REF) | payer OTHER, SELFPAY ==
[2024-10-12 20:01] VITALS: BP 111/77
[2024-10-12 20:42] LABS: ALT (SGPT) 26 U/L (0-35); AST (SGOT) 33 U/L (14-36); Albumin 4.3 g/dl (3.5-5.0); Alkaline Phosphatase 102 U/L (38-126); Blood Urea Nitrogen 10 mg/dl (7-17); Calcium 9.1 mg/dl (8.4-10.2); Carbon Dioxide 25 mmol/L (22-30); Chloride 103 mmol/L (98-107); Glucose 114 mg/dl (70-99); Lipase 79 U/L (23-300); Potassium 4.1 mmol/L (3.5-5.1); Sodium 137 mmol/L (135-145); Total Bilirubin 1.5 mg/dl (0.2-1.3); Total Protein 6.6 g/dl (6.3-8.2); eGFR > 60.00
[2024-10-12 20:43] LABS: % Basophils 0.6 % (0-2); % Eosinophils 1.5 % (0-6); % Immature Granulocytes 0.2 % (0-0.5); % Lymphocytes 10.8 % (20.5-51.1); % Monocytes 10.1 % (1.7-9.3); % Neutrophils 76.8 % (42.2-75.2); Absolute Basophils 0.1 10^3/uL (0-0.2); Absolute Eosinophils 0.1 10^3/uL (0-0.7); Absolute Monocytes 0.9 10^3/uL (0.1-0.6); Absolute Neutrophils 7.1 10^3/uL (1.4-6.5); Hematocrit 35.9 % (37.0-47.0); Hemoglobin 11.7 g/dL (12.0-16.0); Mean Corp Hgb Conc. 32.6 g/dL (33.0-37.0); Mean Corpuscular Hgb 33.9 pg (27.0-31.0); Mean Corpuscular Volume 104.1 fL (81.0-99.0); Mean Platelet Volume 9.5 fL (7.4-10.4); Nucleated Red Blood Cells % 0 %; Platelet Count 211 10^3/uL (130-400); Red Blood Cell Count 3.45 10^6/uL (4.20-5.40); Red Cell Dist. Width 22.4 % (11.5-14.5); White Blood Cell Count 9.2 10^3/uL (4.8-10.8)
[2024-10-12 20:44] LABS: Anisocytosis 1+; Microcytosis 1+; Normal RBC Morphology No
[2024-10-12 20:54] LABS: Troponin I < 0.012 ng/ml
[2024-10-12 23:01] VITALS: BP 121/63
--- NOTE | 2024-10-13 00:30 | EDRN ---
pt and approached desk stating that pt is feeling better and wishes to go home. pt states that her nausea is gone and the cramping in her stomach is better. lwot paper explained and signed by patient. pt and walked out of department
without difficulties
== END 2024-10-13 00:33 ==
LOC: REG 19:48
PROVIDERS: ATTENDING PHYSICIAN Student in an Organized Health Care Education/Training Program
DX: R10.13 Epigastric pain (principal)
CPT/HCPCS: 80053; 83690; 84484; 85025; 93005

== ENCOUNTER 2025-01-09 06:18 | Outpatient (RCR) | payer OTHER, SELFPAY | END 2025-01-09 23:59 | disposition home or self-care (01) | LOC: RPT 06:18 | PROVIDERS: ATTENDING PHYSICIAN Nurse Practitioner Family; FAMILY PHYSICIAN Family Medicine | DX: M62.838 Other muscle spasm (principal); Z73.6 Limitation of activities due to disability | CPT/HCPCS: 97110; 97112; 97162 ==

== ENCOUNTER 2025-01-19 18:42 | Inpatient (IN) | payer OTHER, SELFPAY ==
[2025-01-19] VITALS (7 sets, daily range): BP systolic 95–107; BP diastolic 28–62; BMI 31.7; BMI 40.8
--- NOTE | 2025-01-19 13:43 | ED.GENMED ---
History of Present Illness
General
Chief Complaint: Abdominal Pain
Source: patient and spouse
Exam Limitations: none
Time Seen by Provider: 01/19/25 13:29
History of Present Illness
History of Present Illness:
59-year-old female complaining of vague abdominal pain with nausea. History of bowel obstructions. Feels similar. She had some symptoms 2 days ago seem to improve yesterday but recurring episodes today. History of breast CA with mets to the
liver. No fever or chills. Last bowel movement was yesterday
Past History
Past History
ED Past Medical History: Arrthythmia (Paroxysmal atrial fibrillation), Cancer (Metastatic breast cancer) and Other (IBS, diverticulosis, L BBB, Ulcers, small bowel obstruction)
ED Past Surgical History: Gynecological (hysterectomy,), Urological (Partial left Nephrectomy) and Other (Skin cancer removal, right mastectomy)
Social History
Tobacco: Former smoker
Alcohol: None
Drug: None
Personal:
Living: with family
Employment: Other
Family History
Family History: Other (Noncontributory sister passed from breast cancer father passed from gallbladder cancer)
Review of Systems
Review of Systems
All Other Systems: Not applicable
Constitutional: Denies fever
Respiratory: Reports no symptoms
Cardiac: Reports no symptoms
Phy Exam
Physical Exam
Physical Exam:
GENERAL: Alert and oriented in no apparent distress
EYE: Orbits normal.
NECK: Supple
CARDIAC: Regular rate and rhythm without any obvious murmurs.
LUNGS: Clear breath sounds,normal
ABDOMEN: Soft, elevated BMI. Decreased bowel sounds. Rare bowel sound present. No distention however. No rebound or guarding no mass or hernia. Mild diffuse tenderness mostly in the lower quadrants
NEUROLOGICAL: Alert and oriented , grossly non-focal
SKIN: Warm and dry, no rash or lesion, no discoloration, skin intact.
MUSCULOSKELETAL: No edema,no deformity.Good color
PSYCH: Normal and appropriate interaction.
Course
Orders/Labs/Results
Orders:
Orders
01/19/25 13:29
IV Insert/Care/Rem.- Treatment PRN
01/19/25 13:30
CT Abd/Pel (IV only)-DH only Urgent
Comment:
Reason For Exam: Abdominal pain/history of SBO history of met CA br
01/19/25 13:42
IV Insert/Care/Rem.- Treatment PRN
0.9% Sodium Chloride 500 ml [Nss] 500 ml IV BOLUS
HYDROmorphone [Dilaudid] 0.5 mg IV NOW STA
Ondansetron Injectable [Zofran] 4 mg IV NOW STA
01/19/25 13:54
Complete Blood Count/With Diff Urgent
Comprehensive Metabolic Panel Urgent
Lipase Urgent
01/19/25 Dinner
NPO
Allow oral meds: No
Allow clear liquids: No
NPO with Ice Chips: No
01/19/25 16:13
HYDROmorphone [Dilaudid] 0.5 mg IV NOW STA
01/19/25 16:14
Urinalysis Reflex To Culture Urgent
Date Specimen was Collected: 01/19/25
Time Specimen was Collected: 13:37
Urine Microscopic Reflex Cult Urgent
Urine Culture Urgent
ANNALISA Source: U
Specimen Description:
Date Specimen was Collected: 01/19/25
Time Specimen was Collected: 13:37
01/19/25 17:18
SURGICAL CONSULT Routine
Consulting Provider: Moise Garcia
Was physician already notified: Yes
Reason for consult: early sbo
01/19/25 17:30
0.9% Sodium Chloride 1000 ml [Nss] 1,000 ml IV 100 mls/hr
01/19/25 17:33
Admit/Transfer Patient As Directed
Co-Sign Provider:
Level of Care: Inpatient admission
Assign to:: Telemetry
Physician / Group: molina altman
Diagnosis: early sbp, hypotension volume deple/iv meds, hx afib eliquis
Reason for Telemetry: Arrhythmia
Date to Stop Telemetry: 01/22/25
Time to Stop Telemetry: 11:00
Reason for Hospitalization: early sbp, hypotension volume deple/iv meds, hx afib eliquis
Expected length of stay greater than two midnights?: Yes
ELOS- Estimated Length of Stay in days: 4
I certify the patient meets the requirements for IP care: Yes
Code Status As Directed
Resuscitation Status: Full Code
01/19/25 17:37
PRN Pain Medication Management As Directed
May give lesser potent ordered pain med per pt: Yes
preference::
Protocol:: Medication orders for pain may be administered in a
manner that supports deferring to patient preference
when the pt is:
- Requesting an ordered lesser potent pain medication.
Least to most potent pain medications are defined
as: acetaminophen < NSAID < tramadol < opioids
(morphine, oxycodone, hydromorphone).
- Requesting a lesser dose of the same medication IF
ORDERED.
- Requesting a less intrusive route of administration
if both routes are prescribed by the provider (PO <
IV).
01/19/25 17:45
Heparin 55510 Units/250 ml 25,000 units in 250 ml IV PER PROTOCOL
Weight to be used for heparin protocol in kilograms (kg):: 86.3
Protocol:: Cardiac Tx/Acute Coronary
PTT Goal Range to be used:: PTT 73 to 111 seconds
Order type:: Initial
INITIAL Infusion Dose (UNITS/KG/hr) & then follow protocol:: 12 units/kg/hr
Infusion Dose in UNITS/hr & then follow protocol (UNITS/hr):: 1,000
INFUSION RATE in mL/hr & then follow protocol (mL/hr):: 10
PTT less than or equal to 64 seconds:: Increase rate by 200 units/hr (+ 2 mL/hr)
PTT 64.1 to 72.9 seconds:: Increase rate by 100 units/hr (+ 1 mL/hr)
PTT 73 to 111 seconds:: Target Range. No change in rate.
PTT 111.1 to 130.9 seconds:: Decrease rate by 100 units/hr (- 1 mL/hr)
PTT 131 to 199.9 seconds:: HOLD for 1 hr. Then decrease rate by 200 units/hr (- 2 mL/hr)
PTT greater than or equal to 200 seconds:: HOLD for 2 hrs & Notify Provider. Then decrease by 200 units/hr (-
2 mL/hr)
Lab follow-up:: Each change, PTT q6h until 2 consecutive are therapeutic. Then PTT
daily.
01/19/25 18:14
PTT Urgent
Comment: Obtain baseline before beginning heparin infusion if not already collected
01/19/25 21:16
HYDROmorphone [Dilaudid] 0.5 mg IV Q3HPRN PRN
HYDROmorphone [Dilaudid] 0.5 mg IV Q4HPRN PRN
Ondansetron Injectable [Zofran] 4 mg IV Q6HPRN PRN
01/19/25 21:16
VTE Contraindication Routine
VTE Mechanical Device Contraindication: Medical Contraindication
Pharmocologic Contraindication: Medical Contraindication
Comment: pt ot go on iv heparin gtt
Heparin Protocol- PTT Orders As Directed
PTT per Heparin protocol: -Obtain CBC and baseline PTT - if not already collected.
-Obtain PTT 6 hours from start of infusion. Then, every 6 hours until 2 consecutive
PTT's are therapeutic. Then, PTT Daily.
-With each rate change, obtain PTT every 6 hours until 2 consecutive PTT's are
therapeutic. Then, PTT Daily.
Activity As Directed
Activity Level: As Tolerated
Intake/ Output As Directed
Frequency: Per unit guidelines
Notify MD As Directed
Notify physician if: PTT is greater than or equal to 200.
Vital Signs As Directed
Frequency: Per unit guidelines
Weight As Directed
Frequency: Daily
01/20/25 07:05
CBC/With Diff [Complete Blood Count/With Diff] IN AM
01/20/25 08:00
Pantoprazole [Protonix IV] 40 mg IV DAILY
01/22/25 11:00
DC Protocol for Telemetry ONCE
Abnormal Lab Results
01/19/25 01/19/25
13:54 16:14
RBC 3.58 L 10^6/uL
(4.20-5.40)
Hgb 11.9 L g/dL
(12.0-16.0)
Hct 35.7 L %
(37.0-47.0)
MCV 99.7 H fL
(81.0-99.0)
MCH 33.2 H pg
(27.0-31.0)
RDW 22.7 H %
(11.5-14.5)
Absolute Lymphs (auto) 0.9 L 10^3/uL
(1.2-3.4)
Absolute Monos (auto) 0.9 H 10^3/uL
(0.1-0.6)
Lymphocytes % 13.2 L %
(20.5-51.1)
Monocytes % 14.0 H %
(1.7-9.3)
Glucose 123 H mg/dl
(70-99)
Ur Occult Blood Reflex 2+ A
(Negative)
Leukocyte Esterase Rfl 1+ A
(Negative)
Urine WBC (Reflex) 11-15 A /HPF
(0-5)
Urine Bacteria (Reflex) Few A
(Negative)
Urine Glucose 4+ A
(Negative)
Urine Albumin (Reflex) 1+ A
(Neg - Trace)
01/19/25 17:31
01/19/25 13:54
Vital Signs
Initial and Last Documented VS:
Initial Vital Signs
Temp Pulse Resp BP Pulse Ox
98.5 F 78 16 106/62 100
01/19/25 11:38 01/19/25 11:38 01/19/25 11:38 01/19/25 11:38 01/19/25 11:38
Last Documented Vital Signs
Temp Pulse Resp BP Pulse Ox
98.2 F 74 16 123/64 98
01/20/25 15:40 01/20/25 15:40 01/20/25 15:40 01/20/25 15:40 01/20/25 16:41
MDM/Problems Addressed
Differential Diagnosis Includes:
Patient's symptoms consistent with her recurrent SBO. Workup in progress.
*Radiology
Radiology exam reviewed: radiology read reviewed (Recurrent early SBO. Transition ileum)
*Pulse Oximetry
Patient hypoxic: no
*Critical Care Note
Total Time (30-74mins, 75-104mins- exclusive of procedures): Not Applicable
Data Reviewed
Review of Other/Old Records Reveals: Labs, Records, Radiology Studies and Discharge Summary
Update Note
Update Note:
Admission for early SBO. Bowel rest fluids pain management
ED Attending Note
-
Portions of this chart may have been created with voice recognition software.� Occasional wrong word or��sound alike� substitutions may have occurred due to the inherent limitations of voice recognition software.
Discharge Plan
Departure
Patient Disposition: Admit
Date of Disposition: 01/19/25
Time of Disposition: 16:16
Presentation/result/management discussed w/ accepting MD/DO: Hospitalist
Discharge Problem:
Early SBO, History of metastatic breast CA
Interventions
Interventions:
*Risk Screen - Suicide Last Done: 01/19/25 11:38
*General Assessment Last Done: 01/19/25 13:57
*Neglect/Abuse Screening Last Done: 01/19/25 11:38
*ED- Fall Risk Assessment Last Done: 01/19/25 13:57
*ED COVID-19 Vaccine History Last Done: 01/19/25 13:57
*Nursing Disposition Last Done: 01/19/25 21:16
UG-Oyikhc-Xiwuyyxcvj Assessment Last Done: 01/19/25 13:57
Discharge Date and Time
Discharge Date/Time: 01/19/25 21:16
[2025-01-19] MEDS: DILAUDID 0.5 MG IV ×2 (13:50→16:36)
[2025-01-19] MEDS: ZOFRAN 4 MG IV (13:50)
[2025-01-19] MEDS: NSS 500 IV (13:53)
[2025-01-19 14:15] LABS: ALT (SGPT) 21 U/L (0-35); AST (SGOT) 26 U/L (14-36); Alkaline Phosphatase 105 U/L (38-126); Blood Urea Nitrogen 14 mg/dl (7-17); Carbon Dioxide 25 mmol/L (22-30); Chloride 107 mmol/L (98-107); Glucose 123 mg/dl (70-99); Potassium 4.5 mmol/L (3.5-5.1); Sodium 140 mmol/L (135-145); Total Bilirubin 1.3 mg/dl (0.2-1.3); Total Protein 6.6 g/dl (6.3-8.2); eGFR > 60.00
[2025-01-19 14:28] LABS: % Basophils 0.5 % (0-2); % Eosinophils 0.5 % (0-6); % Immature Granulocytes 0.2 % (0-0.5); % Lymphocytes 13.2 % (20.5-51.1); % Neutrophils 71.6 % (42.2-75.2); Absolute Lymphocytes 0.9 10^3/uL (1.2-3.4); Absolute Monocytes 0.9 10^3/uL (0.1-0.6); Absolute Neutrophils 4.6 10^3/uL (1.4-6.5); Hematocrit 35.7 % (37.0-47.0); Hemoglobin 11.9 g/dL (12.0-16.0); Mean Corp Hgb Conc. 33.3 g/dL (33.0-37.0); Mean Corpuscular Hgb 33.2 pg (27.0-31.0); Mean Corpuscular Volume 99.7 fL (81.0-99.0); Mean Platelet Volume 10.1 fL (7.4-10.4); Nucleated Red Blood Cells % 0 %; Platelet Count 208 10^3/uL (130-400); Red Blood Cell Count 3.58 10^6/uL (4.20-5.40); Red Cell Dist. Width 22.7 % (11.5-14.5); White Blood Cell Count 6.4 10^3/uL (4.8-10.8)
[2025-01-19 14:37] LABS: Lipase 67 U/L (23-300)
[2025-01-19 15:16] LABS: Anisocytosis 1+; Macrocytosis 1+; Normal RBC Morphology No
[2025-01-19 15:17] LABS: Hypochromasia Moderate; Microcytosis 1+; Stomatocytes 1+
--- NOTE | 2025-01-19 16:25 | HPS.HSE ---
Family Physician
<CARISSA Saini - Last Filed: 01/19/25 17:41>
-
Family Physician: Pedro Hartmann
Chief Complaint
<CARISSA Saini - Last Filed: 01/19/25 17:41>
-
Abdominal pain nausea
History of Present Illness
59-year-old female complaining of abdominal pain with nausea that started 2 days ago. She reports it seemed to improve yesterday but had recurring episodes today that felt like her prior history of bowel obstructions. She does report a bowel
movement yesterday. She has current breast cancer with mets to liver. She denies fever, chills, headache, chest pain, palpitations, cough, shortness of breath, vomiting, diarrhea, urinary symptoms she has past medical history of paroxysmal A-fib,
history of HER2 estrogen positive breast cancer Dx 2002 chemo/radiation/right mastectomy Taxol/tamoxifen, mets to spine 2014 status post radiation on Ibrance and letrozole until mets to liver May 2024 currently on Xeloda, bilateral lower legs
bilateral lung DVT/PE 2020 placed on Eliquis, IBS, diverticulosis, LBBB, gastric ulcers, small bowel obstructions, partial left nephrectomy due to benign tumor, former smoker.
<Renny Ivey MD - Last Filed: 01/19/25 17:34>
-
Medical History
<CARISSA Saini - Last Filed: 01/19/25 17:41>
Past Medical History
Past Medical History: Reports Other
Additional Past Medical History:
paroxysmal A-fib
history of HER2 estrogen positive breast cancer Dx 2002 chemo/radiation/right mastectomy Taxol/tamoxifen
mets to spine 2014 status post radiation on Ibrance and letrozole
mets to liver May 2024 currently on Xeloda
bilateral lower legs bilateral lung DVT/PE 2020 placed on Eliquis
IBS
diverticulosis
LBBB
GERD
gastric ulcers
Multiple small bowel obstructions
partial left nephrectomy due to benign tumor
former smoker
Past Surgical History: Reports Other
Additional Past Surgical History:
Partial left nephrectomy secondary to benign tumor
Skin CA removal
Right mastectomy secondary to breast cancer 2002
Hysterectomy
Partial left nephrectomy
Social History
Tobacco: Former Smoker (Quit 2002 prior 1 pack 20 years)
Alcohol: None
Drug: None
Personal:
Living: With Family
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
Family History
Family History: Not pertinent
Allergies / Home Medications
Allergies reflects when Allergies were last updated in [employer].
Home Medications with original date entered in [employer]
Allergy/Medication List:
Allergies
Allergy/AdvReac Type Severity Reaction Status Date / Time
No Known Allergies Allergy Verified 10/12/24 20:00
Home Medications
cholecalciferol (vitamin D3) 50 mcg (2,000 unit) tablet 2,000 units PO DAILY@1200 Supplement 11/18/19
omeprazole magnesium 20 mg tablet,delayed release (Prilosec OTC) 20 mg PO DAILY@1200 Gastrointestinal issue 04/29/20
carvedilol 12.5 mg tablet (Coreg) 12.5 mg PO BID Blood Pressure 12/16/22
ezetimibe 10 mg tablet (Zetia) 10 mg PO DAILY High Cholesterol 12/16/22
sacubitril 97 mg-valsartan 103 mg tablet (Entresto) 1 tab PO BID Heart Failure 12/16/22
spironolactone 25 mg tablet 12.5 mg PO DAILY heart failure/BP 12/16/22
apixaban 5 mg tablet (Eliquis) 5 mg PO BID Blood Clot Prevention/Tx 01/02/24
capecitabine 500 mg tablet 1,500 mg PO UD Cancer 08/01/24
dapagliflozin propanediol 10 mg tablet 10 mg PO DAILY Heart Failure 30 days #30 tabs 08/03/24
ammonium lactate 12 % topical cream 1 applic topical DAILY hands and feet 01/19/25
ondansetron HCl 4 mg tablet 4 mg PO DAILYPRN PRN nausea and vomiting 01/19/25
Review of Systems
<CARISSA Saini - Last Filed: 01/19/25 17:41>
-
History Source: Patient and Family ( at bedside)
A 12 point ROS was completed and negative except as noted: Yes
Constitutional: Denies Fever or Chills
EENT: Denies Sore Throat or Runny Nose
Respiratory: Denies Cough or Trouble Breathing
Cardiac: Denies Chest Pain, Diaphoresis, Palpitations or Syncope
Abdomen/GI: Reports Abdominal Pain (Mid abdominal pain), Nausea and Other (Had bowel movement yesterday 01/19/2020 25 x 2 pudding-like); Denies Vomiting, Diarrhea, Constipated or Bloody Stools
: Denies Dysuria, Frequency, Flank Pain, Incontinence, Difficulty Voiding or Urgency
Musculoskeletal: Denies Joint Pain or Edema
Skin: Denies Itching or Rash
Neurological: Denies Dizzy, Headache or Weakness
Endocrine: Reports No Symptoms
Hematologic/Lymphatic: Reports No Symptoms
Psych: Reports Calm
Physical Exam
<CARISSA Saini - Last Filed: 01/19/25 17:41>
Vital Signs
Vital Signs
Temp Pulse Resp BP Pulse Ox
98.5 F 79 20 106/62 100
01/19/25 11:38 01/19/25 13:47 01/19/25 13:59 01/19/25 11:38 01/19/25 13:47
Physical Exam
General: Conversant
HEENT: NormoCephalic, Anicteric, PERRLA, [place]augen Conjunctivae, No Ptosis and Other (Dry oral mucosa)
Respiratory: Clear; No Wheezes, Rales or Rhonchi
Cardiac: S1/S2 and Regular Rhythm; No Murmur, Rub, Gallop or Peripheral Edema
Breast: Deferred by me
GI: Soft, Non Distended, Normal Bowel Sounds, Tender (Mid abdomen) and No Hepatosplenomegaly
Rectal: Deferred by Provider
Genito-urinary: Deferred by me
Musculoskeletal: No Clubbing, No Cyanosis and No Edema
Skin: Warm and Dry; No Rash or Jaundice
Neuro: No Motor Deficits, Nonfocal/grossly intact, Cranial Nerves Intact and No Sensory Deficits; No Slurred Speech, Facial Droop, Tremors or Sedated
Psych: Calm
Laboratory Results
<CARISSA Saini - Last Filed: 01/19/25 17:41>
-
01/19/25 13:54
01/19/25 13:54
Laboratory Results
Total Bilirubin 1.3 mg/dl (0.2-1.3) 01/19/25 13:54
AST 26 U/L (14-36) 01/19/25 13:54
ALT 21 U/L (0-35) 01/19/25 13:54
Alkaline Phosphatase 105 U/L (38-126) 01/19/25 13:54
Lipase 67 U/L (23-300) 01/19/25 13:54
Data Reviewed
<CARISSA Saini - Last Filed: 01/19/25 17:41>
-
CT Scan: Report Reviewed by me
Lab Data: Labs Reviewed by me
Impression/Plan
<CARISSA Saini - Last Filed: 01/19/25 17:41>
-
Impression/plan:
Admit to telemetry
#Abdominal pain secondary to early small bowel obstruction
#History of multiple small bowel obstructions self resolved did not require surgery
- N.p.o.
- IV NSS 100 cc an hour x 2 L
-IV Protonix
-Zofran as needed
-Dilaudid as needed pain
- Consult general surgery -Dr. Moise Garcia made aware
CT abdomen pelvis IV contrast only:
1. Mild small bowel dilatation with transition point suspected in the mid ileum. New from 09/15/2024. However, similar appearance to the 2023 studies..
2. Subtle small hypodense hepatic lesions concerning for metastatic disease. Decreased in number and size.
3. Mild free fluid in the right paracolic gutter and pelvis probable reactive to the small bowel process and less likely acute appendicitis. The appendix is normal diameter. New
4. Hepatic fatty infiltration. Progressed
#Hypotension likely secondary to decreased oral intake/pain control
BP 95/28
Will give IV NSS 100 cc an hour x 2 L
-Hold carvedilol 12.5 mg twice daily, Farxiga, Entresto, spironolactone
#HER2 estrogen positive breast cancer Dx 2002 /mets to spine 2015/mets to liver May 2024
#2003 chemo/radiation/right mastectomy Taxol/tamoxifen
#mets to spine 2015 status post radiation on Ibrance and letrozole
# mets to liver May 2024 currently on Xeloda twice daily 3 AM and 3 PM
- Continue Xeloda twice daily at 3 AM and 3 PM
#History of peeling hands and feet due to Xeloda
uses ammonium lactate lotion
#Paroxysmal A-fib
-Hold Eliquis due to SBO
-Hold carvedilol due to hypotension
- Will start heparin drip without bolus
#CHF/cardiomyopathy
Patient follows with [facility] cardiology Dr. Delgado
I/O, monitor weights
--Hold carvedilol 12.5 mg twice daily, Farxiga, Entresto, spironolactone
-Check EKG
2D echo 06/12/2024: EF 35-40% moderately reduced systolic function, basal to mid anteroseptal, basal to mid inferior septal and apical akinesis/dyskinesis with aneurysmal formation in the mid portions, mild TR, PASP 38 mmHg
#HLD
Continue Zetia 10 mg daily
#GERD
#Gastric ulcers
- Continue Prilosec 20 mg daily
#Partial left nephrectomy due to benign tumor
#IBS hx
Other PMH:
diverticulosis,
LBBB
Former smoker
DVT prophylaxis
Hold Eliquis 5 mg twice daily changed to IV heparin
Full code
[2025-01-19 16:49] LABS: Urine Albumin 1+ (Neg - Trace); Urine Bilirubin Negative (Negative); Urine Character Clear (Clear); Urine Color Yellow; Urine Glucose 4+ (Negative); Urine Ketone Negative (Negative); Urine Leukocyte 1+ (Negative); Urine Nitrite Negative (Negative); Urine Occult Blood 2+ (Negative); Urine Urobilinogen Negative (Neg - 1+)
[2025-01-19 17:03] LABS: Urine Red Blood Cell 0-2 /HPF (0-2)
[2025-01-19 17:04] LABS: Urine Bacteria Few (Negative)
--- NOTE | 2025-01-19 17:35 | W.PN.UPDATE ---
Update Note
Progress Note Update
59 female with past paroxysmal atrial fibrillation on Eliquis, breast cancer with mets to liver, IBS, diverticulosis, left bundle branch block, GERD, gastric ulcers, multiple small bowel obstruction, partial left nephrectomy due to benign tumor,
presents with complaints of abdominal pain nausea that began 2 days ago with out vomiting. States he came in because of worsening pain tolerated any further.
NAD
Scleral Anicteric
DMM
No JVD
CTABL
RRR, S1/S2
Soft, tenderness, ND, BS+
Warm, Dry
AAOx3
Calm
SBO likely secondary to previous adhesions, CT demonstrating early obstruction findings.
Consult surgery
Antibiotics
Analgesics
IV fluids
N.p.o.
HFrEF
Hypovolemic
Hold diuretics and GDMT
Reassess volume status tomorrow
Hypotension
Hold GDMT antihypertensives
IV fluids gently IV hydrate
Paroxysmal atrial fibrillation
Hold Eliquis
Breast cancer: outpatient hematology and cardiology follow up
[2025-01-19] MEDS: HEPARIN 25000 UNITS/250 ML IV (18:24)
[2025-01-19 18:34] LABS: APTT 28.5 Sec (23.4-35.0)
[2025-01-19] MEDS: NSS 1000 IV (19:09)
[2025-01-20 01:06] LABS: APTT 37.2 Sec (23.4-35.0)
[2025-01-20] MEDS: DILAUDID 0.5 MG IV (01:06)
[2025-01-20 04:00] VITALS: BP 92/46
[2025-01-20] MEDS: NSS 1000 IV (05:55)
[2025-01-20 07:47] LABS: APTT 98.1 Sec (23.4-35.0)
[2025-01-20 07:49] LABS: % Basophils 0.6 % (0-2); % Immature Granulocytes 0.4 % (0-0.5); % Lymphocytes 21.9 % (20.5-51.1); % Monocytes 17.3 % (1.7-9.3); % Neutrophils 58.8 % (42.2-75.2); Absolute Eosinophils 0.1 10^3/uL (0-0.7); Absolute Lymphocytes 1.1 10^3/uL (1.2-3.4); Absolute Monocytes 0.8 10^3/uL (0.1-0.6); Absolute Neutrophils 2.8 10^3/uL (1.4-6.5); Hematocrit 32.8 % (37.0-47.0); Hemoglobin 10.7 g/dL (12.0-16.0); Mean Corp Hgb Conc. 32.6 g/dL (33.0-37.0); Mean Corpuscular Hgb 32.7 pg (27.0-31.0); Mean Corpuscular Volume 100.3 fL (81.0-99.0); Mean Platelet Volume 10.4 fL (7.4-10.4); Nucleated Red Blood Cells % 0 %; Platelet Count 184 10^3/uL (130-400); Red Blood Cell Count 3.27 10^6/uL (4.20-5.40); Red Cell Dist. Width 22.5 % (11.5-14.5); White Blood Cell Count 4.8 10^3/uL (4.8-10.8)
[2025-01-20 07:55] VITALS: BP 104/57
[2025-01-20] MEDS: NSS (PRESERVATIVE FREE) 10 ML IV (09:45)
[2025-01-20] MEDS: PROTONIX IV 40 MG IV (09:45)
[2025-01-20] MEDS: FLUSH (NSS) 1 FLUSH IV (09:45)
[2025-01-20 10:05] VITALS: BMI 41.0
--- NOTE | 2025-01-20 10:49 | W.DCSUMMARY ---
Discharge Summary
Discharge Data
Date of Admission: 01/19/25
Date of Discharge: 01/20/25
-
Pending Results: No
Hospital Course
Presented with abdominal pain and some nausea. Found to have concerning findings of small bowel obstruction on CT that was early. Was made n.p.o. started on IV fluids analgesics. Evaluated by surgery that recommended to initiate clear liquid diet
advance to low residue as passing gas and abdominal distention and pain were improving. Tolerated low residue diet well and will be discharged home. Outpatient follow-up with general surgery GI PCP.
While n.p.o. Eliquis was held was started on a heparin drip no last chance if surgery was needed. Surgery was not needed heparin drip was discontinued and reinitiated on Eliquis.
GI follow-up for hepatic fatty infiltration
Cardiology follow-up for heart failure though was not treated for heart failure on this admission
CTAp
IMPRESSION: Mild small bowel dilatation with transition point suspected in the mid ileum. New from 09/15/2024. However, similar appearance to the 2023 studies..
Subtle small hypodense hepatic lesions concerning for metastatic disease. Decreased in number and size.
Mild free fluid in the right paracolic gutter and pelvis probable reactive to the small bowel process and less likely acute appendicitis. The appendix is normal diameter. New
Hepatic fatty infiltration. Progressed
Was seen and examined on the day of discharge no new complaints. No acute overnight events.
No bowel movement however passing a lot of gas. Abdominal pain has resolved. Abdominal distention improved
She would like to go home after she eats dinner. She understands that if she does not tolerate low residue diet for dinner then she would have to stay
NAD
Scleral Anicteric
MMM
No JVD
CTABL
RRR, S1/S2
Soft, NT, ND, BS+
Warm, Dry
AAOx3
Calm
More than 30 minutes spent in discharge including
Final examination of the patient
Summarizing hospital stay
Instructions for continuing care to all relevant caregivers
Preparation of discharge records, prescriptions, and referral forms
Total time spent (in minutes): 33mins
Discharge Plan
-
Patient Disposition: Home (Routine Discharge)
Discharge Diagnosis/Procedures: Small bowel obstruction
Condition: Good
Diet: As tolerated and Low Residue
Activity: As tolerated
Activity Restrictions/Additional Instructions:
Presented with abdominal pain and some nausea. Found to have concerning findings of small bowel obstruction on CT that was early. Was made n.p.o. started on IV fluids analgesics. Evaluated by surgery that recommended to initiate clear liquid diet
advance to low residue as passing gas and abdominal distention and pain were improving. Tolerated low residue diet well and will be discharged home. Outpatient follow-up with general surgery GI PCP.
While n.p.o. Eliquis was held was started on a heparin drip no last chance if surgery was needed. Surgery was not needed heparin drip was discontinued and reinitiated on Eliquis.
GI follow-up for hepatic fatty infiltration
Cardiology follow-up for heart failure though was not treated for heart failure on this admission
CTAp
IMPRESSION: Mild small bowel dilatation with transition point suspected in the mid ileum. New from 09/15/2024. However, similar appearance to the 2023 studies..
Subtle small hypodense hepatic lesions concerning for metastatic disease. Decreased in number and size.
Mild free fluid in the right paracolic gutter and pelvis probable reactive to the small bowel process and less likely acute appendicitis. The appendix is normal diameter. New
Hepatic fatty infiltration. Progressed
Referrals:
Pedro Hartmann DO [Family Provider] -
Moise Garcia MD [Active] -
Prescriptions:
Continued
cholecalciferol (vitamin D3) 2,000 UNITS tablet
2,000 units PO DAILY@1200
omeprazole magnesium [Prilosec OTC] 20 MG tablet,delayed release (DR/EC)
20 mg PO DAILY@1200
carvedilol [Coreg] 12.5 mg Tablet
12.5 mg PO BID
spironolactone 25 mg Tablet
12.5 mg PO DAILY
ezetimibe [Zetia] 10 mg Tablet
10 mg PO DAILY
Entresto 97-103 mg Tablet
1 tab PO BID
Eliquis 5 MG tablet
5 mg PO BID
capecitabine 500 mg Tablet
1,500 mg PO UD
Rx Instructions:
twice a day for 14 days, then off for 7 days
dapagliflozin propanediol 10 mg Tablet
10 mg PO DAILY 30 Days Qty: 30 1RF
ondansetron HCl 4 mg tablet
4 mg PO DAILYPRN PRN (Reason: nausea and vomiting)
ammonium lactate 12 % Cream
1 applic TOPICAL DAILY
Discharge Orders:
Discharge Patient (As Directed); Ordered 01/20/25
Ordered By: Renny Ivey
Discharge Date and Time
Print Language: MALAGASY
[2025-01-20 11:08] VITALS: BMI 41.0
[2025-01-20 11:35] VITALS: BP 103/45
--- NOTE | 2025-01-20 12:26 | CM ---
Alert awake oriented lives with Lyndon in a 2 story home with 2 steps to enter and 12 steps to bed bathroom.She is indpedent in driveing and ADLs.No DME. Son Aris will drive Her home today.
No VN/SNF hx.
Pharmacy [facility] [address]
PCP Dr Hartmann
PLAN Home no needs
[2025-01-20] MEDS: ELIQUIS 5 MG PO (12:30)
--- NOTE | 2025-01-20 13:34 | CON.GS ---
Consultation
-
Date/Time Consultation Performed: 01/20/25 09
Medical History
-
Chief Complaint: abdominal pain
History of Present Illness:
Ms Funk is a 59 yo female with a h/o dvt/pe on Eliquis, breast cancer dx in 2002 with mets to spine tx with XRT in 2014 and presumed liver mets, partial left nephrectomy with path benign, EFREN/BSO in 2004 and history of recurrent sbo's who
presents with abdominal pain similar to prior SBO's which began 3 days ago. She denies nausea or vomiting. Last night after presentation, she began passing flatus and pain resolved. She denies active nausea or vomiting. On exam, she has no
tenderness or distention.
Past Medical History
Past Medical History: Cancer (skin, stage 4 breast with mets to spine/liver) and Other (obesity, dvt/pe on eliquis)
Past Surgical History: Gynecological (EFREN/BSO), Urological (RAL left partial nephrectomy) and Other (right mastectomy and ALND)
Social History
Tobacco: Non-Smoker
Alcohol: None
Drug: None
Employment: Employed
Family History
Family History: Reviewed & Not Pertinent
Allergies / Home Medications
Allergy/AdvReac Type Severity Reaction Status Date / Time
No Known Allergies Allergy Verified 10/12/24 20:00
�Medication �Instructions �Recorded �Confirmed �Type
cholecalciferol (vitamin D3) 50 2,000 units PO DAILY@1200 11/18/19 01/19/25 History
mcg (2,000 unit) tablet Supplement
omeprazole magnesium 20 mg 20 mg PO DAILY@1200 04/29/20 01/19/25 History
tablet,delayed release (Prilosec Gastrointestinal issue
OTC)
carvedilol 12.5 mg tablet (Coreg) 12.5 mg PO BID Blood Pressure 12/16/22 01/19/25 History
ezetimibe 10 mg tablet (Zetia) 10 mg PO DAILY High Cholesterol 12/16/22 01/19/25 History
sacubitril 97 mg-valsartan 103 mg 1 tab PO BID Heart Failure 12/16/22 01/19/25 History
tablet (Entresto)
spironolactone 25 mg tablet 12.5 mg PO DAILY heart failure/BP 12/16/22 01/19/25 History
apixaban 5 mg tablet (Eliquis) 5 mg PO BID Blood Clot 01/02/24 01/19/25 History
Prevention/Tx
capecitabine 500 mg tablet 1,500 mg PO UD Cancer 08/01/24 01/19/25 History
dapagliflozin propanediol 10 mg 10 mg PO DAILY Heart Failure 30 08/03/24 01/19/25 Rx
tablet days #30 tabs
ammonium lactate 12 % topical cream 1 applic topical DAILY hands and 01/19/25 01/19/25 History
feet
ondansetron HCl 4 mg tablet 4 mg PO DAILYPRN PRN nausea and 01/19/25 01/19/25 History
vomiting
Review of Systems
-
History Source: Patient
All other systems: Negative unless noted
A 10 point review of systems was completed, and was negative except as per HPI.
Physical Exam
Vital Signs
Temp Pulse Resp BP Pulse Ox
98.1 F 74 18 103/45 97
01/20/25 11:35 01/20/25 11:35 01/20/25 11:35 01/20/25 11:35 01/20/25 11:35
01/19/25 01/20/25 01/21/25
06:59 06:59 06:59
Actual Weight 112.746 kg 113.455 kg
Body Mass Index (BMI) 41.0
Lab Results
01/20/25 07:05
01/19/25 13:54
WBC 4.8 10^3/uL (4.8-10.8) 01/20/25 07:05
Hgb 10.7 g/dL (12.0-16.0) L 01/20/25 07:05
Hct 32.8 % (37.0-47.0) L 01/20/25 07:05
Plt Count 184 10^3/uL (130-400) 01/20/25 07:05
Abs Immat Gran (auto) 0.0 10^3/uL (0-0.05) 01/20/25 07:05
Neutrophils % 58.8 % (42.2-75.2) 01/20/25 07:05
Physical Exam
General: Well Developed and No Apparent Distress
HEENT: Moist Mucous Membranes
Respiratory: Non Labored Respirations
GI: Soft, Non Tender, Non Distended and Obese
Skin: Warm and Dry
Neuro: Awake, Alert and AO x 3
Psych: Calm
Data Reviewed
-
CT Scan: Image Personally Visualized and interpreted, Report Reviewed by me, Discussed with Physician and Discussed with Patient
Labs: Labs Reviewed by me, Discussed with Physician and Discussed with Patient
Old Records: Reviewed
Assessment / Plan
-
Patient is a 58 yo F with stage 4 breast ca on active treatment who p/w recurrent SBO secondary to adhesions possible malignant well known to GS service from prior admissions.
Recent CT scan imaging with decreased number/size of hepatic lesions with pSBO with transition point likely near the mid ileum.
Given her persistent issues she likely will need operative intervention at some point in time; however, currently improving with nonoperative measures of bowel rest and IVF.
--Start on CLD this am and ADAT to LRD
--Ok for d/c from surgical standpoint once tolerating diet
--OP follow up with surgery
[2025-01-20 15:40] VITALS: BP 123/64
--- NOTE | 2025-01-20 16:42 | PTCARENOTE ---
Pt AAO x3, HUGHES well, OOB in room/to BR; lawanda well. VSS. Telemetry:NSR; sinus tachy with activity. On room air; pulse ox 98%, no SOB. Abd obese, soft, lawanda low residue diet ; DR. Evelio Ivey notified. Voids in BR without difficulty. Resting in bed
at present. Pt anticipating DC home today.
== END 2025-01-20 17:34 | disposition home or self-care (01) | DRG 389 ==
LOC: 4 EAST ACU 18:42
PROVIDERS: Clinical Nurse Specialist Family Health; ADMITTING PHYSICIAN Hospitalist; CONSULT PHYSICIAN Surgery; EMERGENCY PHYSICIAN Emergency Medicine; FAMILY PHYSICIAN Family Medicine
DX: K56.600 Partial intestinal obstruction, unspecified as to cause (principal); C78.7 Secondary malignant neoplasm of liver and intrahepatic bile duct; I42.9 Cardiomyopathy, unspecified; I50.20 Unspecified systolic (congestive) heart failure; C79.51 Secondary malignant neoplasm of bone; Z87.891 Personal history of nicotine dependence; I95.9 Hypotension, unspecified; I48.0 Paroxysmal atrial fibrillation; Z79.899 Other long term (current) drug therapy; K21.9 Gastro-esophageal reflux disease without esophagitis; K25.9 Gastric ulcer, unspecified as acute or chronic, without hemorrhage or perforation; C50.919 Malignant neoplasm of unspecified site of unspecified female breast; Z79.01 Long term (current) use of anticoagulants; Z80.3 Family history of malignant neoplasm of breast; Z90.11 Acquired absence of right breast and nipple; Z90.710 Acquired absence of both cervix and uterus; Z92.3 Personal history of irradiation
CPT/HCPCS: 74177; 80053; 81003; 81015; 83690; 85025; 85730; 87086; 96361; 96365; 96366; 96375; 96376; 99284; Q9967

== ENCOUNTER 2025-01-23 10:58 | Outpatient (RCR) | payer OTHER, SELFPAY | END 2025-01-23 23:59 | disposition home or self-care (01) | LOC: RPT 10:58 | PROVIDERS: ATTENDING PHYSICIAN Nurse Practitioner Family; FAMILY PHYSICIAN Family Medicine | DX: M62.838 Other muscle spasm (principal); Z73.6 Limitation of activities due to disability; M54.2 Cervicalgia; M79.601 Pain in right arm | CPT/HCPCS: 97110; 97164 ==

== ENCOUNTER 2025-03-19 15:23 | Emergency (ER) | payer OTHER, SELFPAY ==
[2025-03-19 15:30] VITALS: BP 111/78
--- NOTE | 2025-03-19 16:18 | ED.SKININJ ---
HPI-Injury
General
Chief Complaint: Skin Surface Trauma
Source: patient
Exam Limitations: none
Time Seen by Provider: 03/19/25 16:17
Nursing documentation reviewed up to this point in time: agreed with
History of Present Illness-Injury
Initial Injury comments:
59-year-old female with history of A-fib on Eliquis, receiving chemotherapy for breast cancer with liver mets, states she sliced the tip of her right ring finger on a mandolin within the past 2 hours at home. She will check with her PCP to see if
her tetanus immunization is up-to-date.
Past History
Past History
ED Past Medical History: Arrthythmia (Paroxysmal atrial fibrillation), Cancer (Metastatic breast cancer) and Other (IBS, diverticulosis, L BBB, Ulcers, small bowel obstruction)
ED Past Surgical History: Gynecological (hysterectomy,), Urological (Partial left Nephrectomy) and Other (Skin cancer removal, right mastectomy)
Social History
Tobacco: Former smoker
Alcohol: None
Drug: None
Personal:
Living: with family
Employment: Other
Family History
Family History: Other (Noncontributory sister passed from breast cancer father passed from gallbladder cancer)
Review of Systems
Review of Systems
Allergies reviewed?: Yes
All Other Systems: ROS reviewed and negative except as documented in HPI and ROS
Skin: Reports other (Cut tip of right ring finger.)
Neurological: Reports other (Neuropathy hands and feet)
Phy Exam
Physical Exam
Physical Exam:
PHYSICAL EXAMINATION:
General: no apparent distress, not acutely ill
Neuro: alert and oriented.
Psychiatric: well kept. interactive and cooperative
Musculoskeletal: Moves with ease
Skin: Warm, pink. There is a 4 mm round skin avulsion tip of the right ring finger. Slow venous oozing.
Course
Vital Signs
Initial and Last Documented VS:
Initial Vital Signs
Temp Pulse Resp BP Pulse Ox
98.0 F 99 20 111/78 99
03/19/25 15:30 03/19/25 15:30 03/19/25 15:30 03/19/25 15:30 03/19/25 15:30
Last Documented Vital Signs
Temp Pulse Resp BP Pulse Ox
98.0 F 99 20 111/78 99
03/19/25 15:30 03/19/25 15:30 03/19/25 15:30 03/19/25 15:30 03/19/25 16:19
MDM/Problems Addressed
MDM/Problems Addressed:
59-year-old female with lengthy medical history including history of A-fib on Eliquis, receiving chemotherapy for breast cancer with liver mets, states she sliced the tip of her right ring finger on a mandolin within the past 2 hours at home. She
will check with her PCP to see if her tetanus immunization is up-to-date.
Area cleansed with saline, Gelfoam and 2 gauze dressing applied with good hemostasis.
aluminum fingertip splint provided
*Pulse Oximetry
SaO2: 99
Oxygen Mode of Delivery: Room air
Patient hypoxic: not evaluated
*Critical Care Note
Total Time (30-74mins, 75-104mins- exclusive of procedures): Not Applicable
ED Attending Note
-
Portions of this chart may have been created with voice recognition software.� Occasional wrong word or��sound alike� substitutions may have occurred due to the inherent limitations of voice recognition software.
Discharge Plan
Departure
Patient Disposition: Home (Routine Discharge)
Date of Disposition: 03/19/25
Time of Disposition: 16:23
Patient with high blood pressure during this ER visit?: No
Condition: Good
Discharge Problem:
Avulsion of skin of finger
Instructions: Wound Care (DC)
Prescriptions:
No Action
cholecalciferol (vitamin D3) 2,000 UNITS tablet
2,000 units PO DAILY@1200
omeprazole magnesium [Prilosec OTC] 20 MG tablet,delayed release (DR/EC)
20 mg PO DAILY@1200
carvedilol [Coreg] 12.5 mg Tablet
12.5 mg PO BID
spironolactone 25 mg Tablet
12.5 mg PO DAILY
ezetimibe [Zetia] 10 mg Tablet
10 mg PO DAILY
Entresto 97-103 mg Tablet
1 tab PO BID
Eliquis 5 MG tablet
5 mg PO BID
capecitabine 500 mg Tablet
1,500 mg PO UD
Rx Instructions:
twice a day for 14 days, then off for 7 days
dapagliflozin propanediol 10 mg Tablet
10 mg PO DAILY 30 Days Qty: 30 1RF
ondansetron HCl 4 mg tablet
4 mg PO DAILYPRN PRN (Reason: nausea and vomiting)
ammonium lactate 12 % Cream
1 applic TOPICAL DAILY
Activity Restrictions/Additional Instructions:
As we discussed, remove the dressing in 24 hours.
Cleanse the wound daily gently with soap and water, dry well, apply antibiotic ointment and Band-Aids
Apply aluminum finger splint as needed for protection.
Call your doctor to be sure your tetanus immunization is up-to-date. You have 72 hours to get one
Interventions
Interventions:
*General Assessment Last Done: 03/19/25 15:30
Discharge Date and Time
Print Language: BAHAMIAN
== END 2025-03-19 16:52 | disposition home or self-care (01) ==
LOC: EMR 15:23
PROVIDERS: EMERGENCY PHYSICIAN Emergency Medicine; FAMILY PHYSICIAN Family Medicine
DX: S61.202A Unspecified open wound of right middle finger without damage to nail, initial encounter (principal); W27.4XXA Contact with kitchen utensil, initial encounter; I48.0 Paroxysmal atrial fibrillation; C50.919 Malignant neoplasm of unspecified site of unspecified female breast; C78.7 Secondary malignant neoplasm of liver and intrahepatic bile duct; Z79.01 Long term (current) use of anticoagulants; Z87.891 Personal history of nicotine dependence; Z90.11 Acquired absence of right breast and nipple; Z79.60 Long term (current) use of unspecified immunomodulators and immunosuppressants
CPT/HCPCS: 99282

== ENCOUNTER → 2025-03-21 07:44 | Outpatient (REF) | payer OTHER, SELFPAY | LOC: RAD 07:44 | PROVIDERS: ATTENDING PHYSICIAN Nurse Practitioner Adult Health; FAMILY PHYSICIAN Family Medicine | DX: C50.919 Malignant neoplasm of unspecified site of unspecified female breast (principal) | CPT/HCPCS: 71260; 74177; Q9967 ==